=== PATIENT | male | born 1945 | race Caucasian/White ===

== ENCOUNTER 2017-09-14 11:17 | Emergency (ER) | payer OTHER ==
[2017-09-14] MEDS ORDERED: ACETAMINOPHEN 500 MG TAB ONE (12:11)
[2017-09-14] MEDS ORDERED: IPRATROPIUM BROM 0.5MG/2.5ML ONE (13:03)
[2017-09-14] MEDS ORDERED: ALBUTEROL 2.5 MG/3 ML NEB SOL ONE (13:03)
[2017-09-14] MEDS ORDERED: METHYLPREDNISOLONE 125 MG INJ ONE (13:03)
[2017-09-14] MEDS ORDERED: CEFTRIAXONE/SWI 1gm 1 GM/10 ML SYR ONE (13:03)
[2017-09-14] MEDS ORDERED: AZITHROMYCIN 500 MG/250 ML BAG ONE (13:03)
[2017-09-14] MEDS ORDERED: NA CHLORIDE 0.9% 1,000 ML ONE (13:04)
--- NOTE | 2017-09-14 13:06 | RAD REPORT ---
EXAM DESCRIPTION: RAD - Chest Pa And Lat (2 Views) - 09/14/2017 12:56 pm CLINICAL HISTORY: COUGH Fever. COMPARISON: CHEST PA AND LAT 2 VIEW dated 06/16/2014; CHEST PA AND LAT 2 VIEW dated 11/09/2013; CHEST SINGLE VIEW dated 11/01/2013; CHEST PA AND LAT 2 VIEW dated 09/06/2013 FINDINGS: The lungs are mildly hyperexpanded compatible with COPD. The heart is normal in size. No d isplaced fractures. IMPRESSION: Mild COPD.
[2017-09-14 13:32] LABS: Absolute Lymphocytes (CBC) 0.8 K/uL (0.7-4.9); Absolute Neutrophil 6.6 K/uL (1.8-8.0); Basophils % 0.5 % (0-1.3); Eosinophils % 0.4 % (0-4.4); Hematocrit 42.2 % (39.6-49.0); Lymphocytes % 9.1 % (15.3-44.8); MCH 30.8 pg (27.0-35.0); MCV 92.2 fL (80-100); Monocytes % 11.8 % (3.3-12.3); RBC Red Blood Cell Count 4.58 M/uL (4.33-5.43)
[2017-09-14 13:54] LABS: Albumin 3.6 g/dL (3.4-5.0); Bilirubin Total 1.5 mg/dL (0.2-1.0); Potassium 3.8 mmol/L (3.5-5.1)
--- NOTE | 2017-09-14 14:25 | EDPHYS ---
Physician Documentation [facility] Name: Herbert Diaz Age: 71 yrs Sex: Male : 1945 Arrival Date: 09/14/2017 Time: 11:20 Bed 25 Private MD: Morgan Lozano ED Physician Choco Cantu HPI: 09/14 12:40 This 71 yrs old Male presents to ER via Ambulatory with complaints of Flu moses Symptoms. 12:40 The patient has shortness of breath with light activity. Onset: The symptoms/episode moses began/occurred 3 day(s) ago. Duration: The symptoms are continuous, and are steadily getting worse. The patient's shortness of breath has no apparent modifying factors. Historical: - Allergies: 11:33 Warfarin Sodium; aj 11:33 NSAIDS (Non-Steroidal Anti-Inflammatory Drug); aj - Home Meds: 11:33 levothyroxine oral [Active]; atorvastatin oral oral [Active]; aj - PMHx: 11:33 Hyperlipidemia; Hypothyroidism; aj - PSHx: 11:33 LEFT KNEE SURGERY; aj - Immunization history:: Flu vaccine is up to date. - Social history:: Smoking status: Patient/guardian denies using tobacco. - Ebola Screening: : Patient negative for fever greater than or equal to 101.5 degrees Fahrenheit, and additional compatible Ebola Virus Disease symptoms Patient denies exposure to infectious person Patient denies travel to an Ebola-affected area in the 21 days before illness onset No symptoms or risks identified at this time. ROS: 12:40 Eyes: Negative for injury, pain, redness, and discharge, ENT: Negative for injury, moses pain, and discharge, Neck: Negative for injury, pain, and swelling, Cardiovascular: Negative for chest pain, palpitations, and edema, Abdomen/GI: Negative for abdominal pain, nausea, vomiting, diarrhea, and constipation, Back: Negative for injury and pain, : Negative for injury, bleeding, discharge, and swelling, MS/Extremity: Negative for injury and deformity, Skin: Negative for injury, rash, and discoloration, Neuro: Negative for headache, weakness, numbness, tingling, and seizure, Psych: Negative for depression, anxiety, suicide ideation, homicidal ideation, and hallucinations, Allergy/Immunology: Negative for hives, rash, and allergies, Endocrine: Negative for neck swelling, polydipsia, polyuria, polyphagia, and marked weight changes, Hematologic/Lymphatic: Negative for swollen nodes, abnormal bleeding, and unusual bruising. 12:40 Constitutional: Positive for body aches, fatigue, fever. 12:40 Respiratory: Positive for cough, shortness of breath, wheezing, expiratory. Exam: 12:40 Head/Face: Normocephalic, atraumatic. Eyes: Pupils equal round and reactive to light, moses extra-ocular motions intact. Lids and lashes normal. Conjunctiva and sclera are non-icteric and not injected. Cornea within normal limits. Periorbital areas with no swelling, redness, or edema. ENT: Nares patent. No nasal discharge, no septal abnormalities noted. Tympanic membranes are normal and external auditory canals are clear. Oropharynx with no redness, swelling, or masses, exudates, or evidence of obstruction, uvula midline. Mucous membranes moist. Neck: Trachea midline, no thyromegaly or masses palpated, and no cervical lymphadenopathy. Supple, full range of motion without nuchal rigidity, or vertebral point tenderness. No Meningismus. Chest/axilla: Normal chest wall appearance and motion. Nontender with no deformity. No lesions are appreciated. Cardiovascular: Regular rate and rhythm with a normal S1 and S2. No gallops, murmurs, or rubs. Normal PMI, no JVD. No pulse deficits. Abdomen/GI: Soft, non-tender, with normal bowel sounds. No distension or tympany. No guarding or rebound. No evidence of tenderness throughout. Back: No spinal tenderness. No costovertebral tenderness. Full range of motion. Male : Normal genitalia with no discharge or lesions. Skin: Warm, dry with normal turgor. Normal color with no rashes, no lesions, and no evidence of cellulitis. MS/ Extremity: Pulses equal, no cyanosis. Neurovascular intact. Full, normal range of motion. Neuro: Awake and alert, GCS 15, oriented to person, place, time, and situation. Cranial nerves II-XII grossly intact. Motor strength 5/5 in all extremities. Sensory grossly intact. Cerebellar exam normal. Normal gait. Psych: Awake, alert, with orientation to person, place and time. Behavior, mood, and affect are within normal limits. 12:40 Constitutional: The patient appears febrile. 12:40 Respiratory: mild respiratory distress is noted, Respirations: labored breathing, that is mild, Breath sounds: bronchial sounds, rhonchi, that are moderate, + upper airway congestion. wheezing: inspiratory expiratory Respiratory rate: fever and chills Vital Signs: 11:33 BP 121 / 62; Pulse 64; Resp 20; Temp 100.1(TE); Pulse Ox 98% on R/A; Weight 83.91 kg; aj Height 5 ft. 8 in. (172.72 cm); 12:30 BP 138 / 88; Pulse 110; Resp 20; Pulse Ox 100% on 9% Nebulizer Mask; hb 13:45 BP 138 / 65; Pulse 100; Resp 18; Pulse Ox 99% on R/A; hb 11:33 Body Mass Index 28.13 (83.91 kg, 172.72 cm) aj MDM: 11:39 Patient medically screened. [facility] 12:40 Data reviewed: vital signs, nurses notes, lab test result(s), radiologic studies, plain moses films. 09/14 12:38 Order name: CBC with Diff; Complete Time: 14:21 [facility] 09/14 12:38 Order name: Comprehensive Metabolic Panel; Complete Time: 14:21 [facility] 09/14 12:38 Order name: Blood Culture Adult (2) [facility] 09/14 12:38 Order name: Flu; Complete Time: 14:21 [facility] 09/14 12:40 Order name: Chest Pa And Lat (2 Views) XRAY; Complete Time: 14:21 [facility] Administered Medications: 12:15 Drug: Tylenol 1000 mg Route: PO; hb 13:23 Drug: NS 0.9% 1000 ml Route: IV; Rate: 1 bolus; Site: left antecubital; hb 14:00 Follow up: Response: No adverse reaction; IV Status: Completed infusion hb 13:23 Drug: Albuterol - atroVENT (3:1) (2.5 mg - 0.5 mg) 3 ml Route: Nebulizer; hb 14:00 Follow up: Response: No adverse reaction hb 13:23 Drug: Rocephin - (cefTRIAXone) 2 grams Route: IVPB; Infused Over: 30 mins; Site: left hb antecubital; 13:24 Drug: Zithromax 500 mg Route: IVPB; Infused Over: 1 hrs; Site: left antecubital; hb 13:24 Drug: SOLU-Medrol 125 mg Route: IVP; Site: left antecubital; hb 14:40 Drug: Tamiflu 75 mg Route: PO; hb 14:40 Drug: predniSONE 20 mg Route: PO; hb Disposition: 09/14/17 14:25 Discharged to Home. Impression: Influenza due to other identified influenza virus - influenza B, Fever, unspecified, Acute upper respiratory infection, unspecified. - Condition is Stable. - Discharge Instructions: Fever, Adult, Influenza, Adult, Upper Respiratory Infection, Adult, Cool Mist Vaporizers, Upper Respiratory Infection, Adult, [id number], Influenza, Adult, Srvs-[id number], Cough, Adult, Fever, Adult, [id number]. - Prescriptions for Medrol (Christo) 4 mg Oral Tablets, Dose Pack - take 1 tablet by ORAL route as directed - follow package instructions; 1 packet. Albuterol Sulfate 90 mcg/actuation - inhale 1-2 puff by INHALATION route every 4-6 hours; 1 Inhaler. Tamiflu 75 mg Oral Capsule - take 1 tablet by ORAL route every 12 hours for 5 days; 10 tablet. Zithromax 500 mg Oral Tablet - take 1 tablet by ORAL route once daily for 5 days; 5 tablet. - Medication Reconciliation Form, Thank You Letter, Antibiotic Education, Prescription Opioid Use form. - Follow up: Morgan Lozano MD; When: 2 - 3 days; Reason: Recheck today's complaints, Continuance of care, Re-evaluation by your physician. - Problem is new. - Symptoms have improved. Signatures: Dispatcher [employer] EDYesenia Augustin RN RN aj Anderson, Corey, MD MD cha Baxter, Heather, RN RN Corrections: (The following items were deleted from the chart) 15:08 14:25 09/14/2017 14:25 Discharged to Home. Impression: Influenza due to other hb identified influenza virus - influenza B; Fever, unspecified; Acute upper respiratory infection, unspecified. Condition is Stable. Forms are Medication Reconciliation Form, Thank You Letter, Antibiotic Education, Prescription Opioid Use. Follow up: Morgan Lozano; When: 2 - 3 days; Reason: Recheck today's complaints, Continuance of care, Re-evaluation by your physician. Problem is new. Symptoms have improved. moses
--- NOTE | 2017-09-14 14:25 | ER ---
Nurse's Notes [facility] Name: Herbert Diaz Age: 71 yrs Sex: Male : 1945 Arrival Date: 09/14/2017 Time: 11:20 Bed 25 Private MD: Morgan Lozano Diagnosis: Influenza due to other identified influenza virus-influenza B;Fever, unspecified;Acute upper respiratory infection, unspecified Presentation: 09/14 11:31 Presenting complaint: Patient states: Flu like symptoms with fever since Thursday. aj Transition of care: patient was not received from another setting of care. Onset of symptoms was September 12, 2017. Risk Assessment: Do you want to hurt yourself or someone else? Patient reports no desire to harm self or others. Initial Sepsis Screen: Does the patient meet any 2 criteria? No. Patient's initial sepsis screen is negative. Does the patient have a suspected source of infection? No. Patient's initial sepsis screen is negative. Care prior to arrival: None. 11:31 Method Of Arrival: Ambulatory 11:31 Acuity: ARLENE 3 aj Triage Assessment: 11:33 General: Appears in no apparent distress. comfortable, Behavior is calm, cooperative, aj appropriate for age. Pain: Complains of pain in face and scalp. EENT: Reports nasal congestion nasal discharge. Neuro: Level of Consciousness is awake, alert, obeys commands, Oriented to person, place, time, situation, Appropriate for age. Respiratory: Reports cough that is Airway is patent Respiratory effort is even, unlabored, Respiratory pattern is regular, symmetrical. Derm: Skin is intact, is healthy with good turgor, Skin is pink, warm \T\ dry. normal. Historical: - Allergies: 11:33 Warfarin Sodium; aj 11:33 NSAIDS (Non-Steroidal Anti-Inflammatory Drug); aj - Home Meds: 11:33 levothyroxine oral [Active]; atorvastatin oral oral [Active]; aj - PMHx: 11:33 Hyperlipidemia; Hypothyroidism; aj - PSHx: 11:33 LEFT KNEE SURGERY; aj - Immunization history:: Flu vaccine is up to date. - Social history:: Smoking status: Patient/guardian denies using tobacco. - Ebola Screening: : Patient negative for fever greater than or equal to 101.5 degrees Fahrenheit, and additional compatible Ebola Virus Disease symptoms Patient denies exposure to infectious person Patient denies travel to an Ebola-affected area in the 21 days before illness onset No symptoms or risks identified at this time. Screenin:15 Abuse screen: Denies threats or abuse. Denies injuries from another. Nutritional hb screening: No deficits noted. Tuberculosis screening: No symptoms or risk factors identified. Fall Risk None identified. Vital Signs: 11:33 BP 121 / 62; Pulse 64; Resp 20; Temp 100.1(TE); Pulse Ox 98% on R/A; Weight 83.91 kg; aj Height 5 ft. 8 in. (172.72 cm); 12:30 BP 138 / 88; Pulse 110; Resp 20; Pulse Ox 100% on 9% Nebulizer Mask; hb 13:45 BP 138 / 65; Pulse 100; Resp 18; Pulse Ox 99% on R/A; hb 11:33 Body Mass Index 28.13 (83.91 kg, 172.72 cm) ED Course: 11:20 Patient arrived in ED. sb2 11:20 Morgan Lozano MD is Private Physician. sb2 11:32 Triage completed. aj 11:33 Arm band placed on left wrist. Patient placed in an exam room. aj 11:39 Choco Cantu MD is Attending Physician. [facility] 11:39 Chloe Freitas, RUBIO is Primary Nurse. hb 12:00 Patient has correct armband on for positive identification. Bed in low position. Call hb light in reach. Side rails up X 1. 12:16 Pillow given. hb 12:53 X-ray completed. Patient tolerated procedure well. Patient moved back from radiology. jb2 12:53 Chest Pa And Lat (2 Views) XRAY In Process Unspecified. EDMS 14:23 Morgan Lozano MD is Referral Physician. moses Administered Medications: 12:15 Drug: Tylenol 1000 mg Route: PO; hb 13:23 Drug: NS 0.9% 1000 ml Route: IV; Rate: 1 bolus; Site: left antecubital; hb 14:00 Follow up: Response: No adverse reaction; IV Status: Completed infusion hb 13:23 Drug: Albuterol - atroVENT (3:1) (2.5 mg - 0.5 mg) 3 ml Route: Nebulizer; hb 14:00 Follow up: Response: No adverse reaction hb 13:23 Drug: Rocephin - (cefTRIAXone) 2 grams Route: IVPB; Infused Over: 30 mins; Site: left hb antecubital; 13:24 Drug: Zithromax 500 mg Route: IVPB; Infused Over: 1 hrs; Site: left antecubital; hb 13:24 Drug: SOLU-Medrol 125 mg Route: IVP; Site: left antecubital; hb 14:40 Drug: Tamiflu 75 mg Route: PO; hb 14:40 Drug: predniSONE 20 mg Route: PO; hb Outcome: 14:25 Discharge ordered by MD. lopes 15:08 Patient left the ED. hb Signatures: Dispatcher [employer] Yesenia Church RN RN aj Anderson, Corey, MD MD cha Buechter, Jesse jb2 Baxter, Heather, RN RN Miguelina Bernard sb2
[2017-09-14] MEDS ORDERED: predniSONE 10 MG TAB ONE (14:35)
[2017-09-14] MEDS ORDERED: OSELTAMIVIR 75 MG CAP ONE (14:35)
[2017-09-14 15:11] VITALS: TEMP 100.1
[2017-09-14 15:13] VITALS: BP 138/65; O2SAT 99
== END 2017-09-14 15:08 | disposition home or self-care (01) ==
LOC: ER 11:17
DX: J11.1 Influenza due to unidentified influenza virus with other respiratory manifestations (principal); R50.9 Fever, unspecified; J06.9 Acute upper respiratory infection, unspecified; Z88.8 Allergy status to other drugs, medicaments and biological substances; E78.5 Hyperlipidemia, unspecified; E03.9 Hypothyroidism, unspecified
CPT/HCPCS: 36415; 71046; 80053; 85025; 87040 ×2; 87804 ×2; 94640; 96361; 96374; 96375; 99284; J0456; J0696; J2930; J7030; J7512

== ENCOUNTER 2020-03-06 21:12 | Emergency (ER) | payer OTHER ==
--- NOTE | 2020-03-06 22:37 | ER ---
Nurse's Notes [facility] Name: Herbert Diaz Age: 74 yrs Sex: Male : 1945 Arrival Date: 03/06/2020 Time: 21:13 Bed 13 Private MD: Diagnosis: Vertigo of central origin, unspecified ear;Coronavirus infection, unspecified Presentation: 03/06 21:17 Chief complaint: Patient states: I had a fever at 2000 of 103.0 I took 1g of Tylenol at jb4 1999. I have also been getting dizzy when I have the fever. 21:17 Coronavirus screen: Client denies travel out of the [place] in the last 14 days. Client jb4 presents with at least one sign or symptom that may indicate coronavirus-19. Standard/surgical mask placed on the client. Client reports previous positive COVID test result. Ebola Screen: Patient negative for fever greater than or equal to 101.5 degrees Fahrenheit, and additional compatible Ebola Virus Disease symptoms. Initial Sepsis Screen: Does the patient meet any 2 criteria? No. Patient's initial sepsis screen is negative. Does the patient have a suspected source of infection? No. Patient's initial sepsis screen is negative. Risk Assessment: Do you want to hurt yourself or someone else? Patient reports no desire to harm self or others. Onset of symptoms was February 27, 2020. Transition of care: patient was not received from another setting of care. 21:17 Method Of Arrival: Ambulatory [facility] 21:17 Acuity: ARLENE 3 jb4 Historical: - Allergies: 21:17 NSAIDS (Non-Steroidal Anti-Inflammatory Drug); jb4 21:17 Warfarin Sodium; jb4 - Home Meds: 21:17 atorvastatin Oral [Active]; levothyroxine oral [Active]; jb4 - PMHx: 21:17 Hyperlipidemia; Hypothyroidism; nephrotic syndrome; jb4 - PSHx: 21:17 LEFT KNEE SURGERY; jb4 - Immunization history:: Adult Immunizations up to date. - Social history:: Smoking status: Patient denies any tobacco usage or history of. Patient/guardian denies using alcohol, street drugs. Screenin:17 Abuse screen: Denies threats or abuse. Nutritional screening: No deficits noted. jb4 Tuberculosis screening: No symptoms or risk factors identified. Fall Risk None identified. Assessment: 21:17 General: Appears in no apparent distress. comfortable, Behavior is calm, cooperative, jb4 appropriate for age. Pain: Denies pain. Neuro: Level of Consciousness is awake, alert, obeys commands, Oriented to person, place, time, situation. Cardiovascular: Patient's skin is warm and dry. Respiratory: Airway is patent Respiratory effort is even, unlabored, Respiratory pattern is regular, symmetrical, Denies cough, shortness of breath labored breathing. GI: No signs and/or symptoms were reported involving the gastrointestinal system. : No signs and/or symptoms were reported regarding the genitourinary system. EENT: No signs and/or symptoms were reported regarding the EENT system. Derm: Skin is intact, Skin is pink, warm \T\ dry. Musculoskeletal: Circulation, motion, and sensation intact. Range of motion:. 22:10 Reassessment: Patient appears in no apparent distress at this time. Patient and/or jb4 family updated on plan of care and expected duration. Pain level reassessed. Patient is alert, oriented x 3, equal unlabored respirations, skin warm/dry/pink. Vital Signs: 21:17 BP 126 / 53; Pulse 74; Resp 16; Temp 100.3(O); Pulse Ox 94% on R/A; Weight 83.91 kg jb4 (R); Height 5 ft. 8 in. (172.72 cm) (R); Pain 0/10; 22:00 BP 122 / 56; Pulse 68; Resp 16; Pulse Ox 95% on R/A; jb4 21:17 Body Mass Index 28.13 (83.91 kg, 172.72 cm) jb4 ED Course: 21:13 Patient arrived in ED. cl3 21:17 Arm band placed on right wrist. jb4 21:17 Patient has correct armband on for positive identification. Bed in low position. Call jb4 light in reach. Side rails up X 1. 21:30 Phong Steven, RUBIO is Primary Nurse. jb4 21:32 Daniel Marcano MD is Attending Physician. tw4 21:37 Triage completed. jb4 21:49 CXR XRAY In Process Unspecified. EDMS 22:49 No provider procedures requiring assistance completed. Patient did not have IV access jb4 during this emergency room visit. Administered Medications: 22:30 Drug: Meclizine 25 mg Route: PO; jb4 22:50 Follow up: Response: No adverse reaction jb4 Outcome: 22:36 Discharge ordered by . tw4 22:49 Discharged to home via wheelchair, with family. jb4 22:49 Condition: stable 22:49 Discharge instructions given to patient, family, Instructed on discharge instructions, follow up and referral plans. medication usage, Demonstrated understanding of instructions, follow-up care, medications, Prescriptions given X 2. 22:50 Patient left the ED. jb4 Signatures: Dispatcher [employer] EDPhong Roberson, RN RN jb4 Daniel Marcano MD MD tw4 Sarita Finn cl3
--- NOTE | 2020-03-06 22:37 | EDPHYS ---
Physician Documentation [facility] Name: Herbert Diaz Age: 74 yrs Sex: Male : 1945 Arrival Date: 03/06/2020 Time: 21:13 Bed 13 Private MD: ED Physician Daniel Marcano HPI: 03/07 03:09 This 74 yrs old Male presents to ER via Ambulatory with complaints of Fever, tw4 Covid+. 03:09 The patient reports fever, not measured (subjective). Onset: The symptoms/episode tw4 began/occurred today. Modifying factors: there are no obvious modifying factors. Associated signs and symptoms: Pertinent positives:. Severity of symptoms: At their worst the symptoms were moderate in the emergency department the symptoms are unchanged. The patient has not experienced similar symptoms in the past. Historical: - Allergies: 03/06 21:17 NSAIDS (Non-Steroidal Anti-Inflammatory Drug); jb4 21:17 Warfarin Sodium; jb4 - Home Meds: 21:17 atorvastatin Oral [Active]; levothyroxine oral [Active]; jb4 - PMHx: 21:17 Hyperlipidemia; Hypothyroidism; nephrotic syndrome; jb4 - PSHx: 21:17 LEFT KNEE SURGERY; jb4 - Immunization history:: Adult Immunizations up to date. - Social history:: Smoking status: Patient denies any tobacco usage or history of. Patient/guardian denies using alcohol, street drugs. ROS: 03/07 03:09 Cardiovascular: Negative for chest pain, palpitations, and edema, Respiratory: Negative tw4 for shortness of breath, cough, wheezing, and pleuritic chest pain, Abdomen/GI: Negative for abdominal pain, nausea, vomiting, diarrhea, and constipation, Back: Negative for injury and pain, MS/Extremity: Negative for injury and deformity, Skin: Negative for injury, rash, and discoloration. Constitutional: Positive for fever, Negative for body aches, chills, fatigue. Neuro: Positive for dizziness, Negative for altered mental status, gait disturbance, headache, hearing loss, loss of consciousness, numbness. Exam: 03:09 Constitutional: This is a well developed, well nourished patient who is awake, alert, tw4 and in no acute distress. Head/Face: Normocephalic, atraumatic. Chest/axilla: Normal chest wall appearance and motion. Nontender with no deformity. No lesions are appreciated. Cardiovascular: Regular rate and rhythm with a normal S1 and S2. No gallops, murmurs, or rubs. Normal PMI, no JVD. No pulse deficits. Respiratory: Lungs have equal breath sounds bilaterally, clear to auscultation and percussion. No rales, rhonchi or wheezes noted. No increased work of breathing, no retractions or nasal flaring. Abdomen/GI: Soft, non-tender, with normal bowel sounds. No distension or tympany. No guarding or rebound. No evidence of tenderness throughout. Back: No spinal tenderness. No costovertebral tenderness. Full range of motion. MS/ Extremity: Pulses equal, no cyanosis. Neurovascular intact. Full, normal range of motion. Neuro: Awake and alert, GCS 15, oriented to person, place, time, and situation. Cranial nerves II-XII grossly intact. Motor strength 5/5 in all extremities. Sensory grossly intact. Cerebellar exam normal. Normal gait. Vital Signs: 03/06 21:17 BP 126 / 53; Pulse 74; Resp 16; Temp 100.3(O); Pulse Ox 94% on R/A; Weight 83.91 kg jb4 (R); Height 5 ft. 8 in. (172.72 cm) (R); Pain 0/10; 22:00 BP 122 / 56; Pulse 68; Resp 16; Pulse Ox 95% on R/A; jb4 21:17 Body Mass Index 28.13 (83.91 kg, 172.72 cm) jb4 MDM: 21:34 Patient medically screened. tw4 03/07 03:11 Differential diagnosis: viral Infection, bacterial infection. Data reviewed: vital tw4 signs, nurses notes. Data interpreted: Pulse oximetry: Interpretation: normal. Counseling: I had a detailed discussion with the patient and/or guardian regarding: the historical points, exam findings, and any diagnostic results supporting the discharge/admit diagnosis, lab results, radiology results. Special discussion: I discussed with the patient/guardian in detail that at this point there is no indication for admission to the hospital. It is understood, however, that if the symptoms persist or worsen the patient needs to return immediately for re-evaluation. 03/06 21:35 Order name: CXR XRAY tw4 03/06 21:35 Order name: Document PUI#; Complete Time: 21:46 tw4 03/06 21:35 Order name: Droplet/Contact Precautions; Complete Time: 21:46 tw4 03/06 21:35 Order name: [facility] [id number]/ ; Complete Time: 21:46 tw4 03/06 21:35 Order name: O2 Per Protocol; Complete Time: 21:46 tw4 Administered Medications: 03/06 22:30 Drug: Meclizine 25 mg Route: PO; jb4 22:50 Follow up: Response: No adverse reaction jb4 Disposition: 03/06/20 22:36 Discharged to Home. Impression: Vertigo of central origin, unspecified ear, Coronavirus infection, unspecified. - Condition is Stable. - Discharge Instructions: Vertigo, Vertigo, [id number], COVID-19. - Prescriptions for Meclizine 25 mg Oral Tablet - take 1 tablet by ORAL route every 8 hours As needed; 30 tablet. Albuterol Sulfate 2.5 mg /3 mL (0.083 %) Inhalation Solution for Nebulization - inhale 1 unit by NEBULIZATION route every 8 hours As needed; 1 box. - Medication Reconciliation Form, Thank You Letter, Antibiotic Education, Prescription Opioid Use form. - Follow up: Private Physician; When: Upon discharge from the Emergency Department; Reason: Recheck today's complaints, Continuance of care, Re-evaluation by your physician. - Problem is new. - Symptoms have improved. Signatures: Dispatcher [employer] EDPhong Roberson RN RN jb4 Daniel Marcano MD MD tw4 Corrections: (The following items were deleted from the chart) 21:46 21:35 Labs collected and sent ordered. tw4 jb4 22:13 21:36 CORONAVIRUS+MR.LAB.BRZ ordered. EDAZ EDMS 22:14 21:36 Influenza Screen (A \T\ B)+BA.LAB.BRZ ordered. EDAZ EDMS 22:14 21:36 Group A Streptococcus Rapid Sc+BA.LAB.BRZ ordered. EDAZ EDMS 22:50 22:36 03/06/2020 22:36 Discharged to Home. Impression: Vertigo of central origin, jb4 unspecified ear; Coronavirus infection, unspecified. Condition is Stable. Forms are Medication Reconciliation Form, Thank You Letter, Antibiotic Education, Prescription Opioid Use. Follow up: Private Physician; When: Upon discharge from the Emergency Department; Reason: Recheck today's complaints, Continuance of care, Re-evaluation by your physician. Problem is new. Symptoms have improved. tw4
[2020-03-06] MEDS ORDERED: MECLIZINE HCL 12.5 MG TAB ONE (22:43)
--- NOTE | 2020-03-07 08:25 | RAD REPORT ---
EXAM DESCRIPTION: RAD - Chest Single View - 03/06/2020 9:49 pm CLINICAL HISTORY: SOB Chest pain. COMPARISON: Chest Pa And Lat (2 Views) dated 09/14/2017; CHEST PA AND LAT 2 VIEW dated 06/16/2014; RICHARD ST PA AND LAT 2 VIEW dated 11/09/2013; CHEST SINGLE VIEW dated 11/01/2013 FINDINGS: Portable technique limits examination quality. Moderate bilateral pulmonary opacities are noted suspicious for pneumonia. The heart is mildly promin ent in size. No displaced fractures. IMPRESSION: Moderate bilateral pneumonia pattern.
[2020-03-08 21:21] VITALS: TEMP 100.3
[2020-03-08 21:22] VITALS: BP 122/56; O2SAT 95
== END 2020-03-06 22:50 | disposition home or self-care (01) ==
LOC: ER 21:12
DX: U07.1 COVID-19 (principal); H81.4 Vertigo of central origin; E03.9 Hypothyroidism, unspecified; E78.5 Hyperlipidemia, unspecified; Z88.6 Allergy status to analgesic agent; Z88.8 Allergy status to other drugs, medicaments and biological substances
CPT/HCPCS: 71045; 99283

== ENCOUNTER 2020-03-08 00:46 | Inpatient (IN) | payer OTHER ==
[2020-03-08 01:25] LABS: Absolute Lymphocytes (CBC) 0.4 K/uL (0.7-4.9); Basophils % 0.4 % (0-1.3); Hematocrit 36.5 % (39.6-49.0); Lymphocytes % 3.2 % (15.3-44.8); MPV 9.5 fL (7.6-11.3); Protime INR 1.48; RBC Red Blood Cell Count 3.97 M/uL (4.33-5.43)
[2020-03-08] MEDS ORDERED: ACETAMINOPHEN 325 MG TABLET ONE (01:26)
[2020-03-08] MEDS ORDERED: dexAMETHasone 4 MG/ML VIAL ONE (01:26)
[2020-03-08] MEDS ORDERED: ALBUTEROL INHALER 60 PUFF/8 GM IH ONE (01:27)
[2020-03-08 01:39] LABS: Albumin 2.5 g/dL (3.4-5.0); Bilirubin Direct 0.3 mg/dL (0-0.2); Bilirubin Total 1.1 mg/dL (0.2-1.0); Magnesium 2.3 mg/dL (1.8-2.4); Potassium 3.9 mmol/L (3.5-5.1); Protein, Total 6.6 g/dL (6.4-8.2); Troponin (Emerg Dept Use Only) 0.02 ng/mL (0.0-0.045)
[2020-03-08 02:04] LABS: Blood Morphology Comment NOT SEEN (NOT SEEN); Platelet Estimate ADEQ
[2020-03-08] MEDS ORDERED: NA CHLORIDE 0.9% 1,000 ML ONE (03:19)
--- NOTE | 2020-03-08 03:48 | EDPHYS ---
Physician Documentation [facility] Name: Herbert Diaz Age: 74 yrs Sex: Male : 1945 Arrival Date: 03/08/2020 Time: 00:55 Bed 8 Private MD: ED Physician Nolan Aviles HPI: 03/08 01:16 This 74 yrs old Male presents to ER via EMS with complaints of Shortness Of mh7 Breath. 01:16 The patient has shortness of breath at rest. Onset: The symptoms/episode began/occurred mh7 yesterday. 01:17 Duration: The symptoms are continuous, and are unchanged since they started. The mh7 patient's shortness of breath is aggravated by coughing, light activity, is alleviated by nothing. Associated signs and symptoms: Pertinent positives: non-productive cough, fever, Pertinent negatives: chest pain, productive cough, diaphoresis, dizziness, hemoptysis, loss of consciousness, nausea, numbness in extremities, visual changes, vomiting. Severity of symptoms: At their worst the symptoms were moderate last night, in the emergency department the symptoms are unchanged. The patient has been recently seen at the [facility] Emergency Department, this week. Historical: - Allergies: 01:00 NSAIDS (Non-Steroidal Anti-Inflammatory Drug); rv 01:00 Warfarin Sodium; rv - Home Meds: 01:00 atorvastatin Oral [Active]; levothyroxine oral [Active]; rv - PMHx: 01:00 Hyperlipidemia; Hypothyroidism; Nephrotic syndrome; rv - PSHx: 01:00 None; rv - Immunization history:: Adult Immunizations up to date. - Social history:: Smoking status: Patient denies any tobacco usage or history of. ROS: 01:17 Eyes: Negative for injury, pain, redness, and discharge, ENT: Negative for injury, mh7 pain, and discharge, Neck: Negative for injury, pain, and swelling, Cardiovascular: Negative for chest pain, palpitations, and edema, Abdomen/GI: Negative for abdominal pain, nausea, vomiting, diarrhea, and constipation, Back: Negative for injury and pain, : Negative for injury, bleeding, discharge, and swelling, MS/Extremity: Negative for injury and deformity, Skin: Negative for injury, rash, and discoloration, Neuro: Negative for headache, weakness, numbness, tingling, and seizure, Psych: Negative for depression, anxiety, suicide ideation, homicidal ideation, and hallucinations, Allergy/Immunology: Negative for hives, rash, and allergies, Endocrine: Negative for neck swelling, polydipsia, polyuria, polyphagia, and marked weight changes, Hematologic/Lymphatic: Negative for swollen nodes, abnormal bleeding, and unusual bruising. Exam: 01:17 Head/Face: Normocephalic, atraumatic. Eyes: Pupils equal round and reactive to light, mh7 extra-ocular motions intact. Lids and lashes normal. Conjunctiva and sclera are non-icteric and not injected. Cornea within normal limits. Periorbital areas with no swelling, redness, or edema. Neck: Trachea midline, no thyromegaly or masses palpated, and no cervical lymphadenopathy. Supple, full range of motion without nuchal rigidity, or vertebral point tenderness. No Meningismus. Chest/axilla: Normal chest wall appearance and motion. Nontender with no deformity. No lesions are appreciated. Cardiovascular: Regular rate and rhythm with a normal S1 and S2. No gallops, murmurs, or rubs. Normal PMI, no JVD. No pulse deficits. 01:17 Abdomen/GI: Soft, non-tender, with normal bowel sounds. No distension or tympany. No guarding or rebound. No evidence of tenderness throughout. Back: No spinal tenderness. No costovertebral tenderness. Full range of motion. Skin: Warm, dry with normal turgor. Normal color with no rashes, no lesions, and no evidence of cellulitis. MS/ Extremity: Pulses equal, no cyanosis. Neurovascular intact. Full, normal range of motion. Neuro: Awake and alert, GCS 15, oriented to person, place, time, and situation. Cranial nerves II-XII grossly intact. Motor strength 5/5 in all extremities. Sensory grossly intact. Cerebellar exam normal. Normal gait. Psych: Awake, alert, with orientation to person, place and time. Behavior, mood, and affect are within normal limits. 01:17 Constitutional: The patient appears alert, awake, febrile, obviously ill. 01:17 Respiratory: mild respiratory distress is noted, Respirations: tachypnea, that is mild, Breath sounds: rales, that are moderate, are located in both bases, rhonchi, that are mild, are scattered, Respiratory rate: 21 Vital Signs: 00:56 BP 130 / 57; Pulse 77; Resp 23; Temp 102; Pulse Ox 82% on R/A; Weight 83.91 kg; Height rv 5 ft. 8 in. (172.72 cm); Pain 0/10; 00:56 Pulse Ox 92% on 2 lpm NC; rv 01:08 BP 137 / 54; Pulse 72; Resp 21; Pulse Ox 97% on 2 lpm NC; rv 01:48 BP 123 / 54; Pulse 80; Resp 26; Pulse Ox 98% on 2 lpm NC; rv 03:00 BP 109 / 59; Pulse 72; Resp 25; Temp 98.4; Pulse Ox 100% on 2 lpm NC; rv 05:38 BP 114 / 56; Pulse 76; Resp 16; Temp 98.2; Pulse Ox 100% on 2 lpm NC; rv 00:56 Body Mass Index 28.13 (83.91 kg, 172.72 cm) rv MDM: 03:44 Differential diagnosis: Anemia Anxiety Reaction asthma, Bronchitis CHF exacerbation, [facility] Chronic Obstructive Pulmonary Disease Myocardial Infarction pneumonia, Pneumothorax Psychogenic pulmonary edema, Pulmonary Embolism reactive airway disease, Sepsis. Data reviewed: vital signs, nurses notes, EMS record, old medical records, lab test result(s), cardiac enzymes, CBC, electrolytes, urinalysis, EKG, radiologic studies, CT scan, plain films. Data interpreted: Pulse oximetry: on 2L(s) per nasal canula, is 90 %. Interpretation: hypoxia. Plan: O2 by NC applied. Counseling: I had a detailed discussion with the patient and/or guardian regarding: the historical points, exam findings, and any diagnostic results supporting the discharge/admit diagnosis, lab results, radiology results, the need for further work-up and treatment in the hospital. Response to treatment: the patient's symptoms have markedly improved after treatment. 03:47 Patient medically screened. [facility] 03/08 01:08 Order name: Basic Metabolic Panel [facility] 03/08 01:08 Order name: CBC with Diff; Complete Time: 02:54 [facility] 03/08 01:08 Order name: LFT's; Complete Time: 01:47 [facility] 03/08 01:08 Order name: Magnesium; Complete Time: 01:47 [facility] 03/08 01:08 Order name: NT PRO-BNP; Complete Time: 01:47 [facility] 03/08 01:08 Order name: PT-INR; Complete Time: 01:36 [facility] 03/08 01:08 Order name: Troponin (emerg Dept Use Only); Complete Time: 01:47 [facility] 03/08 01:08 Order name: Basic Metabolic Panel; Complete Time: 01:47 [facility] 03/08 01:09 Order name: Blood Culture Adult (2) [facility] 03/08 01:30 Order name: Manual Differential; Complete Time: 02:54 [facility] 03/08 02:55 Order name: Lactate [facility] 03/08 02:55 Order name: Procalcitonin [facility] 03/08 03:11 Order name: Urine Dipstick--Ancillary (enter results) [facility] 03/08 03:12 Order name: Urine Dipstick-Ancillary [facility] 03/08 01:08 Order name: XRAY Chest (1 view) [facility] 03/08 01:08 Order name: EKG; Complete Time: 01:09 [facility] 03/08 01:08 Order name: Cardiac monitoring; Complete Time: 01:10 [facility] 03/08 01:08 Order name: EKG - Nurse/Tech; Complete Time: 01:40 [facility] 03/08 01:08 Order name: IV Saline Lock; Complete Time: 01:10 [facility] 03/08 01:08 Order name: Labs collected and sent; Complete Time: 01:10 [facility] 03/08 01:08 Order name: O2 Per Protocol; Complete Time: 01:41 [facility] 03/08 02:03 Order name: CT Chest For PE Angio [facility] 03/08 03:27 Order name: COVID-19 03/08 03:46 Order name: CONS Physician Consult [facility] 03/08 05:08 Order name: SARS-COV-2 RT PCR [facility] 03/08 01:08 Order name: O2 Sat Monitoring; Complete Time: 01:41 7 Administered Medications: 01:10 Not Given (Duplicate Order): Tylenol 1000 mg PO once rv 01:15 Drug: Tylenol 650 mg Route: PO; rv 03:08 Follow up: Response: Temperature is decreased rv 01:15 Drug: Decadron - Dexamethasone 6 mg Route: IVP; Site: left antecubital; rv 03:08 Follow up: Response: No adverse reaction rv 01:15 Drug: Albuterol HFA Inhaler 2 puffs Route: Inhalation; rv 03:08 Follow up: Response: Marked relief of symptoms rv 03:13 Drug: NS 0.9% 1000 ml Route: IV; Rate: 1000 ml; Site: left antecubital; ea 04:42 Follow up: IV Status: Completed infusion; IV Intake: 1000ml rv Disposition: 03/08/20 03:47 Hospitalization ordered by Mone Harry for Observation. Preliminary diagnosis are COVID Pneumonia, Hypoxia. - Bed requested for Telemetry/MedSurg (observation). - Status is Observation. rv - Condition is Stable. - Problem is new. - Symptoms have improved. Signatures: Dispatcher [employer] EDMS oTnia Tapia RN RN tl1 Rama Aguirre RN Alli Bullard ea RN RN Nolan Barragan MD MD mh7 Corrections: (The following items were deleted from the chart) 03:53 03:47 Hospitalization Ordered by Mone Harry MD for Observation. Preliminary tl1 diagnosis is COVID Pneumonia; Hypoxia. Bed requested for Telemetry/MedSurg (observation). Status is Observation. Condition is Stable. Problem is new. Symptoms have improved. mh7 05:40 03:53 03/08/2020 03:47 Hospitalization Ordered by Mone Harry MD for Observation. rv Preliminary diagnosis is COVID Pneumonia; Hypoxia. Bed requested for Telemetry/MedSurg (observation). Status is Observation. Condition is Stable. Problem is new. Symptoms have improved. tl1
--- NOTE | 2020-03-08 03:48 | ER ---
Nurse's Notes [facility] Name: Herbert Diaz Age: 74 yrs Sex: Male : 1945 Arrival Date: 03/08/2020 Time: 00:55 Bed 8 Private MD: Diagnosis: COVID Pneumonia;Hypoxia Presentation: 03/08 00:56 Chief complaint: EMS states: diagnosed with COVID last Thursday, He was seen here and rv discharged. today he is SOB, with fever, and oxygen saturation is at 82% RA. Coronavirus screen: Client reports previous positive COVID test result. Date of collection: March 06, 2020. Ebola Screen: No symptoms or risks identified at this time. Initial Sepsis Screen: Does the patient meet any 2 criteria? No. Patient's initial sepsis screen is negative. Does the patient have a suspected source of infection? No. Patient's initial sepsis screen is negative. Risk Assessment: Do you want to hurt yourself or someone else? Patient reports no desire to harm self or others. Onset of symptoms was March 07, 2020 at 08:00. 00:56 Method Of Arrival: EMS: [facility] rv 00:56 Acuity: ARLENE 2 rv 01:43 Acuity: ARLENE 3 rv Triage Assessment: 01:01 General: Appears uncomfortable, Behavior is calm, cooperative. Pain: Denies pain. EENT: rv No signs and/or symptoms were reported regarding the EENT system. Neuro: Level of Consciousness is awake, alert, obeys commands, Oriented to person, place, time, situation. Cardiovascular: Patient's skin is warm and dry. Respiratory: Reports shortness of breath at rest Onset: The symptoms/episode began/occurred today, the patient has severe shortness of breath. Derm: Skin is intact. Historical: - Allergies: 01:00 NSAIDS (Non-Steroidal Anti-Inflammatory Drug); rv 01:00 Warfarin Sodium; rv - Home Meds: 01:00 atorvastatin Oral [Active]; levothyroxine oral [Active]; rv - PMHx: 01:00 Hyperlipidemia; Hypothyroidism; Nephrotic syndrome; rv - PSHx: 01:00 None; rv - Immunization history:: Adult Immunizations up to date. - Social history:: Smoking status: Patient denies any tobacco usage or history of. Screenin:01 Abuse screen: Denies threats or abuse. Denies injuries from another. Nutritional rv screening: No deficits noted. Tuberculosis screening: No symptoms or risk factors identified. Fall Risk None identified. Assessment: 01:02 Respiratory: Airway is patent Respiratory effort is labored, Breath sounds are coarse rv bilaterally. 01:02 Cardiovascular: Rhythm is regular. rv 01:45 Reassessment: OXYGEN SUPPLEMENT DECREASED FROM 6 LPM TO 2 LPM VIA NC, OXYGEN SAT IS AT rv 98%, TAKEN OFF OXYGEN AND SAT IS MAINTAINING AT 94-96% ROOM AIR. BLOOD PRESSURE AND HEART RATE NORMAL AND STABLE. PATIENT VERBALIZED RELIEF AFTER DOSE OF INHALER. Vital Signs: 00:56 BP 130 / 57; Pulse 77; Resp 23; Temp 102; Pulse Ox 82% on R/A; Weight 83.91 kg; Height rv 5 ft. 8 in. (172.72 cm); Pain 0/10; 00:56 Pulse Ox 92% on 2 lpm NC; rv 01:08 BP 137 / 54; Pulse 72; Resp 21; Pulse Ox 97% on 2 lpm NC; rv 01:48 BP 123 / 54; Pulse 80; Resp 26; Pulse Ox 98% on 2 lpm NC; rv 03:00 BP 109 / 59; Pulse 72; Resp 25; Temp 98.4; Pulse Ox 100% on 2 lpm NC; rv 05:38 BP 114 / 56; Pulse 76; Resp 16; Temp 98.2; Pulse Ox 100% on 2 lpm NC; rv 00:56 Body Mass Index 28.13 (83.91 kg, 172.72 cm) rv ED Course: 00:55 Patient arrived in ED. rv 00:56 Nolan Aviles MD is Attending Physician. 7 00:59 Triage completed. rv 01:00 Arm band placed on left wrist. Patient placed in the treatment room, on a stretcher, rv Patient notified of wait time. 01:00 Maintain EMS IV. Dressing intact. Good blood return noted. Site clean \T\ dry. Gauge \T\ rv site: G18 LAC. 01:02 Patient has correct armband on for positive identification. classroom monitor on. Pulse rv ox on. NIBP on. 01:08 Alli Osullivan RN is Primary Nurse. rv 01:23 XRAY Chest (1 view) In Process Unspecified. EDMS 01:25 First set of blood cultures drawn by me. rv 01:35 Second set of blood cultures drawn by me. rv 02:39 CT Chest For PE Angio In Process Unspecified. EDMS 03:46 Mone Harry MD is Hospitalizing Provider. [facility] 03:53 No provider procedures requiring assistance completed. Patient admitted, IV remains in ea place. Administered Medications: 01:10 Not Given (Duplicate Order): Tylenol 1000 mg PO once rv 01:15 Drug: Tylenol 650 mg Route: PO; rv 03:08 Follow up: Response: Temperature is decreased rv 01:15 Drug: Decadron - Dexamethasone 6 mg Route: IVP; Site: left antecubital; rv 03:08 Follow up: Response: No adverse reaction rv 01:15 Drug: Albuterol HFA Inhaler 2 puffs Route: Inhalation; rv 03:08 Follow up: Response: Marked relief of symptoms rv 03:13 Drug: NS 0.9% 1000 ml Route: IV; Rate: 1000 ml; Site: left antecubital; ea 04:42 Follow up: IV Status: Completed infusion; IV Intake: 1000ml rv Intake: 04:42 IV: 1000ml; Total: 1000ml. rv Outcome: 03:47 Decision to Hospitalize by Provider. mh7 04:14 Instructed on the need for admit, Demonstrated understanding of instructions. ea 05:39 Admitted to Tele accompanied by nurse, via wheelchair, room 404, Other SBAR, EKG Report rv called to ISADORA BERGERON 05:39 Condition: good 05:40 Patient left the ED. rv Signatures: Dispatcher [employer] EDRama Mason RN Alli Bullard ea RN Nolan Boyle MD MD [facility]
--- NOTE | 2020-03-08 04:20 | P.HP ---
Certification for Inpatient Patient admitted to: Inpatient With expected LOS: >2 Midnights Patient will require the following post-hospital care: None Practitioner: I am a practitioner with admitting privileges, knowledge of patient current condition, hospital course, and medical plan of care. Services: Services provided to patient in accordance with Admission requirements found in Title 42 Section 412.3 of the Code of Federal Regulations <Greg Chandler - Last Filed: 03/08/20 04:15> Patient History Date of Service: 03/08/20 Primary Care Provider: Blake Reason for admission: COVID pneumonia, Hypoxia History of Present Illness: This is a 74 y/o M with history of hypothyroidism, hyperlipidemia, and nephrotic syndrome who present to the ED via EMS today after being called out for increased shortness of breath that started about 3 days ago. Patient stated that him and his started to present with s/s of COVID last week. Was recently tested this past Thursday and resulted positive. Stated that he had been doing ok until the shortness of breath worsened. Patient hypoxic in the 80s per EMS. Was put on oxygen in the ED and worked up for dyspnea including having CT showing signs consistent with COVID pneumonia. Patient had stable labs otherwise. Medicine consulted at that time for admission for COVID pneumonia with hypoxia Home medications list reviewed: Yes - Past Medical/Surgical History Diabetic: No -: neprotic syndrome -: L. knee medial cartlidge surgery, 1960s - Family History Family History: Reviewed- Non-Contributory - Social History Smoking Status: Never smoker Smoking therapy provided: No Alcohol use: No CD- Drugs: No Caffeine use: No Place of Residence: Home <Greg Chandler - Last Filed: 03/08/20 04:15> Date of Service: 03/08/20 <Mone Harry - Last Filed: 03/10/20 04:42> Allergies NSAIDS (Non-Steroidal Anti-Inflamma Adverse Reaction (Severe, Verified 03/08/20 07:19) Anaphylaxis warfarin sodium [From Coumadin] Adverse Reaction (Verified 03/08/20 07:19) other NSAIDS (Non-Steroidal Allergy (Uncoded 09/14/17 15:11) Unknown Home Medications: Atorvastatin Calcium [Lipitor*] 20 mg PO BEDTIME 11/01/13 Levothyroxine [Synthroid*] 100 mcg PO [id number] 11/01/13 Amoxicillin/Potassium Clav [Amox-Clav 875-125 mg Tablet] 1 each PO Q12HR 03/08/20 Review of Systems General: Fever, Malaise Eyes: Unremarkable ENT: Unremarkable Respiratory: Cough, Shortness of Breath, SOB with Excertion Cardiovascular: Unremarkable Gastrointestinal: Unremarkable Musculoskeletal: Unremarkable Integumentary: Unremarkable Neurological: Unremarkable Lymphatics: Unremarkable <Greg Chandler - Last Filed: 03/08/20 04:15> Physical Examination - Vital Signs Temperature: 102 F Blood Pressure: 130/57 Pulse: 77 Respirations: 23 Pulse Ox (%): 82 (RA) - Physical Exam General: Alert, In no apparent distress, Oriented x3, Cooperative HEENT: PERRLA, Mucous membr. moist/pink, EOMI Neck: Supple, 2+ carotid pulse no bruit, JVD not distended Respiratory: Clear to auscultation bilaterally Cardiovascular: No edema, Normal pulses, Regular rate/rhythm, Normal S1 S2, No gallops, No rubs, No murmurs Capillary refill: <2 Seconds Gastrointestinal: Normal bowel sounds, Soft and benign, Non-distended, No ascites, No tenderness, No masses, No rebound, No guarding Musculoskeletal: No clubbing, No swelling, No contractures, No erythema, No tenderness, No warmth Integumentary: No rashes, No breakdown, No significant lesion, No tenderness/swelling, No erythema, No warmth, No cyanosis Neurological: Normal speech, Normal strength at 5/5 x4 extr, Normal tone, Cranial nerves 3-12 intact, Normal affect Lymphatics: No axilla or inguinal lymphadenopathy - Studies Laboratory Data (last 24 hrs) 03/08/20 01:05: PT 17.3 H, INR 1.48 03/08/20 01:05: WBC 11.0 H, Hgb 12.1 L, Hct 36.5 L, Plt Count 198 03/08/20 01:05: Sodium 137, Potassium 3.9, BUN 18, Creatinine 1.17, Glucose 125 H, Magnesium 2.3, Total Bilirubin 1.1 H, AST 78 H, ALT 70, Alkaline Phosphatase 127 H <Greg Chandler - Last Filed: 03/08/20 04:15> Assessment and Plan - Problems (Diagnosis) (1) COVID-19 Current Visit: Yes Status: Acute (2) Pneumonia due to COVID-19 virus Current Visit: Yes Status: Acute (3) Hypoxia Current Visit: Yes Status: Acute - Plan 1. Patient will be placed on telemetry and put on COVID floor for further monitoring of hypoxia 2. VS routinely and will stay on oxygen to maintain oxygen saturation above 92% 3. Steroids and Remdisivir for COVID pneumonia 4. Therapeutic lovenox for COVID 5. Pulmonolgy consulted for further evaluation and recommendations 6. Fever control as needed 7. Routine lab check daily for stabilization and to monitor CRP levels Discharge Plan: Home Plan to discharge in: Greater than 2 days - Advance Directives Does patient have a Living Will: No Does patient have a Durable POA for Healthcare: No - Code Status/Comfort Care Code Status Assessed: Yes Code Status: Full Code Critical Care: Yes (30) Time Spent Managing Pts Care (In Minutes): 80 <Greg Chandler - Last Filed: 03/08/20 04:15> - Problems (Diagnosis) (1) Hypoxia Current Visit: Yes Status: Acute (2) Pneumonia due to COVID-19 virus Current Visit: Yes Status: Acute <Mone Harry - Last Filed: 03/10/20 04:42> Date of Service: 03/08/20 Agree with plan of care as mentioned above. Monitor patient closely. If his condition worsens we will transfer to the COVID-19 ICU <Mone Harry - Last Filed: 03/10/20 04:42>
[2020-03-08] MEDS ORDERED: ACETAMINOPHEN 325 MG TABLET PO PRN (05:50)
[2020-03-08] MEDS ORDERED: Remdesivir 200 MG in NA CHLORIDE 0.9% 250 ML IV ONE ×2 (06:00→09:00)
[2020-03-08 06:39] LABS: Protime INR 1.48
--- NOTE | 2020-03-08 08:43 | RAD REPORT ---
EXAM DESCRIPTION: RAD - Chest Single View - 03/08/2020 1:23 am CLINICAL HISTORY: SOB Chest pain. COMPARISON: Chest Single View dated 03/06/2020; Chest Pa And Lat (2 Views) dated 09/14/2017; CHEST PA AND LAT 2 VIEW dated 06/16/2014; CHEST PA AND LAT 2 VIEW dated 11/09/2013 FINDINGS: Portable technique limits examination quality. Moderate worsening in bilateral pulmonary opacities is noted since the 03/06/2020 study. The heart is mildly enlarged in size. No displaced fractures. IMPRESSION: Moderate worsening in lung aeration since comparative study.
[2020-03-08] MEDS ORDERED: METHYLPREDNISOLONE 40 MG INJ IV SCH (09:00)
[2020-03-08] MEDS: METHYLPREDNISOLONE 125 MG INJ IV SCH ×2 (09:03→16:09)
[2020-03-08] MEDS: FAMOTIDINE 20 MG/2 ML VIAL IV SCH ×2 (09:03→20:54)
[2020-03-08] MEDS: ENOXAPARIN 100 MG/ML SYR SQ SCH ×2 (09:03→20:54)
[2020-03-08] MEDS ORDERED: ALBUTEROL INHALER 60 PUFF/8 GM IH PRN (11:02)
--- NOTE | 2020-03-08 11:48 | RAD REPORT ---
EXAM DESCRIPTION: CT Angiography Chest With Intravenous Contrast CLINICAL HISTORY: The patient is 74 years old and is Male; SOB TECHNIQUE: Axial computed tomographic angiography images of the chest with intravenous contrast. S agittal and coronal reformatted images were created and reviewed. This CT exam was performed using one or more of the following dose reduction techniques: automated exposure control, adjustment of t he mA and/or kV according to patient size, and/or use of iterative reconstruction technique. MIP reconstructed images were created and reviewed. COMPARISON: No relevant prior studies available. FINDINGS: PULMONARY ARTERIES: There are no obvious filling defects identified within the pulmonary arteries to suggest pulmonary embolism. AORTA: No acute findings. No thoracic aortic aneurysm. LUNGS: Extensive bilateral groundglass opacities are noted throughout the lungs. These are perip heral in location. Mild interlobular thickening is also present. PLEURAL SPACE: Unremarkable. No significant effusion. No pneumothorax. HEART: Unremarkable. No cardiomegaly. No significant pericardial effusion. No evidence of RV dysfunction. MEDIASTINUM: The tracheobronchial tree is widely patent. BONES/JOINTS: No acute fracture. No dislocation. SOFT TISSUES: Unremarkable. LYMPH NODES: Unremarkable. No enlarged lymph nodes. IMPRESSION: 1. No evidence of pulmonary embolism. 2. Commonly reported imaging features of (COVID-19 or viral) pneumonia are present. Other processes such as influenza pneumonia and organizing pneumonia, as can be seen with drug toxicity and connecti ve tissue disease, can cause a similar imaging pattern. [id number] Electronically signed by: Zahraa Marte MD 03/08/2020 3:07 AM MANAGER DISH Due to temporary technical issues with the PACS/Fluency reporting system, reports are being signed by the in house radiologist without review as a courtesy to ensure prompt reporting. The interpreting r adiologist is fully responsible for the content of the report.
[2020-03-08] MEDS ORDERED: BENZONATATE 100 MG CAP PO PRN (17:35)
[2020-03-08] MEDS ORDERED: HYDROCODONE/CHLORPHEN 5 ML/OSYR PO PRN (17:35)
[2020-03-08] MEDS: ATORVASTATIN 20 MG TAB PO SCH (20:54)
[2020-03-08] MEDS ORDERED: FLUTICASONE 110 MCG/PUFF 12 GM INH IH SCH (21:00)
[2020-03-08] MEDS ORDERED: ATORVASTATIN 40 MG TAB PO SCH (21:00)
[2020-03-09] MEDS: METHYLPREDNISOLONE 125 MG INJ IV SCH ×3 (00:49→17:54)
[2020-03-09] MEDS: LEVOTHYROXINE SOD 0.1 MG TAB PO SCH (06:16)
[2020-03-09 06:30] LABS: Absolute Lymphocytes (CBC) 0.5 K/uL (0.7-4.9); Basophils % 0.3 % (0-1.3); Hematocrit 36.1 % (39.6-49.0); Lymphocytes % 2.9 % (15.3-44.8); MPV 10.1 fL (7.6-11.3); RBC Red Blood Cell Count 3.92 M/uL (4.33-5.43)
[2020-03-09 07:19] LABS: Albumin 2.3 g/dL (3.4-5.0); Bilirubin Direct 0.2 mg/dL (0-0.2); Bilirubin Total 0.8 mg/dL (0.2-1.0); Ferritin 946.5 ng/mL (26-388); Protein, Total 6.3 g/dL (6.4-8.2)
--- NOTE | 2020-03-09 07:33 | P.PN ---
Subjective Date of Service: 03/08/20 Patient's hypoxia slowly worsening. Notified pulmonary and recommended high- flow. Will go ahead and transfer him to the COVID-19 ICU. Continue close monitoring. Review of Systems 10-point ROS is otherwise unremarkable Physical Examination - Vital Signs Temperature: 98.4 F Blood Pressure: 108/58 Pulse: 65 Respirations: 31 Pulse Ox (%): 91 - Physical Exam General: Alert, In no apparent distress, Oriented x3 Respiratory: Diminished, Rhonchi/gurgles Cardiovascular: Regular rate/rhythm, Normal S1 S2, No murmurs, Systolic murmur Gastrointestinal: Normal bowel sounds, Soft and benign, Non-distended Musculoskeletal: No clubbing, No swelling Assessment & Plan - Problems (Diagnosis) (1) Hypoxia Current Visit: Yes Status: Acute (2) Pneumonia due to COVID-19 virus Current Visit: Yes Status: Acute - Plan 1. Continue with IV antibiotics 2. Continue Remdesivir 3. Repeat chest x-ray is symptoms are progressively worsening 4. O2 per protocol 5. Pulmonary consultation 6. Continue with albuterol inhaler therapy; IV steroids; zinc and vitamin-C 7. O2 per protocol 8. Monitor LFTs 9. Repeat labs including D-dimer, ferritin, and CRP and LFTs 10. GI and DVT prophylaxis Discharge Plan: Home Plan to discharge in: Greater than 2 days - Advance Directives Does patient have a Living Will: No Does patient have a Durable POA for Healthcare: No - Code Status/Comfort Care Code Status: Full Code Critical Care: Yes Time Spent Managing PTS Care (In Minutes): 40
[2020-03-09 09:38] LABS: Blood Morphology Comment NOT SEEN (NOT SEEN); Platelet Estimate ADEQ
[2020-03-09] MEDS: FAMOTIDINE 20 MG/2 ML VIAL IV SCH ×2 (10:13→20:08)
[2020-03-09] MEDS: ENOXAPARIN 100 MG/ML SYR SQ SCH ×2 (10:14→20:07)
[2020-03-09] MEDS: Remdesivir 100 MG in NA CHLORIDE 0.9% 250 ML IV SCH (10:14)
[2020-03-09] MEDS ORDERED: GLUCAGON 1 MG/VIAL IM PRN (10:55)
[2020-03-09] MEDS ORDERED: D50W 25 GM/50 ML SYRINGE IV PRN (10:55)
--- NOTE | 2020-03-09 10:57 | P.CNS ---
Date of Consult: 03/09/20 Primary Care Provider: Blake Chief Complaint: COVID pneumonia, Hypoxia History of Present Illness: Patient is 74 years of age and multiple medical problems including nephrotic syndrome admitted with worsening dyspnea diagnosed with santamaria virus last week came in with hypoxemia CT changes characteristic of santamaria virus infection is doing a little better still requiring high concentrations of oxygen Allergies NSAIDS (Non-Steroidal Anti-Inflamma Adverse Reaction (Severe, Verified 03/08/20 07:19) Anaphylaxis warfarin sodium [From Coumadin] Adverse Reaction (Verified 03/08/20 07:19) other NSAIDS (Non-Steroidal Allergy (Uncoded 09/14/17 15:11) Unknown Home Medications: Atorvastatin Calcium [Lipitor*] 20 mg PO BEDTIME 11/01/13 Levothyroxine [Synthroid*] 100 mcg PO [id number] 11/01/13 Amoxicillin/Potassium Clav [Amox-Clav 875-125 mg Tablet] 1 each PO Q12HR 03/08/20 - Past Medical/Surgical History Diabetic: No -: nephrotic syndrome -: HLD -: hypothyroidism -: L. knee medial cartlidge surgery, 1960s - Social History Smoking Status: Never smoker Alcohol use: No CD- Drugs: No Caffeine use: No Place of Residence: Home Review of Systems General: Weakness Respiratory: Cough, Shortness of Breath Physical Examination Temp Pulse Resp BP Pulse Ox 98.4 F 65 31 H 108/58 L 91 03/09/20 07:33 03/09/20 07:33 03/09/20 07:33 03/09/20 07:33 03/09/20 07:33 - Problems (1) Pneumonia due to COVID-19 virus Current Visit: Yes Status: Acute Plan: Patient is 74 years of age admitted with pneumonia due to santamaria virus infection patient's oxygen requirements are high a trial on BiPAP ferritin and CRP levels are significantly elevated agree with full anticoagulation increase Solu-Medrol to 80 mg 3 times a day daily CRP and ferritin levels prone position ventilation
[2020-03-09] MEDS: ASCORBIC ACID 500 MG TABLET PO SCH ×2 (13:27→20:08)
[2020-03-09] MEDS: VITAMIN D 1000 UNIT TAB PO SCH (13:27)
[2020-03-09] MEDS: THIAMINE HCL 100 MG TABLET PO SCH (13:27)
[2020-03-09] MEDS: ATORVASTATIN 20 MG TAB PO SCH (20:08)
[2020-03-09] MEDS: MELATONIN 3 MG TABLET PO SCH (20:08)
[2020-03-09] MEDS: INSULIN GLARGINE 100 UNITS/ML SQ SCH (20:48)
[2020-03-10] MEDS: METHYLPREDNISOLONE 125 MG INJ IV SCH ×3 (00:25→16:05)
--- NOTE | 2020-03-10 04:38 | P.PN ---
Subjective Date of Service: 03/09/20 Patient has been on BiPAP and is feeling better. Oxygen requirements are at 40%. Continues to be short of breath at times. Will encourage him to get out of bed and sit in chair even while on BiPAP. Continue monitoring inflammatory markers. Patient requesting for chest x-ray. Did speak to him that he will have some inflammatory changes but nurses state that the family is also requesting so will order for a repeat chest x-ray for the morning. Patient received day 2. Over this severe today. Continue monitoring liver functions. Review of Systems 10-point ROS is otherwise unremarkable Physical Examination - Vital Signs Temperature: 97.9 F Blood Pressure: 98/46 Pulse: 48 Respirations: 29 Pulse Ox (%): 92 - Physical Exam General: Alert, In no apparent distress, Oriented x3, Moderate distress Respiratory: Diminished, Other ( Patient is tachypneic ) Cardiovascular: Other ( regular rate and rhythm) Gastrointestinal: Soft and benign, No tenderness Musculoskeletal: No clubbing, No swelling, No tenderness Integumentary: No rashes Neurological: Normal speech, Normal tone, Normal affect Lymphatics: No axilla or inguinal lymphadenopathy - Studies Medications List Reviewed: Yes Assessment & Plan - Problems (Diagnosis) (1) Hypoxia Current Visit: Yes Status: Acute (2) Pneumonia due to COVID-19 virus Current Visit: Yes Status: Acute - Plan 1. Continue with IV antivirals 2. Remdesivir; patient received day #2 today 3. Repeat chest x-ray 4. O2 per protocol- currently on BiPAP support 5. Pulmonary consultation appreciated 6. Continue with albuterol inhaler therapy; IV steroids; zinc and vitamin-C 7. O2 per protocol 8. Monitor LFTs 9. Monitor inflammatory markers 10. GI and DVT prophylaxis Discharge Plan: Home Plan to discharge in: Greater than 2 days - Advance Directives Does patient have a Living Will: No Does patient have a Durable POA for Healthcare: No - Code Status/Comfort Care Code Status: Full Code Critical Care: No Time Spent Managing PTS Care (In Minutes): 35
[2020-03-10 05:42] LABS: Absolute Lymphocytes (CBC) 0.5 K/uL (0.7-4.9); Basophils % 0.2 % (0-1.3); Hematocrit 34.2 % (39.6-49.0); Lymphocytes % 2.8 % (15.3-44.8); MPV 9.7 fL (7.6-11.3); RBC Red Blood Cell Count 3.74 M/uL (4.33-5.43)
[2020-03-10 05:56] LABS: Albumin 2.2 g/dL (3.4-5.0); Bilirubin Direct 0.1 mg/dL (0-0.2); Bilirubin Total 0.6 mg/dL (0.2-1.0)
[2020-03-10] MEDS: LEVOTHYROXINE SOD 0.1 MG TAB PO SCH (05:57)
[2020-03-10] MEDS: THIAMINE HCL 100 MG TABLET PO SCH (08:32)
[2020-03-10] MEDS: ASCORBIC ACID 500 MG TABLET PO SCH ×3 (08:32→20:16)
[2020-03-10] MEDS: VITAMIN D 1000 UNIT TAB PO SCH (08:32)
[2020-03-10] MEDS: FAMOTIDINE 20 MG/2 ML VIAL IV SCH ×2 (08:32→20:15)
--- NOTE | 2020-03-10 08:32 | RAD REPORT ---
EXAM DESCRIPTION: RAD - Chest Single View - 03/10/2020 6:03 am CLINICAL HISTORY: pneumonia COMPARISON: March 08, March 06 TECHNIQUE: AP portable chest image was obtained 03/10/2020 6:03 am . FINDINGS: Inspiratory effort is improved from prior imaging. Right lung field airspace disease not s ubstantially different when adjusting for the greater lung volume. There is worsening of the left narcisa g field airspace disease. Cardiomegaly is still present but does show some improvement. Pulmonary vasculature remains prominen t. Trachea is in the midline. No measurable pleural effusion and no pneumothorax. IMPRESSION: Worsening of the left lung pneumonia since prior day imaging. Right lung field pneumonia changes not substantially different. Cardiomegaly is present but improved.
[2020-03-10] MEDS: INSULIN GLARGINE 100 UNITS/ML SQ SCH ×2 (08:33→20:18)
[2020-03-10] MEDS: ENOXAPARIN 100 MG/ML SYR SQ SCH ×2 (08:33→20:16)
[2020-03-10] MEDS: Remdesivir 100 MG in NA CHLORIDE 0.9% 250 ML IV SCH (08:49)
--- NOTE | 2020-03-10 10:47 | P.PN ---
Subjective Date of Service: 03/10/20 Primary Care Provider: Blake Chief Complaint: COVID pneumonia, Hypoxia Subjective: No new changes, No C/O voiced Review of Systems 10-point ROS is otherwise unremarkable Physical Examination - Vital Signs Temperature: 98.4 F Blood Pressure: 106/64 Pulse: 52 Respirations: 31 Pulse Ox (%): 87 - Physical Exam General: Alert, In no apparent distress, Oriented x3 HEENT: Atraumatic, Normocephalic Neck: Supple, JVD not distended Respiratory: Diminished, Crackles/rales Cardiovascular: Regular rate/rhythm, Normal S1 S2 Capillary refill: <2 Seconds Gastrointestinal: Soft and benign, W/out hepatosplenomegaly Musculoskeletal: No clubbing, No swelling Integumentary: No rashes, No breakdown Neurological: Normal speech, Other (Alert , Awake ) Lymphatics: No axilla or inguinal lymphadenopathy - Studies Medications List Reviewed: Yes Assessment & Plan - Problems (Diagnosis) (1) COVID-19 Current Visit: Yes Status: Acute (2) Hypoxia Current Visit: Yes Status: Acute (3) Pneumonia due to COVID-19 virus Current Visit: Yes Status: Acute Discharge Plan: Home Plan to discharge in: Greater than 2 days Physician Review Additional Text: COVID 19 pneumonia Acute hypoxic respiratory failure Leukocytosis Elevated LFTs Elevated renal parameters Plan Monitor closely in ICU Saturating 91 in high-flow nasal cannula Continue with BiPAP support Appreciate help from pulmonology Continue Remdesivir; patient received day #3 today Repeat chest x-ray findings noted Bronchodilators p.r.n. Continue IV steroids Monitor CBC daily Leukocytosis possibly induced by steroids Monitor renal parameters and LFTs Monitor CRP in a.m. Anticoagulation Try to wean down oxygen requirement GI/DVT prophylaxis Time Spent Managing Pts Care (In Minutes): 45
--- NOTE | 2020-03-10 11:39 | P.PN ---
Subjective Date of Service: 03/10/20 Primary Care Provider: Blake Chief Complaint: COVID pneumonia, Hypoxia No change in patient's condition still requiring high concentrations of oxygen chest x-ray slightly worse Review of Systems General: Weakness Respiratory: Shortness of Breath Physical Examination - Vital Signs Temperature: 98.4 F Blood Pressure: 106/64 Pulse: 52 Respirations: 31 Pulse Ox (%): 87 - Physical Exam General: Alert, Moderate distress Respiratory: Crackles/rales - Studies Medications List Reviewed: Yes Assessment & Plan - Problems (Diagnosis) (1) Pneumonia due to COVID-19 virus Current Visit: Yes Status: Acute Plan: Respiratory failure chest x-ray looks slightly worse left worse than the right increase Solu-Medrol patient is anti coagulated continue with BiPAP alternating with high-flow incentive spirometry prone position ventilation increase insulin
[2020-03-10] MEDS: ATORVASTATIN 20 MG TAB PO SCH (20:15)
[2020-03-10] MEDS: MELATONIN 3 MG TABLET PO SCH (20:15)
[2020-03-10] MEDS ORDERED: GLUCAGON 1 MG/VIAL IM PRN (21:11)
[2020-03-10] MEDS ORDERED: D50W 25 GM/50 ML SYRINGE IV PRN (21:11)
[2020-03-11] MEDS: METHYLPREDNISOLONE 125 MG INJ IV SCH ×3 (00:04→16:26)
[2020-03-11] MEDS: LEVOTHYROXINE SOD 0.1 MG TAB PO SCH (05:30)
[2020-03-11 06:01] LABS: Albumin 2.2 g/dL (3.4-5.0); Bilirubin Direct 0.1 mg/dL (0-0.2); Bilirubin Total 0.6 mg/dL (0.2-1.0); Protein, Total 5.9 g/dL (6.4-8.2)
[2020-03-11] MEDS: INSULIN -REGULAR HUMAN 50 UNIT/0.5 ML ML SQ SCH ×4 (07:30→20:27)
[2020-03-11] MEDS: ASCORBIC ACID 500 MG TABLET PO SCH ×3 (08:32→20:27)
[2020-03-11] MEDS: FAMOTIDINE 20 MG/2 ML VIAL IV SCH ×2 (08:32→20:27)
[2020-03-11] MEDS: ENOXAPARIN 100 MG/ML SYR SQ SCH ×2 (08:32→20:26)
[2020-03-11] MEDS: THIAMINE HCL 100 MG TABLET PO SCH (08:32)
[2020-03-11] MEDS: VITAMIN D 1000 UNIT TAB PO SCH (08:32)
[2020-03-11] MEDS: Remdesivir 100 MG in NA CHLORIDE 0.9% 250 ML IV SCH (08:52)
[2020-03-11] MEDS: INSULIN GLARGINE 100 UNITS/ML SQ SCH ×2 (08:53→20:26)
--- NOTE | 2020-03-11 09:01 | P.PN ---
Subjective Date of Service: 03/11/20 Primary Care Provider: Blake Chief Complaint: COVID pneumonia, Hypoxia Subjective: No new changes, No C/O voiced (Patient still on high-flow/BiPAP. Denies any chest pain or shortness of breath) Review of Systems 10-point ROS is otherwise unremarkable Physical Examination - Vital Signs Temperature: 97.3 F Blood Pressure: 119/47 Pulse: 58 Respirations: 24 Pulse Ox (%): 88 - Physical Exam General: Alert, Oriented x3, Mild distress HEENT: Atraumatic, Normocephalic Neck: Supple, 2+ carotid pulse no bruit Respiratory: Diminished, Crackles/rales Cardiovascular: Regular rate/rhythm, Normal S1 S2 Capillary refill: <2 Seconds Gastrointestinal: Soft and benign, W/out hepatosplenomegaly Musculoskeletal: No clubbing, No swelling Integumentary: No rashes, No breakdown Neurological: Normal speech, Normal strength at 5/5 x4 extr Lymphatics: No axilla or inguinal lymphadenopathy - Studies Laboratory Tests 03/08/20 03/08/20 03/08/20 01:05 01:05 01:05 WBC 11.0 H RBC 3.97 L Hgb 12.1 L Hct 36.5 L MCV 92.0 MCH 30.6 MCHC 33.2 RDW 13.5 Plt Count 198 MPV 9.5 Neutrophils % 90.8 H Lymphocytes % 3.2 L Monocytes % 5.6 Eosinophils % 0.0 Basophils % 0.4 Absolute Neutrophils 10.0 H Segmented Neutrophils 84 H Band Neutrophils 7 H Absolute Lymphocytes 0.4 L Lymphocytes 5 L Monocytes 4 Absolute Monocytes 0.6 Absolute Eosinophils 0.0 Absolute Basophils 0.0 Platelet Estimate Adeq Morphology Comment Not seen PT 17.3 H INR 1.48 Sodium 137 Potassium 3.9 Chloride 105 Carbon Dioxide 22 BUN 18 Creatinine 1.17 Estimated GFR 61 L Glucose 125 H Lactic Acid Calcium 8.3 L Magnesium 2.3 Total Bilirubin 1.1 H Direct Bilirubin 0.3 H AST 78 H ALT 70 Alkaline Phosphatase 127 H Rapid Troponin I 0.02 NT-Pro-B Natriuret Pep 469 H Serum Total Protein 6.6 Albumin 2.5 L Globulin 4.1 H Albumin/Globulin Ratio 0.6 L Procalcitonin Urine pH Ur Specific [place] Glucose (UA)(Auto) Urine Ketones Urine Blood Urine Nitrite Ur Leukocyte Esterase Urine Total Protein SARS-CoV-2 RNA (RT-PCR) 03/08/20 03/08/20 03/08/20 03:08 03:08 03:11 WBC RBC Hgb Hct MCV MCH MCHC RDW Plt Count MPV Neutrophils % Lymphocytes % Monocytes % Eosinophils % Basophils % Absolute Neutrophils Segmented Neutrophils Band Neutrophils Absolute Lymphocytes Lymphocytes Monocytes Absolute Monocytes Absolute Eosinophils Absolute Basophils Platelet Estimate Morphology Comment PT INR Sodium Potassium Chloride Carbon Dioxide BUN Creatinine Estimated GFR Glucose Lactic Acid 1.5 Calcium Magnesium Total Bilirubin Direct Bilirubin AST ALT Alkaline Phosphatase Rapid Troponin I NT-Pro-B Natriuret Pep Serum Total Protein Albumin Globulin Albumin/Globulin Ratio Procalcitonin 1.10 H Urine pH Cancelled Ur Specific [place] Cancelled Glucose (UA)(Auto) Cancelled Urine Ketones Cancelled Urine Blood Cancelled Urine Nitrite Cancelled Ur Leukocyte Esterase Cancelled Urine Total Protein Cancelled SARS-CoV-2 RNA (RT-PCR) 03/08/20 03:40 WBC RBC Hgb Hct MCV MCH MCHC RDW Plt Count MPV Neutrophils % Lymphocytes % Monocytes % Eosinophils % Basophils % Absolute Neutrophils Segmented Neutrophils Band Neutrophils Absolute Lymphocytes Lymphocytes Monocytes Absolute Monocytes Absolute Eosinophils Absolute Basophils Platelet Estimate Morphology Comment PT INR Sodium Potassium Chloride Carbon Dioxide BUN Creatinine Estimated GFR Glucose Lactic Acid Calcium Magnesium Total Bilirubin Direct Bilirubin AST ALT Alkaline Phosphatase Rapid Troponin I NT-Pro-B Natriuret Pep Serum Total Protein Albumin Globulin Albumin/Globulin Ratio Procalcitonin Urine pH Ur Specific [place] Glucose (UA)(Auto) Urine Ketones Urine Blood Urine Nitrite Ur Leukocyte Esterase Urine Total Protein SARS-CoV-2 RNA (RT-PCR) Positive A Medications List Reviewed: Yes Assessment & Plan - Problems (Diagnosis) (1) COVID-19 Current Visit: Yes Status: Acute (2) Hypoxia Current Visit: Yes Status: Acute (3) Pneumonia due to COVID-19 virus Current Visit: Yes Status: Acute Physician Review Additional Text: COVID 19 pneumonia Acute hypoxic respiratory failure Leukocytosis Elevated LFTs Elevated renal parameters Plan Monitor closely in ICU Saturating 90 in high-flow nasal cannula Continue with BiPAP support Appreciate help from pulmonology Continue Remdesivir; patient received day #4 today Repeat chest x-ray findings noted Bronchodilators p.r.n. Continue IV steroids Insulin sliding scale and basal insulin Monitor CBC daily Leukocytosis possibly induced by steroids Monitor renal parameters and LFTs CRP Trending down Anticoagulation Try to wean down oxygen requirement Discussed with son GI/DVT prophylaxis Time Spent Managing Pts Care (In Minutes): 42
[2020-03-11] MEDS: MELATONIN 3 MG TABLET PO SCH (20:27)
[2020-03-11] MEDS: ATORVASTATIN 20 MG TAB PO SCH (20:27)
[2020-03-12] MEDS: METHYLPREDNISOLONE 125 MG INJ IV SCH ×3 (01:07→18:13)
[2020-03-12 04:59] LABS: Absolute Lymphocytes (CBC) 0.4 K/uL (0.7-4.9); Basophils % 0.6 % (0-1.3); Hematocrit 32.3 % (39.6-49.0); Lymphocytes % 2.3 % (15.3-44.8); MPV 9.2 fL (7.6-11.3); RBC Red Blood Cell Count 3.55 M/uL (4.33-5.43)
[2020-03-12 05:17] LABS: Albumin 1.9 g/dL (3.4-5.0); Bilirubin Direct 0.2 mg/dL (0-0.2); Bilirubin Total 0.7 mg/dL (0.2-1.0); C-Reactive Protein 76.4 mg/L (<3.00); Ferritin 1022.3 ng/mL (26-388); Potassium 3.9 mmol/L (3.5-5.1); Protein, Total 5.5 g/dL (6.4-8.2)
[2020-03-12] MEDS: LEVOTHYROXINE SOD 0.1 MG TAB PO SCH (06:05)
[2020-03-12] MEDS: INSULIN -REGULAR HUMAN 50 UNIT/0.5 ML ML SQ SCH ×4 (07:30→20:45)
[2020-03-12] MEDS: INSULIN GLARGINE 100 UNITS/ML SQ SCH ×2 (08:51→20:08)
[2020-03-12] MEDS: THIAMINE HCL 100 MG TABLET PO SCH (08:52)
[2020-03-12] MEDS: ASCORBIC ACID 500 MG TABLET PO SCH ×3 (08:52→20:16)
[2020-03-12] MEDS: ENOXAPARIN 100 MG/ML SYR SQ SCH (08:52)
[2020-03-12] MEDS: VITAMIN D 1000 UNIT TAB PO SCH (08:52)
[2020-03-12] MEDS: FAMOTIDINE 20 MG/2 ML VIAL IV SCH (08:52)
[2020-03-12] MEDS: Remdesivir 100 MG in NA CHLORIDE 0.9% 250 ML IV SCH (08:53)
--- NOTE | 2020-03-12 11:38 | P.PN ---
Subjective Date of Service: 03/12/20 Primary Care Provider: Blake Chief Complaint: Respiratory failure Patient feels slightly better still hypoxic requiring high concentrations of oxygen and CPAP Review of Systems General: Weakness Respiratory: Shortness of Breath Physical Examination - Vital Signs Temperature: 97.2 F Blood Pressure: 109/56 Pulse: 55 Respirations: 25 Pulse Ox (%): 83 - Studies Medications List Reviewed: Yes Assessment & Plan - Problems (Diagnosis) (1) Pneumonia due to COVID-19 virus Current Visit: Yes Status: Acute Plan: Respiratory failure from santamaria virus ferritin levels over 1000 CRP declining continue with present dose of steroids change to Eliquis increased EPAP
--- NOTE | 2020-03-12 13:50 | P.PN ---
Subjective Date of Service: 03/12/20 Primary Care Provider: Blake Chief Complaint: Respiratory failure Subjective: Improving (Patient currently on BiPAP.) Physical Examination - Vital Signs Temperature: 97.2 F Blood Pressure: 112/70 Pulse: 63 Respirations: 28 Pulse Ox (%): 91 - Physical Exam General: Alert, Cooperative HEENT: Atraumatic Neck: Supple Respiratory: Other (Currently on BiPAP) Neurological: Normal speech, Normal strength at 5/5 x4 extr, Normal tone, Normal affect - Studies Medications List Reviewed: Yes Assessment & Plan Discharge Plan: Home Plan to discharge in: 72 Hours Physician Review Additional Text: Impression: Acute hypoxic respiratory failure secondary to COVID 19 pneumonia Hyperglycemia suspect diabetes mellitus type 2 Hypothyroidism Hyperlipidemia Plan: Acute hypoxic respiratory failure secondary to COVID 19 pneumonia: Continue with IV Solu-Medrol. Patient also on Remdesivir. Continue to wean off BiPAP. Continue to monitor CRP and ferritin. Patient remains on Eliquis for prevention of DVT/PE. Case discussed with pulmonology. Will monitor closely. Hyperglycemia suspect diabetes mellitus type 2: Will change diet to 2000 ADA diet. Will obtain A1c to further evaluate. Patient on sliding scale. Patient also on basal insulin for strict diabetic control. Hypothyroidism: Continue home medication. Hyperlipidemia: Continue home medication Time Spent Managing Pts Care (In Minutes): 55
[2020-03-12] MEDS: APIXABAN 5 MG TABLET PO SCH (20:15)
[2020-03-12] MEDS: FAMOTIDINE 20 MG TAB PO SCH (20:16)
[2020-03-12] MEDS: ATORVASTATIN 20 MG TAB PO SCH (20:16)
[2020-03-12] MEDS: MELATONIN 3 MG TABLET PO SCH (20:21)
[2020-03-13] MEDS: METHYLPREDNISOLONE 125 MG INJ IV SCH ×3 (00:26→16:10)
[2020-03-13 05:40] LABS: C-Reactive Protein 76.5 mg/L (<3.00); Ferritin 1149.3 ng/mL (26-388)
[2020-03-13] MEDS: LEVOTHYROXINE SOD 0.1 MG TAB PO SCH (07:00)
[2020-03-13] MEDS: INSULIN -REGULAR HUMAN 50 UNIT/0.5 ML ML SQ SCH ×4 (07:30→21:00)
[2020-03-13] MEDS: THIAMINE HCL 100 MG TABLET PO SCH (07:40)
[2020-03-13] MEDS: INSULIN GLARGINE 100 UNITS/ML SQ SCH (07:41)
[2020-03-13] MEDS: VITAMIN D 1000 UNIT TAB PO SCH (07:41)
[2020-03-13] MEDS: FAMOTIDINE 20 MG TAB PO SCH ×2 (07:41→20:27)
[2020-03-13] MEDS: APIXABAN 5 MG TABLET PO SCH ×2 (07:41→20:27)
[2020-03-13] MEDS: ASCORBIC ACID 500 MG TABLET PO SCH ×3 (07:41→20:28)
--- NOTE | 2020-03-13 07:51 | RAD REPORT ---
EXAM DESCRIPTION: [facility] Single View03/13/2020 6:31 am CLINICAL HISTORY: Respiratory failure COMPARISON: March 10 FINDINGS: Overall no significant change in extensive bilateral pulmonary opacities. The heart remai ns enlarged
--- NOTE | 2020-03-13 11:59 | P.PN ---
Subjective Date of Service: 03/13/20 Primary Care Provider: Blake Chief Complaint: Respiratory failure No change in patient's condition is still hypoxic Review of Systems General: Weakness Respiratory: Shortness of Breath Physical Examination - Vital Signs Temperature: 98.3 F Blood Pressure: 107/51 Pulse: 58 Respirations: 20 Pulse Ox (%): 98 - Studies Microbiology Data (last 24 hrs): 03/08/20 01:34 Blood - Blood Aerobic Blood Culture - Final No growth in 5 days. 03/08/20 01:34 Blood - Blood Anaerobic Blood Culture - Final No growth in 5 days. 03/08/20 01:25 Blood - Blood Aerobic Blood Culture - Final No growth in 5 days. 03/08/20 01:25 Blood - Blood Anaerobic Blood Culture - Final No growth in 5 days. Medications List Reviewed: Yes Assessment & Plan - Problems (Diagnosis) (1) Pneumonia due to COVID-19 virus Current Visit: Yes Status: Acute Plan: Respiratory failure no change still on high concentrations of oxygen ferritin level is above 1000 CRP no change blood pressure stable. I have added Diflucan increased EPAP at low-dose spironolactone to [place] he has slight negative fluid balance
[2020-03-13] MEDS: SPIRONOLACTONE 25 MG TABLET PO SCH (12:11)
[2020-03-13] MEDS: FLUCONAZOLE 100 MG TAB PO SCH (12:14)
--- NOTE | 2020-03-13 15:33 | P.PN ---
Subjective Date of Service: 03/13/20 Primary Care Provider: Blake Chief Complaint: Respiratory failure Subjective: Other (slow improvement noted. Patient still requiring BiPAP intermittent high-flow as well. Clinically patient feels better.) Physical Examination - Vital Signs Temperature: 98.3 F Blood Pressure: 123/65 Pulse: 55 Respirations: 22 Pulse Ox (%): 94 - Physical Exam General: Alert, Cooperative Neck: Supple Respiratory: Other (Patient currently on BiPAP. Patient does not appear in distress.) Cardiovascular: Normal pulses Neurological: Normal speech, Normal strength at 5/5 x4 extr, Normal tone, Normal affect - Studies Microbiology Data (last 24 hrs): 03/08/20 01:34 Blood - Blood Aerobic Blood Culture - Final No growth in 5 days. 03/08/20 01:34 Blood - Blood Anaerobic Blood Culture - Final No growth in 5 days. 03/08/20 01:25 Blood - Blood Aerobic Blood Culture - Final No growth in 5 days. 03/08/20 01:25 Blood - Blood Anaerobic Blood Culture - Final No growth in 5 days. Medications List Reviewed: Yes Assessment & Plan Discharge Plan: Home Plan to discharge in: Greater than 2 days Physician Review Additional Text: Impression: Acute hypoxic respiratory failure secondary to bilateral COVID 19 pneumonia Hyperglycemia secondary to pre diabetes and medication-solu Medrol Hypothyroidism Hyperlipidemia Plan: Acute hypoxic respiratory failure secondary to bilateral COVID 19 pneumonia: Patient has finish course of Remdesivir. Case discussed in detail with pulmonology. CRP stable at around 76. Ferritin still elevated. Continue to wean off BiPAP and high-flow oxygen. FiO2 70-80% on BiPAP. Continue proning. Patient remains on Eliquis for prevention of DVT/PE. Continue supplementation. Will continue to monitor electrolytes, CRP and ferritin. Case discussed in detail with . Will continue to update. Tried to leave message with son but his mailbox was full. Will try again later. Anticipate improvement over the next 3-5 days. Hyperglycemia secondary to pre diabetes and medication Solu-Medrol: Blood sugars decreasing. Will discontinue basal insulin-Lantus. Continue with sliding scale. A1c 6.0. Patient with pre diabetes. Will monitor closely. Accu-Cheks in place. Continue with diabetic diet. Patient will need to have recheck of A1c in 3 months. Hypothyroidism: Continue home medication. Hyperlipidemia: Continue home medication Time Spent Managing Pts Care (In Minutes): 55
[2020-03-13] MEDS: MELATONIN 3 MG TABLET PO SCH (20:28)
[2020-03-13] MEDS: ATORVASTATIN 20 MG TAB PO SCH (20:28)
[2020-03-14] MEDS: METHYLPREDNISOLONE 125 MG INJ IV SCH ×3 (02:22→18:21)
[2020-03-14 05:48] LABS: Ferritin 1502.7 ng/mL (26-388)
[2020-03-14] MEDS: LEVOTHYROXINE SOD 0.1 MG TAB PO SCH (06:19)
--- NOTE | 2020-03-14 06:57 | RAD REPORT ---
EXAM DESCRIPTION: RAD - Chest Single View - 03/14/2020 6:26 am CLINICAL HISTORY: Respiratory failure COMPARISON: Portable March 13 TECHNIQUE: AP portable chest image was obtained 03/14/2020 6:26 am . FINDINGS: Bilateral airspace opacification is still present. Patient shown progressive clearing of t he left lung parenchymal opacification. Right-side is not clearly different. Cardiomegaly and promine nt vasculature remain. No measurable pleural effusion and no pneumothorax. No acute bony abnormality seen. No acute aortic findings suspected. IMPRESSION: Partial clearing of left lung opacification over comparison studies. Right lung field op acification has not changed. Move for Stable cardiomegaly
--- NOTE | 2020-03-14 07:42 | P.PN ---
Subjective Date of Service: 03/14/20 Primary Care Provider: Blake Chief Complaint: Respiratory failure Subjective: Other (Patient stable. Patient still on BiPAP. Fi02 this morning was at 75%.) Physical Examination - Vital Signs Temperature: 96.7 F Blood Pressure: 127/77 Pulse: 74 Respirations: 22 Pulse Ox (%): 93 - Physical Exam General: Alert, In no apparent distress, Cooperative HEENT: Atraumatic Neck: Supple Respiratory: Other (Patient on BiPAP. No subcu emphysema.) Cardiovascular: Normal pulses Neurological: Normal speech, Normal strength at 5/5 x4 extr, Normal tone, Normal affect - Studies Microbiology Data (last 24 hrs): 03/08/20 01:34 Blood - Blood Aerobic Blood Culture - Final No growth in 5 days. 03/08/20 01:34 Blood - Blood Anaerobic Blood Culture - Final No growth in 5 days. 03/08/20 01:25 Blood - Blood Aerobic Blood Culture - Final No growth in 5 days. 03/08/20 01:25 Blood - Blood Anaerobic Blood Culture - Final No growth in 5 days. Medications List Reviewed: Yes Assessment & Plan Discharge Plan: Home Plan to discharge in: Greater than 2 days Physician Review Additional Text: Impression: Acute hypoxic respiratory failure secondary to bilateral COVID 19 pneumonia Hyperglycemia secondary to pre diabetes and medication-solu Medrol Hypothyroidism Hyperlipidemia Plan: Acute hypoxic respiratory failure secondary to bilateral COVID 19 pneumonia: Patient has finished course of Remdesivir. Patient remains stable. Patient still on BiPAP. On 75% Fi02 this morning. Ferritin and CRP elevated. Case discussed with pulmonology. Will increase Solu-Medrol to 250 mg IV 3 times a day. Patient remains on Eliquis and vitamin supplementation. Diflucan was added as recommended by pulmonology. At a long discussion with the patient about the possibility of convalescent plasma. Will provide information on this. Will also discuss with his family. He will think about the possibility of adding convalescent plasma. Continue to wean off BiPAP. Will monitor levels closely with increased steroid. Will discuss with and son. Hyperglycemia secondary to pre diabetes and medication Solu-Medrol: Blood sugar stable. Lantus was discontinued yesterday. Continue sliding scale. Patient will get higher doses Solu-Medrol, therefore will need to monitor for elevated blood sugar. A1c 6.0. Patient with pre diabetes. Continue with diabetic diet. Patient will need to have recheck of A1c in 3 months. Hypothyroidism: Continue home medication. Hyperlipidemia: Continue home medication Time Spent Managing Pts Care (In Minutes): 55
[2020-03-14] MEDS: VITAMIN D 1000 UNIT TAB PO SCH (09:35)
[2020-03-14] MEDS: FAMOTIDINE 20 MG TAB PO SCH ×2 (09:35→21:35)
[2020-03-14] MEDS: ASCORBIC ACID 500 MG TABLET PO SCH ×3 (09:35→21:35)
[2020-03-14] MEDS: FLUCONAZOLE 100 MG TAB PO SCH (09:35)
[2020-03-14] MEDS: APIXABAN 5 MG TABLET PO SCH ×2 (09:35→21:33)
[2020-03-14] MEDS: THIAMINE HCL 100 MG TABLET PO SCH (09:35)
[2020-03-14] MEDS: SPIRONOLACTONE 25 MG TABLET PO SCH (09:35)
[2020-03-14] MEDS: INSULIN -REGULAR HUMAN 50 UNIT/0.5 ML ML SQ SCH ×4 (09:39→21:00)
[2020-03-14] MEDS ORDERED: LORazepam 2 MG/ML VIAL IV PRN (11:15)
[2020-03-14] MEDS ORDERED: GLUCERNA SHAKE 237 ML CAN PO PRN (12:05)
--- NOTE | 2020-03-14 12:31 | P.PN ---
Subjective Date of Service: 03/14/20 Primary Care Provider: Blake Chief Complaint: Respiratory failure No changes hypoxic still requiring high concentrations of oxygen he is alert responsive feeling a little better Review of Systems General: Weakness Respiratory: Shortness of Breath Physical Examination - Vital Signs Temperature: 98.2 F Blood Pressure: 135/60 Pulse: 61 Respirations: 20 Pulse Ox (%): 93 - Studies Medications List Reviewed: Yes Assessment & Plan - Problems (Diagnosis) (1) Pneumonia due to COVID-19 virus Current Visit: Yes Status: Acute Plan: Respiratory failure requiring high concentrations of oxygen no change inflammatory markers are also increasing will increase the dose of his steroids chest x-ray shows bilateral changes vital signs stable agree with higher doses of steroids
[2020-03-14] MEDS ORDERED: BUDESONIDE 0.25 MG/2 ML NEB NEB SCH (20:00)
[2020-03-14] MEDS: MELATONIN 3 MG TABLET PO SCH (21:34)
[2020-03-14] MEDS: ATORVASTATIN 20 MG TAB PO SCH (21:34)
[2020-03-15] MEDS: METHYLPREDNISOLONE 125 MG INJ IV SCH ×3 (01:30→16:40)
[2020-03-15 05:18] LABS: Absolute Lymphocytes (CBC) 0.2 K/uL (0.7-4.9); Basophils % 0.3 % (0-1.3); Hematocrit 35.9 % (39.6-49.0); MPV 8.1 fL (7.6-11.3); RBC Red Blood Cell Count 3.95 M/uL (4.33-5.43)
[2020-03-15] MEDS: LEVOTHYROXINE SOD 0.1 MG TAB PO SCH (05:47)
[2020-03-15 05:50] LABS: Albumin 1.9 g/dL (3.4-5.0); C-Reactive Protein 78.8 mg/L (<3.00); Potassium 3.7 mmol/L (3.5-5.1); Protein, Total 5.3 g/dL (6.4-8.2)
[2020-03-15 05:57] LABS: Blood Morphology Comment NOT SEEN (NOT SEEN); Platelet Estimate DECR
[2020-03-15] MEDS: FAMOTIDINE 20 MG TAB PO SCH ×2 (08:02→21:32)
[2020-03-15] MEDS: ASCORBIC ACID 500 MG TABLET PO SCH ×3 (08:02→21:31)
[2020-03-15] MEDS: THIAMINE HCL 100 MG TABLET PO SCH (08:02)
[2020-03-15] MEDS: FLUCONAZOLE 100 MG TAB PO SCH (08:02)
[2020-03-15] MEDS: APIXABAN 5 MG TABLET PO SCH ×2 (08:03→21:22)
[2020-03-15] MEDS: SPIRONOLACTONE 25 MG TABLET PO SCH (08:03)
[2020-03-15] MEDS: VITAMIN D 1000 UNIT TAB PO SCH (08:03)
[2020-03-15] MEDS: INSULIN -REGULAR HUMAN 50 UNIT/0.5 ML ML SQ SCH ×4 (08:06→21:00)
--- NOTE | 2020-03-15 08:27 | RAD REPORT ---
EXAM DESCRIPTION: Jessicat Single View03/15/2020 6:00 am CLINICAL HISTORY: Respiratory failure COMPARISON: March 14 FINDINGS: Mild improvement in the diffuse bilateral pulmonary opacities. Heart remains enlarged
[2020-03-15 11:23] LABS: Arterial Blood Carboxyhemoglob 1.3 % (0-1.5); Blood Gas Oxyhemoglobin 79.7 % (94-97); Blood O2 Saturation 81.8 % (92-98.5)
[2020-03-15] MEDS ORDERED: D50W 25 GM/50 ML SYRINGE IV PRN (12:01)
[2020-03-15] MEDS ORDERED: GLUCAGON 1 MG/VIAL IM PRN (12:01)
--- NOTE | 2020-03-15 12:04 | P.PN ---
Subjective Date of Service: 03/15/20 (Hospitalist) Primary Care Provider: Blake Chief Complaint: Respiratory failure No change still hypoxic requiring high concentrations of oxygen ferritin levels increasing CRP declining Review of Systems General: Weakness Respiratory: Shortness of Breath Physical Examination - Vital Signs Temperature: 98.2 F Blood Pressure: 125/58 Pulse: 68 Respirations: 25 Pulse Ox (%): 90 - Physical Exam General: Alert, Moderate distress Respiratory: Crackles/rales Cardiovascular: No edema, Normal S1 S2 - Studies Medications List Reviewed: Yes Assessment & Plan - Problems (Diagnosis) (1) Pneumonia due to COVID-19 virus Current Visit: Yes Status: Acute Plan: Respiratory failure from santamaria virus patient is on high doses of steroids CRP declining ferritin levels of increase chest x-ray shows mild improvement arterial blood gas this may be venous sees hypoxic he is on still 100% FiO2 90% sats continue with BiPAP
[2020-03-15] MEDS: INSULIN GLARGINE 100 UNITS/ML SQ SCH (16:41)
[2020-03-15] MEDS ORDERED: NA CHLORIDE 0.9% 250 ML IV SCH (21:00)
[2020-03-15] MEDS: ATORVASTATIN 20 MG TAB PO SCH (21:31)
[2020-03-15] MEDS: MELATONIN 3 MG TABLET PO SCH (21:32)
[2020-03-16] MEDS: METHYLPREDNISOLONE 125 MG INJ IV SCH ×3 (01:30→17:03)
[2020-03-16 04:56] LABS: Absolute Lymphocytes (CBC) 0.2 K/uL (0.7-4.9); Basophils % 0.2 % (0-1.3); Hematocrit 37.2 % (39.6-49.0); MPV 10.4 fL (7.6-11.3); RBC Red Blood Cell Count 4.05 M/uL (4.33-5.43)
[2020-03-16 05:31] LABS: ALT/SGPT 53 U/L (12-78); AST/SGOT 43 U/L (15-37); Alkaline Phosphatase 170 U/L (45-117); BUN Blood Urea Nitrogen 33 mg/dL (7-18); Bicarbonate 28 mmol/L (21-32); Bilirubin Total 1.8 mg/dL (0.2-1.0); Ferritin 1933.8 ng/mL (26-388); Glucose Level 120 mg/dL (74-106); Magnesium 2.7 mg/dL (1.8-2.4); Potassium 3.6 mmol/L (3.5-5.1); Protein, Total 5.3 g/dL (6.4-8.2); Sodium Level 144 mmol/L (136-145)
[2020-03-16] MEDS: LEVOTHYROXINE SOD 0.1 MG TAB PO SCH (06:47)
[2020-03-16] MEDS: INSULIN -REGULAR HUMAN 50 UNIT/0.5 ML ML SQ SCH ×4 (07:30→21:00)
[2020-03-16] MEDS ORDERED: NA CHLORIDE 0.9% 100 ML ONE (08:26)
[2020-03-16] MEDS: THIAMINE HCL 100 MG TABLET PO SCH (09:00)
[2020-03-16] MEDS: ASCORBIC ACID 500 MG TABLET PO SCH ×3 (09:00→20:53)
[2020-03-16] MEDS: APIXABAN 5 MG TABLET PO SCH ×2 (09:00→20:52)
[2020-03-16] MEDS: FLUCONAZOLE 100 MG TAB PO SCH (09:00)
[2020-03-16] MEDS: VITAMIN D 1000 UNIT TAB PO SCH (09:00)
[2020-03-16] MEDS: SPIRONOLACTONE 25 MG TABLET PO SCH (09:00)
[2020-03-16] MEDS: FAMOTIDINE 20 MG TAB PO SCH ×2 (09:00→20:52)
[2020-03-16] MEDS ORDERED: METHYLPREDNISOLONE 125 MG INJ ONE (09:41)
--- NOTE | 2020-03-16 12:54 | P.PN ---
Subjective Date of Service: 03/16/20 Primary Care Provider: Blake Chief Complaint: Respiratory failure No change in patient's condition he is feeling slightly better still on high concentrations of oxygen Review of Systems General: Weakness Respiratory: Shortness of Breath Physical Examination - Vital Signs Temperature: 97.9 F Blood Pressure: 129/91 Pulse: 69 Respirations: 29 Pulse Ox (%): 91 - Physical Exam General: Alert, Oriented x3 HEENT: Atraumatic Neck: Supple Respiratory: Crackles/rales, Friction rub Cardiovascular: Regular rate/rhythm - Studies Medications List Reviewed: Yes Assessment & Plan - Problems (Diagnosis) (1) Pneumonia due to COVID-19 virus Current Visit: Yes Status: Acute Plan: Respiratory failure continue with present treatment he has had a Remdesmir and plasma white count elevated at levofloxacin
[2020-03-16] MEDS: levoFLOXacin 500 MG TAB PO SCH (13:25)
[2020-03-16] MEDS: INSULIN GLARGINE 100 UNITS/ML SQ SCH (17:04)
[2020-03-16] MEDS: ATORVASTATIN 20 MG TAB PO SCH (20:51)
[2020-03-16] MEDS: MELATONIN 3 MG TABLET PO SCH (20:52)
[2020-03-16] MEDS: LACTOBACILLUS/ACIDOPHILUS TAB PO SCH (20:52)
[2020-03-17] MEDS: METHYLPREDNISOLONE 125 MG INJ IV SCH ×3 (01:00→17:14)
[2020-03-17 05:57] LABS: Absolute Lymphocytes (CBC) 0.2 K/uL (0.7-4.9); Basophils % 0.3 % (0-1.3); Hematocrit 37.4 % (39.6-49.0); Lymphocytes % 0.8 % (15.3-44.8); MPV 9.6 fL (7.6-11.3); RBC Red Blood Cell Count 4.13 M/uL (4.33-5.43)
[2020-03-17] MEDS: LEVOTHYROXINE SOD 0.1 MG TAB PO SCH (06:14)
[2020-03-17 06:19] LABS: Albumin 2.1 g/dL (3.4-5.0); C-Reactive Protein 59.5 mg/L (<3.00); Ferritin 1928.7 ng/mL (26-388); Magnesium 2.8 mg/dL (1.8-2.4); Potassium 3.7 mmol/L (3.5-5.1); Protein, Total 5.7 g/dL (6.4-8.2)
[2020-03-17] MEDS: INSULIN -REGULAR HUMAN 50 UNIT/0.5 ML ML SQ SCH ×4 (07:30→21:00)
[2020-03-17 09:33] LABS: Blood Morphology Comment NOT SEEN (NOT SEEN); Platelet Estimate DECR
[2020-03-17] MEDS: THIAMINE HCL 100 MG TABLET PO SCH (10:21)
[2020-03-17] MEDS: APIXABAN 5 MG TABLET PO SCH (10:21)
[2020-03-17] MEDS: FLUCONAZOLE 100 MG TAB PO SCH (10:21)
[2020-03-17] MEDS: LACTOBACILLUS/ACIDOPHILUS TAB PO SCH ×3 (10:21→21:25)
[2020-03-17] MEDS: FAMOTIDINE 20 MG TAB PO SCH ×2 (10:21→21:25)
[2020-03-17] MEDS: VITAMIN D 1000 UNIT TAB PO SCH (10:21)
[2020-03-17] MEDS: levoFLOXacin 500 MG TAB PO SCH (10:22)
[2020-03-17] MEDS: SPIRONOLACTONE 25 MG TABLET PO SCH (10:22)
[2020-03-17] MEDS: ASCORBIC ACID 500 MG TABLET PO SCH ×3 (10:22→21:26)
[2020-03-17] MEDS ORDERED: Pharmacy Consult 1 EA XX PRN (11:34)
--- NOTE | 2020-03-17 11:40 | P.PN ---
Subjective Date of Service: 03/17/20 Primary Care Provider: Blake Chief Complaint: Respiratory failure No change still requiring high concentrations of oxygen is not developed thrombocytopenia elevated white count possible superimposed sepsis Review of Systems General: Weakness Respiratory: Shortness of Breath Physical Examination - Vital Signs Temperature: 98.5 F Blood Pressure: 145/69 Pulse: 75 Respirations: 24 Pulse Ox (%): 90 - Physical Exam General: Alert, Moderate distress Respiratory: Crackles/rales Cardiovascular: No edema, Normal S1 S2 - Studies Medications List Reviewed: Yes Assessment & Plan - Problems (Diagnosis) (1) Pneumonia due to COVID-19 virus Current Visit: Yes Status: Acute Plan: Respiratory failure no changes been clearing on his x-ray increasing white count thrombocytopenia possible super added lactated infection I have added vancomycin and levofloxacin ferritin levels mild decrease CRP levels no change all more kidney function Dc Eliquis, Dc atorvastatin and spironolactone may be contributing to his thrombocytopenia
[2020-03-17] MEDS ORDERED: CEFEPIME 1 GM/VIAL IV SCH (11:46)
[2020-03-17] MEDS ORDERED: Levofloxacin500mg IV 500 MG/100 ML BAG IV SCH (12:00)
--- NOTE | 2020-03-17 13:29 | RAD REPORT ---
EXAM DESCRIPTION: RAD - Chest Single View - 03/17/2020 10:37 am CLINICAL HISTORY: COVID pneumonia; hypoxia Chest pain. COMPARISON: Chest Single View dated 03/15/2020; Chest Single View dated 03/14/2020; Chest Single Vie w dated 03/13/2020; Chest Single View dated 03/10/2020 FINDINGS: Portable technique limits examination quality. Moderate bilateral pulmonary opacities are again noted, slightly improved on the right since comparat pankaj study. The heart is mildly enlarged in size. No displaced fractures. IMPRESSION: Mild improvement in right lung aeration since comparative study.
[2020-03-17] MEDS: CEFEPIME/SWI 1gm 10 ML IV SCH ×2 (13:37→21:23)
[2020-03-17] MEDS: VANCOMYCIN 1.5 GM in NA CHLORIDE 0.9% 500 ML IVPB SCH (13:53)
[2020-03-17] MEDS: INSULIN GLARGINE 100 UNITS/ML SQ SCH (17:00)
[2020-03-17] MEDS: MELATONIN 3 MG TABLET PO SCH (21:23)
[2020-03-18] MEDS: METHYLPREDNISOLONE 125 MG INJ IV SCH ×3 (00:30→17:40)
[2020-03-18] MEDS: LEVOTHYROXINE SOD 0.1 MG TAB PO SCH (05:10)
[2020-03-18 05:44] LABS: Absolute Lymphocytes (CBC) 0.2 K/uL (0.7-4.9); Basophils % 0.2 % (0-1.3); Hematocrit 40.9 % (39.6-49.0); Lymphocytes % 0.7 % (15.3-44.8); MPV 10.2 fL (7.6-11.3); RBC Red Blood Cell Count 4.47 M/uL (4.33-5.43)
[2020-03-18 06:27] LABS: Albumin 2.5 g/dL (3.4-5.0); Bilirubin Total 2.1 mg/dL (0.2-1.0); C-Reactive Protein 56.9 mg/L (<3.00); Ferritin 2424.4 ng/mL (26-388); Magnesium 3.1 mg/dL (1.8-2.4); Potassium 3.6 mmol/L (3.5-5.1); Protein, Total 6.2 g/dL (6.4-8.2)
[2020-03-18] MEDS: INSULIN -REGULAR HUMAN 50 UNIT/0.5 ML ML SQ SCH ×4 (07:30→21:00)
[2020-03-18] MEDS ORDERED: LORazepam 2 MG/ML VIAL IV PRN (08:07)
[2020-03-18] MEDS: FAMOTIDINE 20 MG TAB PO SCH ×2 (09:00→20:46)
[2020-03-18] MEDS: VANCOMYCIN 1.5 GM in NA CHLORIDE 0.9% 500 ML IVPB SCH (09:03)
[2020-03-18] MEDS: CEFEPIME/SWI 1gm 10 ML IV SCH (09:04)
[2020-03-18] MEDS: THIAMINE HCL 100 MG TABLET PO SCH (09:04)
[2020-03-18] MEDS: FLUCONAZOLE 100 MG TAB PO SCH (09:04)
[2020-03-18] MEDS: VITAMIN D 1000 UNIT TAB PO SCH (09:04)
[2020-03-18] MEDS: LACTOBACILLUS/ACIDOPHILUS TAB PO SCH ×3 (09:04→20:46)
[2020-03-18] MEDS: ASCORBIC ACID 500 MG TABLET PO SCH ×3 (09:04→20:46)
[2020-03-18 10:24] LABS: Blood Morphology Comment NOT SEEN (NOT SEEN); Platelet Estimate DECR
--- NOTE | 2020-03-18 11:21 | P.PN ---
Subjective Date of Service: 03/18/20 Primary Care Provider: Blake Chief Complaint: Respiratory failure Not doing well still requiring high concentrations of oxygen platelet count is on mildly elevated white count is elevated again Review of Systems General: Malaise Respiratory: Shortness of Breath Physical Examination - Vital Signs Temperature: 97.3 F Blood Pressure: 163/71 Pulse: 78 Respirations: 23 Pulse Ox (%): 84 - Physical Exam General: Alert, Moderate distress Respiratory: Crackles/rales Cardiovascular: No edema, Regular rate/rhythm - Studies Medications List Reviewed: Yes Assessment & Plan - Problems (Diagnosis) (1) Pneumonia due to COVID-19 virus Current Visit: Yes Status: Acute Plan: Respiratory failure no change in patient's condition is an very apprehensive use Ativan IV q.4 hr p.r.n. change to meropenem continue with vancomycin his platelet count is a little better poly resume Eliquis tomorrow of his platelet count improves blood pressure elevated start on some Lasix and spironolactone
[2020-03-18] MEDS: SPIRONOLACTONE 25 MG TABLET PO SCH (12:26)
[2020-03-18] MEDS: FUROSEMIDE 20 MG/ 2ML VIAL IV SCH (12:26)
[2020-03-18] MEDS ORDERED: HALOPERIDOL LACT 5 MG/ML INJ IV ONE (13:37)
[2020-03-18] MEDS ORDERED: Meropenem 1000 MG/VIAL IV SCH (17:00)
[2020-03-18] MEDS: INSULIN GLARGINE 100 UNITS/ML SQ SCH (17:00)
[2020-03-18] MEDS: Meropenem 1,000 MG in NA CHLORIDE 0.9% 100 ML IV SCH (17:34)
[2020-03-18] MEDS: MELATONIN 3 MG TABLET PO SCH (21:00)
[2020-03-18] MEDS ORDERED: MELATONIN 5 MG TABLET PO ONE (21:06)
[2020-03-18] MEDS ORDERED: RSI MEDICATION KIT IV ONE (22:43)
[2020-03-18] MEDS ORDERED: propofoL 1,000 MG/100 ML VIAL IV ONE (22:58)
[2020-03-18] MEDS ORDERED: FENTANYL CITR 100 MCG/2 ML ONE (23:22)
[2020-03-18] MEDS ORDERED: MIDAZOLAM HCL 2 MG/2 ML INJ ONE (23:22)
[2020-03-18] MEDS ORDERED: NA CHLORIDE 0.9% 250 ML IV PRN (23:33)
[2020-03-18] MEDS: LORazepam 2 MG/ML VIAL IV PRN (23:45)
[2020-03-18] MEDS: HALOPERIDOL LACT 5 MG/ML INJ IV PRN (23:50)
--- NOTE | 2020-03-18 23:55 | P.PN ---
Date of Service: 03/18/20 Was called by nursing staff and notified the patient's respiratory status was declining. Patient was on BiPAP with high pressures at 100% FiO2, patient was becoming significantly tachypneic with respiratory rate in the 30s and hypoxic dipping down into the low 80s in the high 70s at times. Patient with significant accessory muscle use, was clearly tiring out. was at bedside. Hospitalist attending in international marketing intern were both contacted regarding patient's respiratory status, recommendation was made for intubation due to respiratory distress refractory to maximum noninvasive therapy. at bedside, patient awake alert oriented x3, this was discussed with them at length, both were upset but amendable to intubation and ventilator. ED MD was contacted for intubation, procedure was performed with 1st pass successful intubation, patient tolerated procedure relatively well given his respiratory status. Patient placed on ventilator. I performed femoral central line placement to the right femoral vein. Consent was obtained via patient's , risk of procedure were detailed, patient's consents. Right femoral vein was cannulated with triple-lumen central line catheter with nonpulsatile dark blood return, flushes easily. Patient placed on ventilator protocol and restraints as needed. Discussed at length with the that his condition is critical but there is still hope. Will discuss further with pulmonology and hospitalist attending.
[2020-03-19] MEDS: NA CHLORIDE 0.9% 1,000 ML ONE ×2 (00:15→02:58)
[2020-03-19] MEDS ORDERED: FENTANYL CITR 100 MCG/2 ML IV ONE (00:50)
[2020-03-19] MEDS: propofoL 1,000 MG/100 ML VIAL IV PRN ×5 (02:11→21:17)
[2020-03-19] MEDS: METHYLPREDNISOLONE 125 MG INJ IV SCH ×3 (02:14→16:51)
[2020-03-19] MEDS: Meropenem 1,000 MG in NA CHLORIDE 0.9% 100 ML IV SCH ×3 (02:14→16:51)
[2020-03-19 02:25] LABS: Blood Gas Oxyhemoglobin 79.1 % (94-97); Blood O2 Saturation 80.9 % (92-98.5)
[2020-03-19] MEDS: VANCOMYCIN 1.5 GM in NA CHLORIDE 0.9% 500 ML IVPB SCH ×2 (03:00→19:23)
[2020-03-19] MEDS: LORazepam 2 MG/ML VIAL IV PRN (03:20)
[2020-03-19] MEDS: NOREPINEPHRINE 4 MG in D5W 250 ML IV PRN ×2 (04:26→15:08)
[2020-03-19] MEDS ORDERED: NOREPINEPHRINE 4mg/D5W 250mL 4 MG/250 ML BAG IV ONE (04:38)
[2020-03-19 05:57] LABS: Arterial Blood Carboxyhemoglob 1.2 % (0-1.5); Blood Gas Oxyhemoglobin 70.8 % (94-97); Blood O2 Saturation 72.6 % (92-98.5)
[2020-03-19] MEDS: LEVOTHYROXINE SOD 0.1 MG TAB PO SCH (06:00)
[2020-03-19 07:16] LABS: Bilirubin Total 1.6 mg/dL (0.2-1.0); Potassium 3.8 mmol/L (3.5-5.1); Protein, Total 5.2 g/dL (6.4-8.2)
[2020-03-19 07:25] LABS: C-Reactive Protein 77.1 mg/L (<3.00); Ferritin 1949.5 ng/mL (26-388)
[2020-03-19] MEDS: INSULIN -REGULAR HUMAN 50 UNIT/0.5 ML ML SQ SCH ×3 (07:30→17:08)
[2020-03-19] MEDS ORDERED: INSULIN -REGULAR HUMAN 50 UNIT/0.5 ML ML SQ SCH (07:45)
[2020-03-19] MEDS: VITAMIN D 1000 UNIT TAB PO SCH (09:00)
[2020-03-19] MEDS: FLUCONAZOLE 100 MG TAB PO SCH (09:00)
[2020-03-19] MEDS: LACTOBACILLUS/ACIDOPHILUS TAB PO SCH ×3 (09:00→23:45)
[2020-03-19] MEDS: ASCORBIC ACID 500 MG TABLET PO SCH ×3 (09:00→21:00)
[2020-03-19] MEDS: SPIRONOLACTONE 25 MG TABLET PO SCH (09:00)
[2020-03-19] MEDS: FUROSEMIDE 20 MG/ 2ML VIAL IV SCH (09:00)
[2020-03-19] MEDS: THIAMINE HCL 100 MG TABLET PO SCH (09:00)
[2020-03-19] MEDS: CISATRACURIUM BESYLATE 40 MG in NA CHLORIDE 0.9% 80 ML IV PRN ×2 (09:10→14:09)
--- NOTE | 2020-03-19 10:39 | RAD REPORT ---
EXAM DESCRIPTION: X-ray single view chest. CLINICAL HISTORY: 74 years Male, S/P Intubation COMPARISON: CT chest performed on 03/08/2020 and prior chest x-ray reports from 03/17/2020 and 03/15. The prior chest x-rays were not available for review. TECHNIQUE: Single portable x-ray view of the chest performed on 03/18/2020 at 11:42 PM FINDINGS: The lungs are well-expanded. There is moderate to severe diffuse bilateral airspace diseas e most compatible with multifocal pneumonia. There is no evidence of a pneumothorax. The cardiac silhouette is normal in size and configuration. The mediastinal contours are normal. No acute osseous abnormality is identified. No acute soft tissue abnormalities are seen. Lines and tubes: The endotracheal tube tip terminates below the clavicular heads and above the sara na. The tip of the feeding tube projects over the region of the GE junction. IMPRESSION: 1. Ongoing moderate to severe diffuse bilateral airspace disease most compatible with mu ltifocal pneumonia. 2. Endotracheal tube tip terminates below the clavicular heads and above the david. 3. The tip of the feeding tube projects over the region of the GE junction. Electronically signed by: Elise Renteria DO 03/19/2020 12:08 AM COUNTY COMMISSIONER Due to temporary technical issues with the PACS/Fluency reporting system, reports are being signed by the in house radiologist without review as a courtesy to ensure prompt reporting. The interpreting r adiologist is fully responsible for the content of the report.
--- NOTE | 2020-03-19 10:42 | RAD REPORT ---
EXAM DESCRIPTION: Abdomen 1 View (KUB) CLINICAL HISTORY: Dobhoff repositioned COMPARISON: 03/18/2020 FINDINGS: Feeding tube is been advanced and is now curled in the stomach. Leads overlie the chest. B ilateral basilar airspace opacities. No definite free intraperitoneal air. No definite dilated loops of bowel. Right femoral approach central venous catheter. Atherosclerotic vascular calcification. Kathy ds overlie the chest. IMPRESSION: Feeding tube has been advanced and is now curled in the stomach. The tip of the tube bennett s not proceed into the duodenum. Electronically signed by: Anjum Solomon 03/19/2020 2:33 AM BACK HOE OPERATOR Due to temporary technical issues with the PACS/Fluency reporting system, reports are being signed by the in house radiologist without review as a courtesy to ensure prompt reporting. The interpreting r adiologist is fully responsible for the content of the report.
--- NOTE | 2020-03-19 10:56 | RAD REPORT ---
EXAM DESCRIPTION: Abdomen 1 View (KUB) CLINICAL HISTORY: Dobhoff COMPARISON: None. TECHNIQUE: XR ABDOMEN 1 VIEW (KUB) 03/18/2020 10:55 PM [employer] BI CONSULTANT FINDINGS: Bowel gas pattern is nonspecific. There are no abnormal radiopaque foreign bodies or abnor mal calcifications. Osseous structures are grossly unremarkable. Feeding tube tip is in the upper sto mach. There is a right femoral line with the tip in the right common femoral vein. IMPRESSION: Feeding tube tip in the upper stomach. Electronically signed by: Watson Gardner MD 03/19/2020 12:20 AM [employer] BI CONSULTANT Due to temporary technical issues with the PACS/Fluency reporting system, reports are being signed by the in house radiologist without review as a courtesy to ensure prompt reporting. The interpreting r adiologist is fully responsible for the content of the report.
[2020-03-19] MEDS ORDERED: FLUCONAZOLE 100mg IVPB 100 MG/50 ML BAG IV SCH (11:00)
[2020-03-19] MEDS: FAMOTIDINE 20 MG/2 ML VIAL IV SCH ×2 (11:06→21:00)
--- NOTE | 2020-03-19 11:31 | RAD REPORT ---
EXAM DESCRIPTION: Abdomen 1 View (KUB) CLINICAL HISTORY: Dobhoff repositioned COMPARISON: 03/19/2020 FINDINGS: Feeding tube remain curled in the stomach. Leads overlie the chest. Bilateral basilar airs pace opacities. No definite free intraperitoneal air. No definite dilated loops of bowel. Right femor al approach central venous catheter. Atherosclerotic vascular calcification. Leads overlie the chest. IMPRESSION: Feeding tube remains curled in the stomach. The tip of the tube does not proceed into th e duodenum. Electronically signed by: Anjum Solomon 03/19/2020 4:55 AM TEAMCENTER CONSULTANT Due to temporary technical issues with the PACS/Fluency reporting system, reports are being signed by the in house radiologist without review as a courtesy to ensure prompt reporting. The interpreting r adiologist is fully responsible for the content of the report.
--- NOTE | 2020-03-19 11:41 | P.PN ---
Subjective Date of Service: 03/19/20 Primary Care Provider: Blake Chief Complaint: Respiratory failure Patient was intubated last night currently on pressure control ventilation on propofol still tachypneic Review of Systems is unable to be obtained Physical Examination - Vital Signs Temperature: 97.6 F Blood Pressure: 124/49 Pulse: 107 Respirations: 23 Pulse Ox (%): 94 - Physical Exam General: Unresponsive Respiratory: Clear to auscultation bilaterally, Diminished Cardiovascular: No edema, Regular rate/rhythm - Studies Medications List Reviewed: Yes Assessment & Plan - Problems (Diagnosis) (1) Pneumonia due to COVID-19 virus Current Visit: Yes Status: Acute Plan: Respiratory failure from santamaria virus I have ordered lab work chest x-ray ferritin level is slightly lower labs reviewed mild hypernatremia
[2020-03-19] MEDS: HALOPERIDOL LACT 5 MG/ML INJ IV PRN (11:53)
[2020-03-19 12:30] LABS: Absolute Lymphocytes (CBC) 0.3 K/uL (0.7-4.9); Basophils % 0.2 % (0-1.3); Hematocrit 36.1 % (39.6-49.0); MPV 10.3 fL (7.6-11.3)
[2020-03-19 13:32] LABS: Blood Morphology Comment NOTED (NOT SEEN); Platelet Estimate DECR
[2020-03-19] MEDS: VITAL AF 1,000 ML BOT RTH SCH (16:01)
[2020-03-19 16:45] LABS: Absolute Lymphocytes (CBC) 0.1 K/uL (0.7-4.9); Basophils % 0.3 % (0-1.3); Hematocrit 36.9 % (39.6-49.0); Lymphocytes % 0.3 % (15.3-44.8); MPV 10.2 fL (7.6-11.3); RBC Red Blood Cell Count 3.93 M/uL (4.33-5.43)
--- NOTE | 2020-03-19 16:50 | RAD REPORT ---
EXAM DESCRIPTION: RAD - Chest Single View - 03/19/2020 4:06 pm CLINICAL HISTORY: vented, respiratory distress COMPARISON: Portable March 18, portable March 17 TECHNIQUE: AP portable chest image was obtained 03/19/2020 4:06 pm . FINDINGS: Endotracheal tube is T4 level just above the aortic arch. Feeding tube extends below the d iaphragm off the field of view. Extensive bilateral airspace opacification is present showing improvement from the March 18 study. Substantial opacification remains. Heart and vasculature are normal. No measurable pleural effusion and no pneumothorax. No acute bony abnormality seen. No acute aortic findings suspected. IMPRESSION: Extensive bilateral airspace opacification showing improvement from March 18.
[2020-03-19 16:54] LABS: Protime INR 1.23
[2020-03-19] MEDS: INSULIN GLARGINE 100 UNITS/ML SQ SCH (17:08)
[2020-03-19 17:45] LABS: Albumin 2.2 g/dL (3.4-5.0); Bilirubin Total 0.9 mg/dL (0.2-1.0); Magnesium 3.4 mg/dL (1.8-2.4); Phosphorus 8.3 mg/dL (2.5-4.9); Potassium 4.7 mmol/L (3.5-5.1); Protein, Total 5.7 g/dL (6.4-8.2)
--- NOTE | 2020-03-19 17:47 | P.PN ---
Date of Service: 03/19/20 Subjective Date of Service: 03/19/20 Patient is on mechanical ventilation. On vasopressor support as well. Spoke with family at length regarding his current status. Prognosis remains poor Review of Systems 10-point ROS is otherwise unremarkable Physical Examination - Vital Signs reviewed - Physical Exam General: Intubated and sedated Respiratory: Diminished but clear Cardiovascular: Regular rate and rhythm without murmur Gastrointestinal: Soft and benign, No tenderness Musculoskeletal: No clubbing, No swelling, No tenderness Neurological: Intubated and sedated at this time Assessment & Plan - Problems (Diagnosis) (1) Hypoxic Respiratory Failure Current Visit: Yes Status: Acute (2) Pneumonia due to COVID-19 virus Current Visit: Yes Status: Acute (3) Thrombocytopenia Current Visit: Yes Status: Acute (4) Elevated D-dimer; possible DIC Current Visit: Yes Status: Acute (5) Leukocytosis Current Visit: Yes Status: Acute - Plan 1. Continue with IV antibiotics; finished Remdesivir a week ago 2. Monitor inflammatory markers 3. Repeat chest x-ray as symptoms are progressively worsening 4. O2 per protocol 5. Pulmonary consultation appreciated 6. Continue with albuterol inhaler therapy; IV dexamethasone; zinc and vitamin-C 7. O2 per protocol 8. Monitor LFTs 9. Repeat labs including D-dimer, ferritin, and CRP and LFTs 10. GI and DVT prophylaxis
[2020-03-19 17:53] LABS: Troponin I 0.73 ng/mL (0.0-0.045)
[2020-03-19 18:10] LABS: Arterial Blood Carboxyhemoglob 0.8 % (0-1.5); Blood Gas Oxyhemoglobin 92.2 % (94-97); Blood O2 Saturation 94.4 % (92-98.5)
[2020-03-19] MEDS ORDERED: SUCCINYLCHOLINE 20 MG/ML (10 ML) IV ONE (18:22)
[2020-03-19] MEDS ORDERED: ETOMIDATE 20 MG/10 ML VIAL IV ONE (18:22)
--- NOTE | 2020-03-19 18:30 | CON ---
Date of Consultation: 03/19/2020 Reason For Consultation: Hypernatremia. History Of Present Illness: Mr. 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 He presented to [facility] about a week ago complai petros of shortness of breath associated with COVID-19 pneumonia. The patient has been treated with [facility] conservative measures and has unfortunately needed to be intubated last night because of worsen ing respiratory status and mental status. at bedside and much of the history was obtained from speaking to his . Past Medical History: Significant for history of nephrotic syndrome, hyperlipidemia, hypothyroidism, and left knee medial cartilage surgery. Social History: No history of smoking, alcohol, or drug use reported. He is living at home before t his admission. Home Medications: Only atorvastatin and levothyroxine. Allergies: HE IS ALLERGIC TO NSAID AND COUMADIN. Family History: Noncontributory. Review of Systems: Unable to be obtained. Physical Examination: Vital Signs: Showing temperature of 97.5, pulse rate of 93, respiratory rate of 25, and blood pressu re 93/52. General: He is intubated and sedated. HEENT: Shows atraumatic head. Lungs: Auscultation of lungs revealed bilateral equal air entry. Abdomen: Soft and nontender. NG tube in place. Extremities: Lower extremity showed no evidence of edema. Current Medications: Include Tylenol p.r.n., vitamin C, benzonatate p.r.n., Glucerna, levothyroxine, lorazepam, melatonin, meropenem, Solu-Medrol, midazolam, spironolactone 25 mg a day, vancomycin. Laboratory Data: At this time showing sodium of 149, potassium of 3.8, chloride of 115, bicarb of 27 , BUN of 44, and creatinine of 0.9. A1c was 6 and LFTs are showing mildly elevated AST and procalcit onin was noted to be 1.1 at the time of admission, repeat level is still pending at this time. Impression: 1.Hypernatremia secondary to decreased free water intake from respiratory failure. The patient is c urrently intubated and he is getting tube feeds. We will go ahead and put him on free water 200 cc e very 4 hours and monitor him closely. 2.Acute respiratory failure secondary to COVID-90 pneumonia. The patient is being [facility] and is being treated per COVID protocol. 3.Hypotension secondary to sedation. The patient is on low-dose Levophed at this time. Continue to wean that off and give intermittent boluses of IV fluids as tolerated. 4.History of nephrotic syndrome. We will request a protein creatinine ratio for further evaluation, but his nephrotic syndrome seems to be quiescent at this time. Plan: Overall, the patient is doing better; however, for concern about his respiratory status, endy nue to wean ventilator as tolerated and wean off oxygen as tolerated. We will start him on free wate r supplementation and follow up closely. VV/MODL Voice ID: [id number] Report ID: [id number]
[2020-03-19 18:40] LABS: Blood Gas Oxyhemoglobin 84.7 % (94-97); Blood O2 Saturation 86.8 % (92-98.5)
[2020-03-19] MEDS ORDERED: MELATONIN 5 MG TABLET PO ONE (22:11)
[2020-03-19] MEDS: MELATONIN 3 MG TABLET PO SCH (23:45)
[2020-03-20] MEDS: Meropenem 1,000 MG in NA CHLORIDE 0.9% 100 ML IV SCH ×3 (00:05→17:40)
[2020-03-20] MEDS: INSULIN -REGULAR HUMAN 50 UNIT/0.5 ML ML SQ SCH ×4 (00:05→17:40)
[2020-03-20] MEDS: METHYLPREDNISOLONE 125 MG INJ IV SCH ×3 (00:06→17:42)
[2020-03-20] MEDS: CISATRACURIUM BESYLATE 40 MG in NA CHLORIDE 0.9% 80 ML IV PRN ×2 (03:12→14:33)
[2020-03-20] MEDS: propofoL 1,000 MG/100 ML VIAL IV PRN ×4 (03:16→20:51)
[2020-03-20 05:20] LABS: Absolute Lymphocytes (CBC) 0.2 K/uL (0.7-4.9); Basophils % 0.3 % (0-1.3); Hematocrit 32.4 % (39.6-49.0); Lymphocytes % 0.9 % (15.3-44.8); MPV 10.5 fL (7.6-11.3); RBC Red Blood Cell Count 3.49 M/uL (4.33-5.43)
[2020-03-20 05:27] LABS: Urine Appearance CLOUDY; Urine Bilirubin NEGATIVE (NEG); Urine Blood 3+ (NEG); Urine Color YELLOW; Urine Glucose TRACE (NEG); Urine Protein 1+ (NEG); Urine Specific Gravity >=1.030 (1.005-1.030); Urine Urobilinogen 0.2 mg/dL (0.2-1.0); Urine pH 5.5 (5.0-7.0)
[2020-03-20 05:40] LABS: Albumin 1.9 g/dL (3.4-5.0); Bilirubin Total 0.8 mg/dL (0.2-1.0); Potassium 3.9 mmol/L (3.5-5.1); Protein, Total 5.1 g/dL (6.4-8.2)
[2020-03-20 05:42] LABS: Urine Bacteria 20-50 /HPF (NONE SEEN); Urine Coarse Granular Casts 0-5 /LPF (NONE SEEN); Urine RBC >50 /HPF (NONE SEEN); Urine Urothelial Cells <5 /HPF (NONE SEEN)
[2020-03-20] MEDS: LEVOTHYROXINE SOD 0.1 MG TAB PO SCH (06:36)
[2020-03-20] MEDS ORDERED: SODIUM CHLORIDE 0.9% 10ML INJ IV PRN (07:48)
[2020-03-20] MEDS: VITAMIN D 1000 UNIT TAB PO SCH (07:56)
[2020-03-20] MEDS: LACTOBACILLUS/ACIDOPHILUS TAB PO SCH ×3 (07:57→19:45)
[2020-03-20] MEDS: THIAMINE HCL 100 MG TABLET PO SCH (07:57)
[2020-03-20] MEDS: ASCORBIC ACID 500 MG TABLET PO SCH ×3 (07:57→19:46)
[2020-03-20] MEDS: FUROSEMIDE 20 MG/ 2ML VIAL IV SCH (07:58)
--- NOTE | 2020-03-20 08:12 | RAD REPORT ---
EXAM DESCRIPTION: RAD - Chest Single View - 03/20/2020 7:10 am CLINICAL HISTORY: Respiratory failure COMPARISON: March 19 portable TECHNIQUE: AP portable chest image was obtained 03/20/2020 7:10 am . FINDINGS: Endotracheal tube is in good position with the tip mid aortic arch level. Feeding tube ext ends below the diaphragm, off the field of view. Extensive bilateral alveolar opacities are present not substantially different from the comparison. P rogression of disease is not suspected. Heart and vasculature are normal. No measurable pleural effusion and no pneumothorax. No acute bony abnormality seen. No acute aortic findings suspected. IMPRESSION: Bilateral airspace opacification showing no improvement since March 19. Feeding tube and ET tube in good position.
[2020-03-20] MEDS: FAMOTIDINE 20 MG/2 ML VIAL IV SCH ×2 (09:00→19:46)
[2020-03-20] MEDS ORDERED: PANTOPRAZOLE 40 MG INJ IVP SCH (09:00)
[2020-03-20 09:16] LABS: Basophilic Stippling 1+; Blood Morphology Comment NOTED (NOT SEEN); Platelet Estimate DECR
--- NOTE | 2020-03-20 11:40 | P.PN ---
Subjective Date of Service: 03/20/20 Primary Care Provider: Blake Chief Complaint: Respiratory failure No change oxygen requirements have declined a little bit patient is thrombocytopenic on steroids hypernatremic white count declining Review of Systems is unable to be obtained Physical Examination - Vital Signs Temperature: 97.0 F Blood Pressure: 111/54 Pulse: 76 Respirations: 15 Pulse Ox (%): 90 - Physical Exam General: Unresponsive Respiratory: Crackles/rales Cardiovascular: No edema, Normal S1 S2 - Studies Medications List Reviewed: Yes Assessment & Plan - Problems (Diagnosis) (1) Pneumonia due to COVID-19 virus Current Visit: Yes Status: Acute Plan: Respiratory failure D-dimer elevated LDH is also elevated probably has underlying DIC I have stopped Diflucan and vancomycin due to thrombocytopenia chest x-ray no change blood pressure stable still on significant amount of oxygen although is decreased to 70% prognosis poor
--- NOTE | 2020-03-20 14:37 | PN ---
Date of Progress Note: 03/20/2020 Subjective: The patient is seen at the bedside. Remains intubated, 75% FiO2 with a PEEP of 10. Sat urations remained in the mid 80s. The patient was prone earlier with saturations in the 90s. Alfredo catheter remains in place. No other acute overnight events reported. The patient was initiated on 2 00 mL of free water every 4 hours. Objective: Vital Signs: Blood pressure 111/54, pulse 76, afebrile. Input and output 1836 in and 95 0 out. General: No acute distress. Intubated, sedated. Laboratory Data: Sodium 149, potassium 3.6, chloride 116, CO2 of 29, BUN 48, creatinine 1.05, glucos e 184, calcium 7.4. Medications: Remainder of medications were reviewed. Impression: 1.Hypernatremia, likely in setting of free water depletion. 2.History of nephrotic syndrome. 3.Acute hypoxemic respiratory failure. 4.COVID-19 pneumonia. Plan: The patient's free water has been increased to 250 mL every 4 hours. We will reorder the burke ent's urine protein creatinine ratio at this time. Continue pulmonary management per Pulmonary team. SE/MODL Voice ID: [id number] Report ID: [id number]
[2020-03-20 16:46] LABS: C-Reactive Protein 78.4 mg/L (<3.00); Ferritin 3365.1 ng/mL (26-388)
[2020-03-20 17:10] LABS: Urine Protein/Creatinine Ratio 0.67 ratio (<0.15)
[2020-03-20] MEDS: INSULIN GLARGINE 100 UNITS/ML SQ SCH (17:40)
[2020-03-20] MEDS: MELATONIN 3 MG TABLET PO SCH (19:46)
[2020-03-20] MEDS ORDERED: MELATONIN 5 MG TABLET PO ONE (19:58)
[2020-03-21] MEDS: INSULIN -REGULAR HUMAN 50 UNIT/0.5 ML ML SQ SCH ×4 (00:10→17:27)
[2020-03-21] MEDS: Meropenem 1,000 MG in NA CHLORIDE 0.9% 100 ML IV SCH ×3 (00:11→17:27)
[2020-03-21] MEDS: METHYLPREDNISOLONE 125 MG INJ IV SCH ×3 (00:11→17:28)
[2020-03-21] MEDS: CISATRACURIUM BESYLATE 40 MG in NA CHLORIDE 0.9% 80 ML IV PRN ×3 (02:28→23:06)
[2020-03-21 05:11] LABS: Absolute Lymphocytes (CBC) 0.2 K/uL (0.7-4.9); Basophils % 0.2 % (0-1.3); Lymphocytes % 0.7 % (15.3-44.8); MPV 11.7 fL (7.6-11.3); RBC Red Blood Cell Count 3.68 M/uL (4.33-5.43)
[2020-03-21 05:41] LABS: Bilirubin Total 0.8 mg/dL (0.2-1.0); C-Reactive Protein 56.6 mg/L (<3.00); Ferritin 2922.1 ng/mL (26-388); Magnesium 3.4 mg/dL (1.8-2.4); Phosphorus 2.9 mg/dL (2.5-4.9); Potassium 3.9 mmol/L (3.5-5.1); Protein, Total 5.2 g/dL (6.4-8.2)
[2020-03-21 05:52] LABS: Basophilic Stippling 1+; Blood Morphology Comment NOTED (NOT SEEN); Platelet Estimate DECR; Polychromasia SLIGHT
[2020-03-21] MEDS: LEVOTHYROXINE SOD 0.1 MG TAB PO SCH (06:09)
--- NOTE | 2020-03-21 07:01 | P.PN ---
Subjective Date of Service: 03/20/20 Patient with no significant changes. Inflammatory markers significantly elevated. Chest x-ray with no significant changes. We have been able to wean him off the Levophed. Clinically patient appears to be stabilizing a little bit. Continue monitoring him very closely. Review of Systems is unable to be obtained Physical Examination - Vital Signs Temperature: 96.9 F Blood Pressure: 132/46 Pulse: 81 Respirations: 26 Pulse Ox (%): 90 - Physical Exam General: Other (Intubated and sedated) Respiratory: Diminished, Crackles/rales, Expiratory wheezes Cardiovascular: Regular rate/rhythm, No murmurs Gastrointestinal: Normal bowel sounds, Soft and benign, Non-distended, No rebound, No guarding Musculoskeletal: No clubbing - Studies Medications List Reviewed: Yes Assessment & Plan - Problems (Diagnosis) (1) Hypoxia Current Visit: Yes Status: Acute (2) Pneumonia due to COVID-19 virus Current Visit: Yes Status: Acute (3) Thrombocytopenia Current Visit: Yes Status: Acute (4) Leukocytosis Current Visit: Yes Status: Acute (5) Renal insufficiency Current Visit: Yes Status: Acute (6) History of minimal change disease Current Visit: Yes Status: Acute - Plan 1. Continue with IV antibiotics and IV steroids 2. Finished Remdesivir 3. Repeat chest x-ray 4. Ventilation management per Pulmonary 5. Pulmonary consultation appreciated 6. Continue with albuterol inhaler therapy; IV steroids; zinc and vitamin-C 7. Monitor renal function closely 8. Monitor inflammatory markers 9. GI and DVT prophylaxis Discharge Plan: Home Plan to discharge in: Greater than 2 days - Advance Directives Does patient have a Living Will: No Does patient have a Durable POA for Healthcare: No - Code Status/Comfort Care Code Status: Full Code Critical Care: No Time Spent Managing PTS Care (In Minutes): 35
--- NOTE | 2020-03-21 07:50 | RAD REPORT ---
EXAM DESCRIPTION: Latanya Single View03/21/2020 5:52 am CLINICAL HISTORY: Respiratory failure COMPARISON: March 20, 2020 FINDINGS: Moderate bilateral pulmonary opacities persist. Heart remains enlarged. Feeding and endot lui tubes in place IMPRESSION: No significant change
[2020-03-21] MEDS: propofoL 1,000 MG/100 ML VIAL IV PRN ×3 (08:53→18:38)
[2020-03-21] MEDS: VITAMIN D 1000 UNIT TAB PO SCH (09:00)
[2020-03-21] MEDS: THIAMINE HCL 100 MG TABLET PO SCH (09:00)
[2020-03-21] MEDS: FUROSEMIDE 20 MG/ 2ML VIAL IV SCH (09:01)
[2020-03-21] MEDS: FAMOTIDINE 20 MG/2 ML VIAL IV SCH ×2 (09:01→20:49)
[2020-03-21] MEDS: LACTOBACILLUS/ACIDOPHILUS TAB PO SCH ×3 (09:01→20:49)
[2020-03-21] MEDS: ASCORBIC ACID 500 MG TABLET PO SCH ×3 (09:01→20:49)
[2020-03-21] MEDS ORDERED: D5 0.45 NS 1,000 ML IV SCH (10:00)
--- NOTE | 2020-03-21 12:00 | P.PN ---
Subjective Date of Service: 03/21/20 Primary Care Provider: Blake Chief Complaint: Respiratory failure Patient is hemodynamically stable oxygen requirements a been decreased to 70% inflammatory parameters improving Review of Systems is unable to be obtained Physical Examination - Vital Signs Temperature: 96.9 F Blood Pressure: 132/49 Pulse: 103 Respirations: 30 Pulse Ox (%): 90 - Physical Exam General: Unresponsive Respiratory: Clear to auscultation bilaterally - Studies Medications List Reviewed: Yes Assessment & Plan - Problems (Diagnosis) (1) Pneumonia due to COVID-19 virus Current Visit: Yes Status: Acute Plan: Respiratory failure at count is improving a little pneumatic compression stockings ferritin has improved chest x-ray no significant worsening ABG shows permissive hypercapnia mild hypernatremia no change continue to monitor
--- NOTE | 2020-03-21 13:50 | PN ---
Date of Progress Note: 03/21/2020 Subjective: The patient is seen at the bedside. Remains intubated. No significant changes in oxyge n requirements. Objective: Vital Signs: Blood pressure is 132/49, heart rate 103, temperature 96.9. Input and outp ut recorded 2290 in with 700 out. The patient is receiving 250 mL q.4 hours of free water. General: Intubated and sedated. No acute distress. Remainder of physical exam noting reviewed. Laboratory Data: Sodium 147, potassium 3.9, chloride 111, CO2 32, BUN 51, creatinine 1.01, glucose 2 56, calcium 8, magnesium is 3.4, LDH is 814. Inflammatory markers are elevated, however, improving. Medications: Current medications noted. There are not any magnesium containing supplements noted at this time. He is n.p.o. He is receiving Glucerna. Impression: 1.Hypernatremia in the setting of free water depletion. 2.Hypermagnesemia. 3.History of nephrotic syndrome. 4.Acute hypoxemic respiratory failure. 5.COVID-19 pneumonia. Plan: The patient's free water will be increased to 400 mL every 4 hours. We will monitor for impro vement hypermagnesemia with improved free water balance. The patient does have nonnephrotic range pr oteinuria by quantification. Continue pulmonary management per Pulmonary team. SE/MODL Voice ID: [id number] Report ID: [id number]
[2020-03-21] MEDS ORDERED: METOPROLOL TARTRATE 5 MG/5 ML INJ IV STA (15:05)
[2020-03-21] MEDS ORDERED: METOPROLOL TARTRATE 5 MG/5 ML INJ IV ONE (15:16)
[2020-03-21] MEDS: AMIODARONE HCL 900 MG in Dextrose 5%-Water 482 ML IV SCH (15:30)
--- NOTE | 2020-03-21 15:42 | P.PN ---
Subjective Date of Service: 03/21/20 Patient went into atrial fibrillation w/ RVR; s/p lopressor; rate controlled; on Amiodarone drip; monitor LFTs; patient's inflammatory markers are stable. Continuing high-dose steroids. Continue BiPAP support & prone positioning. Spoke to son at length regarding multiple questions. He also wanted to know if it his father could get transferred to a [facility] facility. I contacted [facility] and they are filled to capacity at all their facilities. They do not have any ICU beds to except any patient's. Review of Systems is unable to be obtained Physical Examination - Vital Signs Temperature: 96.9 F Blood Pressure: 99/38 Pulse: 69 Respirations: 30 Pulse Ox (%): 88 - Physical Exam General: Other (intubated and sedated; on paralytics) Neck: JVD not distended, No Thyromegaly Respiratory: Other (tacypneic) Cardiovascular: Irregular heart rate/rhythm Gastrointestinal: Normal bowel sounds, Soft and benign, Non-distended, No tenderness Musculoskeletal: No clubbing, Swelling Neurological: Other (Patient on paralytics) - Studies Medications List Reviewed: Yes Assessment & Plan - Problems (Diagnosis) (1) Acute respiratory failure due to COVID-19 Current Visit: Yes Status: Acute (2) Hypoxia Current Visit: Yes Status: Acute (3) Thrombocytopenia Current Visit: Yes Status: Acute (4) Leukocytosis Current Visit: Yes Status: Acute (5) Renal insufficiency Current Visit: Yes Status: Acute (6) History of minimal change disease Current Visit: Yes Status: Acute (7) Atrial fibrillation with rapid ventricular response Current Visit: Yes Status: Acute (8) Hypermagnesemia Current Visit: Yes Status: Acute - Plan 1. Continue with IV antibiotics and IV steroids; increase free water 2. Finished Remdesivir 3. Amiodarone drip; appreciate Cardiology assistance; monitor LFTs 4. Ventilation management per Pulmonary 5. Attempted transfer to [facility] facility but they are at capacity as are all of their facilities 6. Continue with albuterol inhaler therapy; 7. Monitor renal function closely 8. Monitor inflammatory markers & additional studies to monitor patient's clinical picture closely 9. GI and DVT prophylaxis Discharge Plan: LTAC Plan to discharge in: Greater than 2 days - Advance Directives Does patient have a Living Will: No Does patient have a Durable POA for Healthcare: No - Code Status/Comfort Care Code Status: Full Code Critical Care: Yes Time Spent Managing PTS Care (In Minutes): 45
[2020-03-21] MEDS: INSULIN GLARGINE 100 UNITS/ML SQ SCH (17:28)
[2020-03-21] MEDS: MELATONIN 3 MG TABLET PO SCH (20:49)
[2020-03-21] MEDS ORDERED: MELATONIN 5 MG TABLET PO ONE (21:02)
[2020-03-22] MEDS: INSULIN -REGULAR HUMAN 50 UNIT/0.5 ML ML SQ SCH ×4 (00:05→17:38)
[2020-03-22] MEDS: Meropenem 1,000 MG in NA CHLORIDE 0.9% 100 ML IV SCH ×3 (00:05→17:18)
[2020-03-22] MEDS: METHYLPREDNISOLONE 125 MG INJ IV SCH ×3 (00:06→17:38)
[2020-03-22 04:50] LABS: Absolute Lymphocytes (CBC) 0.1 K/uL (0.7-4.9); Basophils % 0.3 % (0-1.3); Hematocrit 32.4 % (39.6-49.0); Lymphocytes % 0.6 % (15.3-44.8); MPV 11.3 fL (7.6-11.3); RBC Red Blood Cell Count 3.51 M/uL (4.33-5.43)
[2020-03-22 05:47] LABS: Albumin 1.9 g/dL (3.4-5.0); Bilirubin Total 0.7 mg/dL (0.2-1.0); C-Reactive Protein 23.3 mg/L (<3.00); Ferritin 2905.7 ng/mL (26-388); Magnesium 3.3 mg/dL (1.8-2.4); Phosphorus 3.4 mg/dL (2.5-4.9); Potassium 4.2 mmol/L (3.5-5.1); Protein, Total 5.1 g/dL (6.4-8.2); Thyroid Stimulating Hormone 0.017 uIU/mL (0.360-3.740); Troponin I 0.25 ng/mL (0.0-0.045)
[2020-03-22] MEDS: LEVOTHYROXINE SOD 0.1 MG TAB PO SCH (06:14)
--- NOTE | 2020-03-22 08:45 | RAD REPORT ---
EXAM DESCRIPTION: RAD - Chest Single View - 03/22/2020 6:05 am CLINICAL HISTORY: pneumonia Chest pain. COMPARISON: Chest Single View dated 03/21/2020; Chest Single View dated 03/20/2020; Chest Single Vie w dated 03/19/2020; Abdomen 1 View (KUB) dated 03/19/2020 FINDINGS: Portable technique limits examination quality. Tip of the endotracheal tube is above the david. The enteric tube descends into the stomach. Bilater al pulmonary opacities appear stable since comparative study. Heart size is mildly enlarged.
[2020-03-22] MEDS: FUROSEMIDE 20 MG/ 2ML VIAL IV SCH (09:10)
[2020-03-22] MEDS: FAMOTIDINE 20 MG/2 ML VIAL IV SCH ×2 (09:10→19:48)
[2020-03-22] MEDS: VITAMIN D 1000 UNIT TAB PO SCH (09:11)
[2020-03-22] MEDS: ASCORBIC ACID 500 MG TABLET PO SCH ×3 (09:11→19:47)
[2020-03-22] MEDS: LACTOBACILLUS/ACIDOPHILUS TAB PO SCH ×3 (09:11→19:47)
[2020-03-22] MEDS: THIAMINE HCL 100 MG TABLET PO SCH (09:11)
[2020-03-22] MEDS: CISATRACURIUM BESYLATE 40 MG in NA CHLORIDE 0.9% 80 ML IV PRN (09:58)
[2020-03-22] MEDS: propofoL 1,000 MG/100 ML VIAL IV PRN ×3 (09:59→19:00)
--- NOTE | 2020-03-22 11:21 | P.PN ---
Subjective Date of Service: 03/22/20 Primary Care Provider: Blake Chief Complaint: Respiratory failure No change patient is currently on prone position ventilation with paralytic agents ferritin level has decreased slightly Review of Systems is unable to be obtained Physical Examination - Vital Signs Temperature: 96.7 F Blood Pressure: 127/57 Pulse: 86 Respirations: 30 Pulse Ox (%): 90 - Physical Exam General: Unresponsive - Studies Medications List Reviewed: Yes Assessment & Plan - Problems (Diagnosis) (1) Pneumonia due to COVID-19 virus Current Visit: Yes Status: Acute Plan: Respiratory failure increase peep 12-15 titrate O2 to sat of 88-90% white count elevated patient is thrombocytopenic patient is on meropenem Solu-Medrol patient went into AFib yesterday white count continues to remain elevated thrombocytopenic blood pressure stable on low-dose Lasix
[2020-03-22 11:36] LABS: Arterial Blood Carboxyhemoglob 1.4 % (0-1.5); Blood Gas Oxyhemoglobin 79.8 % (94-97); Blood O2 Saturation 82.1 % (92-98.5)
--- NOTE | 2020-03-22 13:13 | CON ---
Date of Consultation: 03/22/2020 Reason For Consultation: Atrial fibrillation with rapid ventricular response. History Of Present Illness: This is a 74-year-old male who was admitted with respiratory failure due to COVID-19 pneumonia, past history of hypertension, hypothyroidism, dyslipidemia, nephrotic syndrom e, who has been managed on the ventilator in ICU. He went into atrial fibrillation with rapid ventri cular response. Started on amiodarone. Heart rate now is in the mid 80s, but still in atrial fibril lation. The patient is not verbal due to being on the ventilator. Past Medical History: As outlined above in the HPI. Medications: Refer to reconciliation sheet for detailed list. Allergies: NSAIDS. Family History: No premature coronary artery disease or cancer. Social History: Does not smoke or drink. Does not use drugs. Review of Systems: All systems reviewed and they were negative except what mentioned in the HPI. Physical Examination: Vital Signs: Temperature is 97.6, pulse 85, breathing at 30, blood pressure 127/57, saturating 98%. This is an elderly male on the ventilator. Head and Neck: No JVD. No cervical lymphadenopathy. No sinus drip. Neck: Supple. Thyroid is not enlarged. Lungs: A few rhonchi bilaterally with crackles. Heart: Irregularly irregular. No extra sounds. Abdomen: Soft, nontender. Bowel sounds positive. No organomegaly. Extremities: No clubbing, cyanosis. Skin: No rashes. Neuro: On the ventilator, sedated. Lymph Nodes: No cervical lymphadenopathy. Investigations: Creatinine 1.06. Troponin is 0.25. Assessment And Recommendation: Atrial fibrillation with rapid ventricular response, likely due to th e acute illness. Agree with amiodarone load to continue on 0.5 mg/minute for the full 24-hour durati on and then switch to 200 mg through an NG tube, after that twice a day. Also use Lopressor 5 mg as needed intravenously p.r.n. for rate control and recommend full anticoagulation if there is no contra indication, using Lovenox 1 mg/kg subcu q.12 hours. Please obtain an echocardiogram. SR/MODL Voice ID: [id number] Report ID: [id number]
[2020-03-22] MEDS: AMIODARONE HCL 900 MG in Dextrose 5%-Water 482 ML IV SCH (15:16)
[2020-03-22] MEDS: INSULIN GLARGINE 100 UNITS/ML SQ SCH (17:38)
[2020-03-22] MEDS: FENTANYL CITR 100 MCG/2 ML IV PRN (18:28)
[2020-03-22] MEDS ORDERED: ALBUMIN HUMAN 25% 100 ML IV ONE (18:49)
[2020-03-22] MEDS ORDERED: FUROSEMIDE 20 MG/ 2ML VIAL IV ONE (19:30)
[2020-03-22] MEDS: MELATONIN 3 MG TABLET PO SCH (19:47)
[2020-03-22] MEDS ORDERED: MELATONIN 5 MG TABLET PO ONE (20:02)
[2020-03-23] MEDS: propofoL 1,000 MG/100 ML VIAL IV PRN ×5 (00:31→17:25)
[2020-03-23] MEDS: INSULIN -REGULAR HUMAN 50 UNIT/0.5 ML ML SQ SCH ×4 (00:34→18:18)
[2020-03-23] MEDS: Meropenem 1,000 MG in NA CHLORIDE 0.9% 100 ML IV SCH ×3 (00:34→17:23)
[2020-03-23] MEDS: METHYLPREDNISOLONE 125 MG INJ IV SCH ×3 (00:34→19:50)
[2020-03-23] MEDS: CISATRACURIUM BESYLATE 40 MG in NA CHLORIDE 0.9% 80 ML IV PRN ×2 (01:00→18:10)
[2020-03-23] MEDS: LEVOTHYROXINE SOD 0.1 MG TAB PO SCH (05:57)
[2020-03-23 06:21] LABS: Albumin 2.3 g/dL (3.4-5.0); Bilirubin Total 0.9 mg/dL (0.2-1.0); C-Reactive Protein 10.3 mg/L (<3.00); Ferritin 2431.1 ng/mL (26-388); Magnesium 2.9 mg/dL (1.8-2.4); Potassium 4.6 mmol/L (3.5-5.1); Protein, Total 4.9 g/dL (6.4-8.2)
[2020-03-23] MEDS: ASCORBIC ACID 500 MG TABLET PO SCH ×3 (09:28→21:23)
[2020-03-23] MEDS: LACTOBACILLUS/ACIDOPHILUS TAB PO SCH ×3 (09:28→21:23)
[2020-03-23] MEDS: THIAMINE HCL 100 MG TABLET PO SCH (09:28)
[2020-03-23] MEDS: FAMOTIDINE 20 MG/2 ML VIAL IV SCH ×2 (09:28→21:22)
[2020-03-23] MEDS: VITAMIN D 1000 UNIT TAB PO SCH (09:28)
--- NOTE | 2020-03-23 09:28 | P.PN ---
Subjective Date of Service: 03/23/20 Primary Care Provider: Blake Chief Complaint: Respiratory failure Oxygen requirements declining Review of Systems is unable to be obtained Physical Examination - Vital Signs Temperature: 97.9 F Blood Pressure: 147/51 Pulse: 57 Respirations: 30 Pulse Ox (%): 94 - Studies Medications List Reviewed: Yes Assessment & Plan - Problems (Diagnosis) (1) Pneumonia due to COVID-19 virus Current Visit: Yes Status: Acute Plan: Respiratory failure oxygen levels declining ferritin level still above 2000 of the labs have been ordered pending hyperglycemia increase [place] patient is in AFib
[2020-03-23] MEDS: FUROSEMIDE 20 MG/ 2ML VIAL IV SCH (09:29)
[2020-03-23 09:39] LABS: Absolute Lymphocytes (CBC) 0.3 K/uL (0.7-4.9); Basophils % 0.3 % (0-1.3); Hematocrit 29.6 % (39.6-49.0); Lymphocytes % 1.3 % (15.3-44.8); MPV 9.9 fL (7.6-11.3); RBC Red Blood Cell Count 3.23 M/uL (4.33-5.43)
--- NOTE | 2020-03-23 09:51 | RAD REPORT ---
EXAM DESCRIPTION: RAD - Chest Single View - 03/23/2020 9:33 am CLINICAL HISTORY: respiratory failure COMPARISON: Portable March 22, 2020 TECHNIQUE: AP portable chest image was obtained 03/23/2020 9:33 am . FINDINGS: Interstitial and alveolar opacification present not substantially different from compariso n. There is questionable worsening in the right midlung field. Endotracheal tube remains in good posi tion. Feeding tube is in place with the tip below the diaphragm. Heart and vasculature are normal. No measurable pleural effusion and no pneumothorax. No acute bony abnormality seen. No acute aortic fin dings suspected. IMPRESSION: Bilateral interstitial and alveolar lung parenchymal opacification not substantially dif ferent.
[2020-03-23] MEDS: INSULIN GLARGINE 100 UNITS/ML SQ SCH ×2 (10:16→21:21)
[2020-03-23 10:50] LABS: Platelet Estimate DECR
[2020-03-23 10:51] LABS: Blood Morphology Comment NOT SEEN (NOT SEEN)
[2020-03-23] MEDS: FENTANYL CITR 100 MCG/2 ML IV PRN (11:11)
[2020-03-23] MEDS: MIDAZOLAM HCL 100 MG in NA CHLORIDE 0.9% 80 ML IV PRN (14:48)
--- NOTE | 2020-03-23 15:02 | P.PN ---
Subjective Date of Service: 03/22/20 Had a long discussion with family for about 30+ min. Explained to them the we did call [facility] for bed availability-they do not have any ICU beds available; continue on amiodarone drip and rate is controlled. Continue gently weaning down off the ventilator. Paralytics were discontinued. Most of the inflammatory markers have started coming down. Chest x-ray with no significant improvement which is not expected for probably about a week. Discuss different trial that are available but do not for see that happening at this hospital at this time prior facility. Asked about baricitinib, but told then that we do not have it available. Told him that other treatment would be dependent on Pulmonary recommendations. Spoke to patient's son and his brother and they both seem disappointed but are understanding as to why we do not have it available Review of Systems is unable to be obtained Physical Examination - Vital Signs Temperature: 97.6 F Blood Pressure: 155/54 Pulse: 70 Respirations: 30 Pulse Ox (%): 91 - Physical Exam General: Other (Intubated and sedated) HEENT: Other (Intubated and sedated NG tube in place) Respiratory: Diminished, Expiratory wheezes Cardiovascular: Irregular heart rate/rhythm, Systolic murmur Gastrointestinal: Normal bowel sounds, Soft and benign, Non-distended, No tenderness Musculoskeletal: No clubbing, No swelling, No tenderness Lymphatics: No axilla or inguinal lymphadenopathy - Studies Medications List Reviewed: Yes Assessment & Plan - Problems (Diagnosis) (1) Acute respiratory failure due to COVID-19 Current Visit: Yes Status: Acute (2) Hypoxia Current Visit: Yes Status: Acute (3) Thrombocytopenia Current Visit: Yes Status: Acute (4) Leukocytosis Current Visit: Yes Status: Acute (5) Renal insufficiency Current Visit: Yes Status: Acute (6) History of minimal change disease Current Visit: Yes Status: Acute (7) Atrial fibrillation with rapid ventricular response Current Visit: Yes Status: Acute (8) Hypermagnesemia Current Visit: Yes Status: Acute - Plan 1. Continue with IV antibiotics and IV steroids; increase free water; unfortunately there are no significant improvement with large dose steroids; mild improvement of some inflammatory markers 2. Finished Remdesivir; no improvements 3. Amiodarone drip; appreciate Cardiology assistance; monitor LFTs 4. Ventilation management per Pulmonary 5. [facility] transfer [facility] facility but they are at capacity as are all of their facilities 6. Continue with albuterol inhaler therapy; 7. Monitor renal function closely 8. Monitor inflammatory markers & additional studies to monitor patient's clinical picture closely 9. GI and DVT prophylaxis Discharge Plan: LTAC Plan to discharge in: Greater than 2 days - Advance Directives Does patient have a Living Will: No Does patient have a Durable POA for Healthcare: No - Code Status/Comfort Care Code Status: Full Code Critical Care: Yes Time Spent Managing PTS Care (In Minutes): 55 (discussion with family for 30 minutes)
--- NOTE | 2020-03-23 15:06 | P.PN ---
Subjective Date of Service: 03/23/20 Propofol discontinued and patient started on Versed. Continue with paralytics. Remains on mechanical ventilation with an FiO2 of 75%. Family asking about experimental drugs, and at this time explained to them the benefits and risks. Review of Systems 10-point ROS is otherwise unremarkable Physical Examination - Vital Signs Temperature: 97.6 F Blood Pressure: 155/54 Pulse: 70 Respirations: 30 Pulse Ox (%): 91 - Physical Exam General: Other (Sedated and intubated and patient on paralytics) Respiratory: Diminished, Expiratory wheezes Cardiovascular: Regular rate/rhythm, Normal S1 S2, No murmurs Gastrointestinal: Normal bowel sounds, Soft and benign, Non-distended, No tenderness Musculoskeletal: No clubbing, No swelling Neurological: Other ( patient is currently on paralytics) - Studies Medications List Reviewed: Yes Assessment & Plan - Problems (Diagnosis) (1) Acute respiratory failure due to COVID-19 Current Visit: Yes Status: Acute (2) Hypoxia Current Visit: Yes Status: Acute (3) Thrombocytopenia Current Visit: Yes Status: Acute (4) Leukocytosis Current Visit: Yes Status: Acute (5) Renal insufficiency Current Visit: Yes Status: Acute (6) History of minimal change disease Current Visit: Yes Status: Acute (7) Atrial fibrillation with rapid ventricular response Current Visit: Yes Status: Acute (8) Hypermagnesemia Current Visit: Yes Status: Acute - Plan Continue with plan of care as mentioned below: 1. Continue with IV antibiotics and IV steroids; increase free water because of elevated sodium but have decreased it as sodium has improved; remains on high- dose [id number]-Oznesm 125 mg IV Q 8 hr; this was tapered down from prior dosing of 250 mg IV Q 8 2. status post remdesivir treatment 3. Amiodarone drip; appreciate Cardiology assistance; monitor LFTs 4. Ventilation management per Pulmonary 5. Attempted transfer to [facility] facility but they are at capacity as are all of their facilities 6. Will continue with neb treatments as tolerated 7. Monitor renal function closely 8. Monitor inflammatory markers & additional studies to monitor patient's clinical picture closely 9. Chest x-ray with no substantial improvement 10. GI and DVT prophylaxis Discharge Plan: Other Plan to discharge in: Greater than 2 days - Advance Directives Does patient have a Living Will: No Does patient have a Durable POA for Healthcare: No - Code Status/Comfort Care Code Status: Full Code Critical Care: Yes Time Spent Managing PTS Care (In Minutes): 35
[2020-03-23 15:29] LABS: Arterial Blood Carboxyhemoglob 1.5 % (0-1.5); Blood Gas Oxyhemoglobin 78.4 % (94-97); Blood O2 Saturation 80.7 % (92-98.5)
--- NOTE | 2020-03-23 16:14 | EKG ---
Test Date: 2020-03-21 Test Time: 15:31:16 Rivet Heater: RT Gonzalez MEASUREMENT RESULTS: Intervals: Rate: 86 AK: QRSD: 90 QT: 418 QTc: 500 [place]: P: AK: QRS: 9 T: 200 INTERPRETIVE STATEMENTS: Atrial fibrillation ST & T wave abnormality, consider inferior ischemia or digitalis effect ST & T wave abnormality, consider anterolateral ischemia or digitalis effect Prolonged QT Abnormal ECG Compared to ECG 03/08/2020 01:32:02 ST (T wave) deviation now present Possible ischemia now present Prolonged QT interval now present Sinus rhythm no longer present Electronically Signed On 03-23-20 16:09:53 PROCUREMENT DIRECTOR by Joseph Ham
[2020-03-23] MEDS: VITAL AF 1,000 ML BOT RTH SCH (18:19)
--- NOTE | 2020-03-23 19:40 | PN ---
Date of Progress Note: 03/23/2020 The patient was seen by Dr. Duckworth on 03/22/2020 for atrial fibrillation. The patient was started on IV amiodarone. The patient is there for COVID pneumonia. The patient is on Lasix, insulin, antibio tics, and steroid. After his IV amiodarone, the patient converted to sinus bradycardia. His blood p ressure is 155/54. His white count of 23,000, remains intubated, glucose 206. I think we should con tinue the IV amiodarone for now until the patient is extubated. We will switch him to p.o. amiodaron e right now. He should be on anticoagulation in the long run. Echocardiogram was attempted on , but could not be done because of the patient's intubation and body position. We will re-attempt that sometime next week. COLE/JANNA Voice ID: [id number] Report ID: [id number]
[2020-03-23] MEDS: MELATONIN 3 MG TABLET PO SCH (21:00)
[2020-03-23] MEDS ORDERED: MELATONIN 5 MG TABLET PO ONE (21:33)
[2020-03-24] MEDS: INSULIN -REGULAR HUMAN 50 UNIT/0.5 ML ML SQ SCH ×4 (00:21→18:11)
[2020-03-24] MEDS: Meropenem 1,000 MG in NA CHLORIDE 0.9% 100 ML IV SCH ×3 (00:22→17:17)
[2020-03-24] MEDS: METHYLPREDNISOLONE 125 MG INJ IV SCH ×3 (00:22→17:18)
[2020-03-24] MEDS: AMIODARONE HCL 900 MG in Dextrose 5%-Water 482 ML IV SCH (02:30)
[2020-03-24 04:56] LABS: Absolute Lymphocytes (CBC) 0.1 K/uL (0.7-4.9); Basophils % 0.4 % (0-1.3); Hematocrit 29.8 % (39.6-49.0); Lymphocytes % 0.7 % (15.3-44.8); MPV 11.1 fL (7.6-11.3)
[2020-03-24 05:48] LABS: Arterial Blood Carboxyhemoglob 1.6 % (0-1.5); Blood Gas Oxyhemoglobin 86.2 % (94-97); Blood O2 Saturation 88.8 % (92-98.5)
[2020-03-24 05:52] LABS: C-Reactive Protein 7.43 mg/L (<3.00); Ferritin 2603.1 ng/mL (26-388); Magnesium 2.8 mg/dL (1.8-2.4); Phosphorus 3.5 mg/dL (2.5-4.9)
[2020-03-24] MEDS: LEVOTHYROXINE SOD 0.1 MG TAB PO SCH (06:14)
--- NOTE | 2020-03-24 08:30 | RAD REPORT ---
EXAM DESCRIPTION: Latanya Single View03/24/2020 6:21 am CLINICAL HISTORY: Respiratory failure COMPARISON: March 23, 2020 FINDINGS: Mild improvement in the right and no significant change in the left pulmonary opacities. Heart is enlarged Endotracheal tube with its tip well above the david. Development of bilateral subcutaneous emphysema mostly within the upper chest/neck. Pneumomediastinum is present. IMPRESSION: Development of a pneumomediastinum and subcutaneous emphysema. The patient's nurse Sadia arana was notified at 8:25 a.m. March 23, 2020
[2020-03-24] MEDS: MIDAZOLAM HCL 100 MG in NA CHLORIDE 0.9% 80 ML IV PRN (09:07)
[2020-03-24] MEDS: CISATRACURIUM BESYLATE 40 MG in NA CHLORIDE 0.9% 80 ML IV PRN (09:07)
[2020-03-24] MEDS: INSULIN GLARGINE 100 UNITS/ML SQ SCH ×2 (09:08→21:08)
[2020-03-24] MEDS: FAMOTIDINE 20 MG/2 ML VIAL IV SCH ×2 (09:09→21:09)
[2020-03-24] MEDS: THIAMINE HCL 100 MG TABLET PO SCH (09:09)
[2020-03-24] MEDS: FUROSEMIDE 20 MG/ 2ML VIAL IV SCH (09:09)
[2020-03-24] MEDS: LACTOBACILLUS/ACIDOPHILUS TAB PO SCH ×3 (09:10→21:09)
[2020-03-24] MEDS: VITAMIN D 1000 UNIT TAB PO SCH (09:10)
[2020-03-24] MEDS: ASCORBIC ACID 500 MG TABLET PO SCH ×3 (09:10→21:09)
[2020-03-24] MEDS: DOXYCYCLINE 100 MG CAP PO SCH ×2 (10:31→21:10)
--- NOTE | 2020-03-24 10:57 | P.PN ---
Subjective Date of Service: 03/24/20 Primary Care Provider: Blake Chief Complaint: Respiratory failure Patient is developed a slight pneumomediastinum as subcutaneous emphysema Review of Systems is unable to be obtained Physical Examination - Vital Signs Temperature: 97.6 F Blood Pressure: 145/57 Pulse: 70 Respirations: 23 Pulse Ox (%): 94 - Physical Exam General: Unresponsive Respiratory: Other (Subcutaneous emphysema) Cardiovascular: No edema, Abnormal S1 S2 - Studies Medications List Reviewed: Yes Assessment & Plan - Problems (Diagnosis) (1) Pneumonia due to COVID-19 virus Current Visit: Yes Status: Acute Plan: Respiratory failure continue to titrate his O2 down reduce peep continue with prone position ventilation platelet count white count of both improving ferritin level still very high blood gases show hypoxemia with permissive hypercapnia peep was reduce to 10 due to subcutaneous emphysema and pneumomediastinum patient is currently on meropenem and doxycycline high risk for hospital- acquired pneumonia still high risk for bleeding will change to Lovenox once is platelet count is over 50,000 patient is back in normal sinus rhythm continue amiodarone
[2020-03-24] MEDS: ATORVASTATIN 20 MG TAB PO SCH ×2 (12:09→21:09)
[2020-03-24] MEDS: VITAL AF 1,000 ML BOT RTH SCH (12:49)
--- NOTE | 2020-03-24 14:07 | EKG ---
Test Date: 2020-03-23 Test Time: 16:56:28 Automation Architect: EC MEASUREMENT RESULTS: Intervals: Rate: 72 SC: 124 QRSD: 84 QT: 424 QTc: 464 [place]: P: 117 SC: 124 QRS: 27 T: 189 INTERPRETIVE STATEMENTS: Normal sinus rhythm Septal infarct, age undetermined Possible Lateral infarct, age undetermined ST & T wave abnormality, consider anterior ischemia Abnormal ECG Compared to ECG 03/21/2020 15:31:16 Myocardial infarct finding now present Atrial fibrillation no longer present Prolonged QT interval no longer present ST (T wave) deviation still present Possible ischemia still present Electronically Signed On 03-24-20 14:04:48 DOCUMENTATION LEAD by Joseph Ham
[2020-03-24] MEDS: MELATONIN 3 MG TABLET PO SCH (21:00)
--- NOTE | 2020-03-24 21:08 | PN ---
We had asked to see the patient because of atrial fibrillation. He was placed by Dr. Harry and by Dr. Hale on IV amiodarone. He has COVID pneumonia. After 1 day of IV amiodarone, he converted to sinus bradycardia. The patient remains critical. He remains intubated. He is, however, in sinus shashank o n IV amiodarone. I would continue the IV amiodarone for now. Once he is able to take p.o., we can s witch him from IV amiodarone to p.o. amiodarone 400 b.i.d. for a week and then 200 mg daily. He shou ld be on anticoagulation after he goes home. An echocardiogram is pending. The avionics electronics technician was unabl e to do it on Thursday because of technical difficulties with the patient and his body position. We wi ll continue to follow him as needed. We will see what the echocardiogram shows on Thursday. JANICE Voice ID: [id number] Report ID: [id number]
[2020-03-24] MEDS ORDERED: MELATONIN 5 MG TABLET PO ONE (21:22)
[2020-03-25] MEDS: METHYLPREDNISOLONE 125 MG INJ IV SCH ×3 (00:38→17:36)
[2020-03-25] MEDS: Meropenem 1,000 MG in NA CHLORIDE 0.9% 100 ML IV SCH ×3 (00:38→17:36)
[2020-03-25] MEDS: MIDAZOLAM HCL 100 MG in NA CHLORIDE 0.9% 80 ML IV PRN ×2 (03:19→20:46)
[2020-03-25] MEDS: CISATRACURIUM BESYLATE 40 MG in NA CHLORIDE 0.9% 80 ML IV PRN ×2 (03:21→20:47)
[2020-03-25] MEDS: LEVOTHYROXINE SOD 0.1 MG TAB PO SCH (05:50)
[2020-03-25 05:56] LABS: Arterial Blood Carboxyhemoglob 1.7 % (0-1.5); Blood Gas Oxyhemoglobin 82.8 % (94-97); Blood O2 Saturation 85.3 % (92-98.5)
[2020-03-25 06:00] LABS: Absolute Lymphocytes (CBC) 0.2 K/uL (0.7-4.9); Basophils % 0.1 % (0-1.3); Hematocrit 28.7 % (39.6-49.0); MPV 11.1 fL (7.6-11.3)
[2020-03-25] MEDS: INSULIN -REGULAR HUMAN 50 UNIT/0.5 ML ML SQ SCH ×4 (06:01→17:36)
[2020-03-25 06:33] LABS: BUN Blood Urea Nitrogen 52 mg/dL (7-18); Bicarbonate 37 mmol/L (21-32); C-Reactive Protein 5.79 mg/L (<3.00); Ferritin 2406.8 ng/mL (26-388); Glucose Level 210 mg/dL (74-106); Magnesium 2.6 mg/dL (1.8-2.4); Potassium 4.7 mmol/L (3.5-5.1); Sodium Level 138 mmol/L (136-145)
--- NOTE | 2020-03-25 07:16 | P.PN ---
Subjective Date of Service: 03/24/20 Patient developed a pneumomediastinum as well as subcutaneous emphysema. Remains on mechanical ventilation. Weaning down the PEEP pressures per pulmonary. Spoke with patient's son regarding patient's clinical condition. Remains on paralytics at this time. Review of Systems 10-point ROS is otherwise unremarkable Physical Examination - Vital Signs Temperature: 97 F Blood Pressure: 160/65 Pulse: 72 Respirations: 24 Pulse Ox (%): 99 - Physical Exam General: Other (Sedated and intubated) Neck: Other (Subcutaneous emphysema noted on exam) Respiratory: Diminished Cardiovascular: Regular rate/rhythm, Normal S1 S2, No murmurs Gastrointestinal: Normal bowel sounds, Soft and benign, Non-distended, No tenderness Musculoskeletal: No clubbing, No swelling, No tenderness Integumentary: Other ( swelling noted of the upper and lower extremity) Neurological: Other ( patient on paralytics) - Studies Medications List Reviewed: Yes Assessment & Plan - Problems (Diagnosis) (1) Acute respiratory failure due to COVID-19 Current Visit: Yes Status: Acute (2) Hypoxia Current Visit: Yes Status: Acute (3) Thrombocytopenia Current Visit: Yes Status: Acute (4) Leukocytosis Current Visit: Yes Status: Acute (5) Renal insufficiency Current Visit: Yes Status: Acute (6) History of minimal change disease Current Visit: Yes Status: Acute (7) Atrial fibrillation with rapid ventricular response Current Visit: Yes Status: Acute (8) Hypermagnesemia Current Visit: Yes Status: Acute (9) Acquired pneumomediastinum Current Visit: Yes Status: Acute (10) Subcutaneous emphysema Current Visit: Yes Status: Acute - Plan Continue with plan of care as mentioned below: 1. Continue with IV antibiotics and IV steroids; remains on high-dose [id number]-Sgqfew 125 mg IV Q 8 hr; this was tapered down from prior dosing of 250 mg IV Q 8 2. Finished Remdesivir; no significant clinical improvement. LFTs stable 3. Amiodarone drip; appreciate Cardiology assistance; monitor LFTs 4. Ventilation management per Pulmonary; wean down PEEP pressures secondary to pneumomediastinum 5. Attempted transfer to [facility] facility but they are at capacity as are all of their facilities on 03/22/2020 6. Will continue with neb treatments as tolerated 7. Monitor renal function closely 8. Inflammatory markers have improved except for ferritin levels 9. Chest x-ray with no substantial improvement 10. GI and DVT prophylaxis Discharge Plan: Home Plan to discharge in: Greater than 2 days - Advance Directives Does patient have a Living Will: No Does patient have a Durable POA for Healthcare: No - Code Status/Comfort Care Code Status: Full Code Critical Care: Yes Time Spent Managing PTS Care (In Minutes): 40
[2020-03-25 08:30] LABS: White Blood Cell Scan OK (OK)
[2020-03-25 08:31] LABS: Blood Morphology Comment NOT SEEN (NOT SEEN); Platelet Estimate DECR
[2020-03-25] MEDS: AMIODARONE HCL 900 MG in Dextrose 5%-Water 482 ML IV SCH (09:01)
[2020-03-25] MEDS: INSULIN GLARGINE 100 UNITS/ML SQ SCH ×2 (09:02→20:49)
[2020-03-25] MEDS: FUROSEMIDE 20 MG/ 2ML VIAL IV SCH (09:02)
[2020-03-25] MEDS: FAMOTIDINE 20 MG/2 ML VIAL IV SCH ×2 (09:02→20:49)
[2020-03-25] MEDS: THIAMINE HCL 100 MG TABLET PO SCH (09:03)
[2020-03-25] MEDS: VITAL AF 1,000 ML BOT RTH SCH (09:03)
[2020-03-25] MEDS: DOXYCYCLINE 100 MG CAP PO SCH ×2 (09:03→20:48)
[2020-03-25] MEDS: ASCORBIC ACID 500 MG TABLET PO SCH ×3 (09:03→20:48)
[2020-03-25] MEDS: VITAMIN D 1000 UNIT TAB PO SCH (09:03)
[2020-03-25] MEDS: LACTOBACILLUS/ACIDOPHILUS TAB PO SCH ×3 (09:03→20:48)
[2020-03-25 09:25] LABS: Arterial Blood Carboxyhemoglob 1.6 % (0-1.5); Blood Gas Oxyhemoglobin 87.5 % (94-97); Blood O2 Saturation 90.1 % (92-98.5)
[2020-03-25] MEDS ORDERED: IVERMECTIN 3 MG TABS PO SCH (12:00)
[2020-03-25] MEDS: IVERMECTIN 3 MG TABS PO SCH (12:16)
--- NOTE | 2020-03-25 13:00 | RAD REPORT ---
EXAM DESCRIPTION: RAD - Chest Single View - 03/25/2020 7:19 am CLINICAL HISTORY: respiratory failure Chest pain. COMPARISON: Chest Single View dated 03/24/2020; Chest Single View dated 03/23/2020; Chest Single View da qamar 03/22/2020; Chest Single View dated 03/21/2020 FINDINGS: Portable technique limits examination quality. Bilateral pulmonary opacities are again noted, slightly greater on the right since comparative study. The heart is mildly prominent. The endotracheal intubation is noted. Pneumomediastinum and subcutane ous emphysema again noted.Small amount of pneumoperitoneum may also be present on today's study below the right hemidiaphragm leaflet. IMPRESSION: Evidence of subcutaneous emphysema, pneumomediastinum and possibly mild pneumoperitoneum is seen. Endotracheal intubation is stable. Bilateral interstitial lung markings are slightly worse on the right relative to prior study.
--- NOTE | 2020-03-25 19:23 | P.PN ---
Subjective Date of Service: 03/25/20 Primary Care Provider: Blake Chief Complaint: Respiratory failure No change in patient's condition he does get better in prone position still has some subcutaneous emphysema is on IV Versed sudden paralytic agent Review of Systems is unable to be obtained Physical Examination - Vital Signs Temperature: 97.3 F Blood Pressure: 112/55 Pulse: 71 Respirations: 30 Pulse Ox (%): 97 - Physical Exam General: Unresponsive Neck: Other (Subcutaneous emphysema) Respiratory: Diminished Cardiovascular: No edema, Regular rate/rhythm - Studies Medications List Reviewed: Yes Assessment & Plan - Problems (Diagnosis) (1) Pneumonia due to COVID-19 virus Current Visit: Yes Status: Acute Plan: Respiratory failure chest x-ray seems to be improving continues to remain thrombocytopenic white count is declining ferritin level is also declining continue titrate his O2 down.Invermectin was also given today anti neuro titrate his O2 down prior to wean him down on the paralytic agents he is no longer in AFib he is now in normal sinus rhythm poly can change it to p.o. amiodarone Dc IV
[2020-03-25] MEDS: ATORVASTATIN 20 MG TAB PO SCH (20:48)
[2020-03-25] MEDS: AMIODARONE HCL 200 MG TAB PO SCH (20:48)
[2020-03-25] MEDS: MELATONIN 3 MG TABLET PO SCH (20:51)
[2020-03-25] MEDS ORDERED: MELATONIN 5 MG TABLET PO ONE ×2 (20:54→20:56)
[2020-03-26] MEDS: METHYLPREDNISOLONE 125 MG INJ IV SCH ×3 (00:20→17:04)
[2020-03-26] MEDS: INSULIN -REGULAR HUMAN 50 UNIT/0.5 ML ML SQ SCH ×4 (00:20→18:00)
[2020-03-26] MEDS: Meropenem 1,000 MG in NA CHLORIDE 0.9% 100 ML IV SCH ×3 (00:21→16:59)
--- NOTE | 2020-03-26 02:16 | P.PN ---
Subjective Date of Service: 03/25/20 Patient remains hypoxic. Requiring significant vent support at this time. Continued paralytics & sedation. Patient's inflammatory markers continue to improve. Pneumomediastinum noted on x-ray along with questionable pneumoperitoneum. Review of Systems is unable to be obtained (patient is sedated and intubated) Physical Examination - Vital Signs Temperature: 97 F Blood Pressure: 129/56 Pulse: 73 Respirations: 18 Pulse Ox (%): 96 - Physical Exam General: Other ( patient is intubated and sedated) Neck: Other ( crepitus noted secondary to subcutaneous emphysema) Respiratory: Diminished, Rhonchi/gurgles Cardiovascular: Regular rate/rhythm, Normal S1 S2, No murmurs Gastrointestinal: Normal bowel sounds, Soft and benign, Non-distended, No rebound, No guarding Musculoskeletal: No clubbing, Swelling ( swelling of the upper and lower extremity noted) Neurological: Other ( patient is on paralytics and is sedated) - Studies Medications List Reviewed: Yes Assessment & Plan - Problems (Diagnosis) (1) Acute respiratory failure due to COVID-19 Current Visit: Yes Status: Acute (2) Hypoxia Current Visit: Yes Status: Acute (3) Thrombocytopenia Current Visit: Yes Status: Acute (4) Leukocytosis Current Visit: Yes Status: Acute (5) Renal insufficiency Current Visit: Yes Status: Acute (6) History of minimal change disease Current Visit: Yes Status: Acute (7) Atrial fibrillation with rapid ventricular response Current Visit: Yes Status: Acute (8) Hypermagnesemia Current Visit: Yes Status: Acute (9) Acquired pneumomediastinum Current Visit: Yes Status: Acute (10) Subcutaneous emphysema Current Visit: Yes Status: Acute - Plan Continue with plan of care as mentioned below: 1. Continue with IV antibiotics and IV steroids; remains on high-dose [id number] 125 mg IV Q 8 hr; this was tapered down from prior dosing of 250 mg IV Q 8 2. Finished Remdesivir; no significant clinical improvement. LFTs stable 3. Amiodarone drip; appreciate Cardiology assistance; monitor LFTs; recommending continuing amiodarone drip for now. Monitor heart rate 4. Ventilation management per Pulmonary; wean down PEEP pressures secondary to pneumomediastinum; hopefully arterial oxygenation is improving; checking blood gases 5. Attempted [place] to [place] facility but they are at capacity as are all of their facilities(on 03/22/2020) 6. Will continue with neb treatments as tolerated 7. Monitor renal function closely 8. Inflammatory markers have improved except for ferritin levels 9. Chest x-ray with pneumomediastinum and concerning for pneumoperitoneum. 10. GI and DVT prophylaxis Discharge Plan: Other Plan to discharge in: Greater than 2 days - Advance Directives Does patient have a Living Will: No Does patient have a Durable POA for Healthcare: No - Code Status/Comfort Care Code Status: Full Code Critical Care: Yes Time Spent Managing PTS Care (In Minutes): 35
[2020-03-26 05:32] LABS: Absolute Lymphocytes (CBC) 0.2 K/uL (0.7-4.9); Basophils % 0.3 % (0-1.3); Hematocrit 29.6 % (39.6-49.0); Lymphocytes % 0.9 % (15.3-44.8); MPV 10.3 fL (7.6-11.3); RBC Red Blood Cell Count 3.19 M/uL (4.33-5.43)
[2020-03-26] MEDS: LEVOTHYROXINE SOD 0.1 MG TAB PO SCH (06:01)
[2020-03-26 06:02] LABS: Arterial Blood Carboxyhemoglob 1.1 % (0-1.5); Blood Gas Oxyhemoglobin 87.7 % (94-97); Blood O2 Saturation 90.3 % (92-98.5)
[2020-03-26 06:08] LABS: C-Reactive Protein 4.51 mg/L (<3.00); Ferritin 2079.6 ng/mL (26-388); Magnesium 2.6 mg/dL (1.8-2.4); Phosphorus 3.5 mg/dL (2.5-4.9); Potassium 4.7 mmol/L (3.5-5.1)
--- NOTE | 2020-03-26 08:45 | RAD REPORT ---
EXAM DESCRIPTION: RAD - Chest Single View - 03/26/2020 7:03 am CLINICAL HISTORY: respiratory failure Chest pain. COMPARISON: Chest Single View dated 03/25/2020; Chest Single View dated 03/24/2020; Chest Single View da qamar 03/23/2020; Chest Single View dated 03/22/2020 FINDINGS: Portable technique limits examination quality. Tip of the endotracheal tube is above the david. Enteric tube descends into the stomach. Bilateral p ulmonary opacities are again seen, with little overall change. The heart is normal in size.Extensive subcutaneous emphysema appears mildly worse. The pneumomediastinum and trace pneumoperitoneum appear unchanged. IMPRESSION: Mild increase in the degree of subcutaneous emphysema noted.
[2020-03-26] MEDS: FAMOTIDINE 20 MG/2 ML VIAL IV SCH ×2 (09:25→21:25)
[2020-03-26] MEDS: THIAMINE HCL 100 MG TABLET PO SCH (09:25)
[2020-03-26] MEDS: ASCORBIC ACID 500 MG TABLET PO SCH ×3 (09:25→21:25)
[2020-03-26] MEDS: AMIODARONE HCL 200 MG TAB PO SCH ×2 (09:25→21:24)
[2020-03-26] MEDS: FUROSEMIDE 20 MG/ 2ML VIAL IV SCH (09:25)
[2020-03-26] MEDS: LACTOBACILLUS/ACIDOPHILUS TAB PO SCH ×3 (09:25→21:24)
[2020-03-26] MEDS: INSULIN GLARGINE 100 UNITS/ML SQ SCH ×2 (09:26→21:24)
[2020-03-26] MEDS: VITAMIN D 1000 UNIT TAB PO SCH (09:26)
[2020-03-26] MEDS: IVERMECTIN 3 MG TABS PO SCH (09:27)
[2020-03-26] MEDS: DOXYCYCLINE 100 MG CAP PO SCH ×2 (09:28→21:24)
--- NOTE | 2020-03-26 10:00 | PN ---
Date of Progress Note: 03/25/2020 Mr. Diaz is here for atrial fibrillation, COVID pneumonia. Remains intubated. Remains in sinus bradycardia, on IV amiodarone. Echocardiogram is pending for today. Anticoagulation for now is Love nox. We will consider Eliquis after he gets extubated. I will sign off his case for now. I will be available for questions if the need arises. COLE/JANNA Voice ID: [id number] Report ID: [id number]
[2020-03-26] MEDS: MIDAZOLAM HCL 100 MG in NA CHLORIDE 0.9% 80 ML IV PRN (13:58)
[2020-03-26] MEDS: LORazepam 2 MG/ML VIAL IV PRN (14:13)
[2020-03-26] MEDS: CISATRACURIUM BESYLATE 40 MG in NA CHLORIDE 0.9% 80 ML IV PRN ×2 (14:15→21:24)
--- NOTE | 2020-03-26 14:42 | P.PN ---
Subjective Date of Service: 03/26/20 Primary Care Provider: Blake Chief Complaint: Respiratory failure Subjective: Other (patient remains intubated and sedated) Physical Examination - Vital Signs Temperature: 96.5 F Blood Pressure: 163/71 Pulse: 85 Respirations: 22 Pulse Ox (%): 93 - Physical Exam General: Other (intubated and sedated. subq emphysema noted to the neck area.) Respiratory: Other (Patient intubated) Cardiovascular: Normal pulses, Regular rate/rhythm Neurological: Other (Patient remains intubated and sedated. Some edema to the lower extremity noted) - Studies Medications List Reviewed: Yes Assessment & Plan Discharge Plan: LTAC Plan to discharge in: Greater than 2 days Physician Review Additional Text: Impression: Acute hypoxic respiratory failure secondary to bilateral COVID 19 pneumonia Hyperglycemia secondary to pre diabetes and medication-solu Medrol Hypothyroidism Hyperlipidemia Thrombocytopenia Plan: Acute hypoxic respiratory failure secondary to bilateral COVID 19 pneumonia with subcu emphysema and pneumomediastinum: Case discussed with and son. Case also discuss with pulmonology. Patient remains on ventilator. Continue IV steroids. Continue antibiotic therapy. Continue to wean off ventilator. Monitor CBC, ABG and chest x-ray. Hyperglycemia secondary to pre diabetes and medication Solu-Medrol: Continue to adjust Lantus. Hypothyroidism: Continue home medication. Hyperlipidemia: Continue home medication Thrombocytopenia: Likely reactive will consult Hematology Time Spent Managing Pts Care (In Minutes): 55
--- NOTE | 2020-03-26 15:17 | ECHO ---
HEIGHT: 5 ft 8 in WEIGHT: 183 lb 9 oz DATE OF STUDY: 03/26/[address]: Mone Harry MD 2-DIMENSIONAL: YES M.MODE: YES DOPPLER: YES COLOR FLOW: YES TDS: PORTABLE: DEFINITY: BUBBLE STUDY: DIAGNOSIS: ATRIAL FIBRILLATION/ COVID PNEUMONIA CARDIAC HISTORY: CATHERIZATION: SURGERY: PROSTHETIC VALVE: PACEMAKER: MEASUREMENTS (cm) DIASTOLIC (NORMALS) SYSTOLIC (NORMALS) IVSd 1.2 (0.6-1.2) LA Diam 3.9 (1.9-4.0) LVEF 55-60% LVIDd 3.6 (3.5-5.7) LVIDs 2.3 (2.0-3.5) %FS 37% LVPWd 1.3 (0.6-1.2) Ao Diam (2.0-3.7) 2 DIMENSIONAL ASSESSMENT: RIGHT ATRIUM: LEFT ATRIUM: RIGHT VENTRICLE: LEFT VENTRICLE: TRICUSPID VALVE: MITRAL VALVE: PULMONIC VALVE: AORTIC VALVE: PERICARDIAL EFFUSION: AORTIC ROOT: LEFT VENTRICULAR WALL MOTION: LIMITED STUDY DOPPLER/COLOR FLOW: COMMENTS: FOCUSED STUDY, POOR WINDOW. LEFT VENTRICULAR EJECTION FRACTON IS NORMAL 55-60%. RIGHT VENTRICULAR FUNCTION APPEARS NORMAL. TECHNOLOGIST: MACK GIBBONS
--- NOTE | 2020-03-26 19:32 | P.PN ---
Subjective Date of Service: 03/26/20 Primary Care Provider: Blake Chief Complaint: Respiratory failure Subjective: No new changes Limited IH/ ROS due to critical illness. Intubated. Persistent AMS off sedation. Review of Systems is unable to be obtained Physical Examination - Vital Signs Temperature: 96.5 F Blood Pressure: 145/60 Pulse: 84 Respirations: 30 Pulse Ox (%): 93 - Physical Exam General: In no apparent distress, Comatose HEENT: Atraumatic Neck: Supple Cardiovascular: Regular rate/rhythm, Edema Gastrointestinal: Non-distended Musculoskeletal: No clubbing, No contractures Integumentary: No rashes, No cyanosis Neurological: Normal tone - Studies Blood work reviewed in the chart. Imagings Data: EXAM DESCRIPTION: RAD - Chest Single View - 03/26/2020 7:03 am CLINICAL HISTORY: respiratory failure Chest pain. COMPARISON: Chest Single View dated 03/25/2020; Chest Single View dated 03/24/2020; Chest Single View dated 03/23/2020; Chest Single View dated 03/22/2020 FINDINGS: Portable technique limits examination quality. Tip of the endotracheal tube is above the david. Enteric tube descends into the stomach. Bilateral pulmonary opacities are again seen, with little overall change. The heart is normal in size.Extensive subcutaneous emphysema appears mildly worse. The pneumomediastinum and trace pneumoperitoneum appear unchanged. IMPRESSION: Mild increase in the degree of subcutaneous emphysema noted. Medications List Reviewed: Yes Assessment And Plan - Plan A/P: Continue current POC and Medications other than the changes listed. AM Labs PRN. Recommend daily weight. Acute hypoxic respiratory failure due to COVID-19 PNA sp intubation -COVID protocol/ Oxygen supplementation -Continue abx -Wean steroids as indicated MERCED, resolved Proteinuria -Repeat UA Microscopic hematuria -Repeat UA Hypernatremia, resolved Hypocalcemia -Continue Vitamin D3 LE Edema -Continue furosemide IFG -Titrate insulin as needed Anemia in chronic illness/ Thrombocytopenia -Transfuse PRBC as needed. -Follow up with H/O Toxic metabolic encephalopathy -Hold sedation at this time Critical Care: Yes (>30min)
[2020-03-26] MEDS ORDERED: MELATONIN 5 MG TABLET PO ONE (20:42)
[2020-03-26] MEDS: MELATONIN 3 MG TABLET PO SCH (21:00)
[2020-03-26] MEDS: ATORVASTATIN 20 MG TAB PO SCH (21:24)
[2020-03-26 22:25] LABS: Urine Appearance CLOUDY; Urine Bilirubin NEGATIVE (NEG); Urine Blood 3+ (NEG); Urine Color YELLOW; Urine Glucose NEGATIVE (NEG); Urine Protein TRACE (NEG); Urine Specific Gravity >=1.030 (1.005-1.030); Urine Urobilinogen 0.2 mg/dL (0.2-1.0); Urine pH 5.5 (5.0-7.0)
[2020-03-26 22:32] LABS: Urine Protein/Creatinine Ratio 0.84 ratio (<0.15)
[2020-03-26 22:35] LABS: Urine Amorphous Sediment 1+ /HPF (NONE SEEN); Urine Bacteria 20-50 /HPF (NONE SEEN); Urine Mucus 3+ /HPF (NONE SEEN); Urine RBC 20-50 /HPF (NONE SEEN)
[2020-03-27] MEDS: INSULIN -REGULAR HUMAN 50 UNIT/0.5 ML ML SQ SCH ×4 (00:31→17:10)
[2020-03-27] MEDS: METHYLPREDNISOLONE 125 MG INJ IV SCH ×3 (00:32→20:48)
[2020-03-27] MEDS: Meropenem 1,000 MG in NA CHLORIDE 0.9% 100 ML IV SCH ×2 (00:32→08:51)
[2020-03-27 05:22] LABS: Absolute Lymphocytes (CBC) 0.1 K/uL (0.7-4.9); Basophils % 0.2 % (0-1.3); Lymphocytes % 0.6 % (15.3-44.8); MPV 10.3 fL (7.6-11.3); RBC Red Blood Cell Count 2.92 M/uL (4.33-5.43)
[2020-03-27] MEDS: MIDAZOLAM HCL 100 MG in NA CHLORIDE 0.9% 80 ML IV PRN ×2 (05:25→20:56)
[2020-03-27] MEDS: CISATRACURIUM BESYLATE 40 MG in NA CHLORIDE 0.9% 80 ML IV PRN ×2 (05:26→16:48)
[2020-03-27 05:40] LABS: C-Reactive Protein 6.23 mg/L (<3.00); Ferritin 1747.9 ng/mL (26-388); Magnesium 2.4 mg/dL (1.8-2.4); Phosphorus 3.3 mg/dL (2.5-4.9); Potassium 4.9 mmol/L (3.5-5.1); Uric Acid 1.8 mg/dL (3.5-7.2)
[2020-03-27 06:00] LABS: Arterial Blood Carboxyhemoglob 1.9 % (0-1.5); Blood Gas Oxyhemoglobin 86.2 % (94-97); Blood O2 Saturation 89.1 % (92-98.5)
[2020-03-27] MEDS: LEVOTHYROXINE SOD 0.1 MG TAB PO SCH (06:08)
--- NOTE | 2020-03-27 06:40 | RAD REPORT ---
EXAM DESCRIPTION: Latanya Single View03/27/2020 6:04 am CLINICAL HISTORY: Respiratory failure COMPARISON: March 26, 2020 FINDINGS: No change in the diffuse bilateral pulmonary opacities. Subcutaneous emphysema and pneumom ediastinum unchanged. Endotracheal tube has its tip 5 centimeters above the david. Feeding tube has its tip in the stomach . IMPRESSION: No change since the prior exam
[2020-03-27] MEDS: AMIODARONE HCL 200 MG TAB PO SCH (08:49)
[2020-03-27] MEDS: ASCORBIC ACID 500 MG TABLET PO SCH ×3 (08:49→20:47)
[2020-03-27] MEDS: FUROSEMIDE 20 MG/ 2ML VIAL IV SCH (08:49)
[2020-03-27] MEDS: VITAMIN D 1000 UNIT TAB PO SCH (08:49)
[2020-03-27] MEDS: THIAMINE HCL 100 MG TABLET PO SCH (08:49)
[2020-03-27] MEDS: LACTOBACILLUS/ACIDOPHILUS TAB PO SCH ×3 (08:49→20:47)
[2020-03-27] MEDS: FAMOTIDINE 20 MG/2 ML VIAL IV SCH ×2 (08:49→20:48)
[2020-03-27] MEDS: INSULIN GLARGINE 100 UNITS/ML SQ SCH ×2 (08:50→20:49)
[2020-03-27] MEDS: DOXYCYCLINE 100 MG CAP PO SCH ×2 (08:53→20:48)
[2020-03-27] MEDS: IVERMECTIN 3 MG TABS PO SCH (08:53)
--- NOTE | 2020-03-27 12:12 | P.PN ---
Subjective Date of Service: 03/27/20 Primary Care Provider: Blake Chief Complaint: Respiratory failure Patient's condition is stable he is not progressing FiO2 70% the slight permissive hypercapnia still thrombocytopenic Review of Systems is unable to be obtained Physical Examination - Vital Signs Temperature: 98.9 F Blood Pressure: 125/49 Pulse: 78 Respirations: 30 Pulse Ox (%): 98 - Studies Medications List Reviewed: Yes Assessment & Plan - Problems (Diagnosis) (1) Pneumonia due to COVID-19 virus Current Visit: Yes Status: Acute Plan: Respiratory failure patient still has subcutaneous emphysema will try pressure control ventilation patient's ferritin level is decreasing at count is still elevated patient is on steroids chest x-ray no change shows subcutaneous emphysema blood sugar is less than 200 as no clinical evidence of sepsis will Dc antibiotics patient only had a transient episode of AFib Dc amiodarone due to the risk of pulmonary toxicity the at the metoprolol at risk for anticoagulation due to thrombocytopenic continue with doxycycline and Rocephin Dc meropenem sputum cultures
[2020-03-27] MEDS: CEFTRIAXONE/SWI 1gm 1 GM/10 ML SYR IV SCH (12:48)
[2020-03-27 14:43] LABS: Absolute Lymphocytes (CBC) 0.2 K/uL (0.7-4.9); Basophils % 0.3 % (0-1.3); Hematocrit 27.7 % (39.6-49.0); MPV 10.1 fL (7.6-11.3); RBC Red Blood Cell Count 2.99 M/uL (4.33-5.43)
[2020-03-27 14:45] LABS: Protime INR 1.01
[2020-03-27 15:01] LABS: Bilirubin Total 0.7 mg/dL (0.2-1.0); Potassium 4.6 mmol/L (3.5-5.1); Protein, Total 4.7 g/dL (6.4-8.2)
[2020-03-27 15:11] LABS: Blood Morphology Comment NOT SEEN (NOT SEEN); Platelet Estimate DECR
--- NOTE | 2020-03-27 15:20 | P.PN ---
Subjective Date of Service: 03/27/20 Primary Care Provider: Blake Chief Complaint: Respiratory failure Subjective: Other (Overall stable. Patient remains on ventilator.) Physical Examination - Vital Signs Temperature: 98.9 F Blood Pressure: 148/61 Pulse: 67 Respirations: 30 Pulse Ox (%): 91 - Physical Exam General: Other (Patient intubated and sedated. Patient in prone position) Neck: Other (Subcutaneous emphysema noted) Respiratory: Other (Patient intubated) Cardiovascular: Normal pulses Other Physical/Emotional Findings: Patient remains intubated - Studies Medications List Reviewed: Yes Assessment & Plan Discharge Plan: LTAC Plan to discharge in: Greater than 2 days Physician Review Additional Text: Impression: Acute hypoxic respiratory failure secondary to bilateral COVID 19 pneumonia Hyperglycemia secondary to pre diabetes and medication-solu Medrol Hypothyroidism Hyperlipidemia Thrombocytopenia Paroxysmally atrial fibrillation Plan: Acute hypoxic respiratory failure secondary to bilateral COVID 19 pneumonia with subcu emphysema and pneumomediastinum: Patient remains intubated and sedated. Case discussed with pulmonology. Pulmonology plans to adjust IV antibiotic therapy. IV antibiotic therapy deescalated. Amiodarone discontinued. This had been started for paroxysmal atrial fibrillation. Patient remains normal sinus rhythm. Hematology consulted due to thrombocytopenia. Will discuss case further with Hematology. Continue IV steroids. Continue monitor electrolytes and inflammatory markers. No change in x-ray. Will discuss further with family. Hyperglycemia secondary to pre diabetes and medication Solu-Medrol: Continue to adjust Lantus. Hypothyroidism: Continue home medication. Hyperlipidemia: Continue home medication Thrombocytopenia: Likely reactive. Hematology consulted. Will discuss case further with him. Paroxysmally atrial fibrillation: Amiodarone discontinued. Patient main stable. Normal sinus rhythm noted. Anticoagulation therapy held due to thrombocytopenia. Time Spent Managing Pts Care (In Minutes): 55
[2020-03-27] MEDS: VITAL AF 1,000 ML BOT RTH SCH (16:45)
[2020-03-27 18:39] LABS: Blood Gas Oxyhemoglobin 86.2 % (94-97); Blood O2 Saturation 89.1 % (92-98.5)
[2020-03-27] MEDS: ATORVASTATIN 20 MG TAB PO SCH (20:47)
[2020-03-27] MEDS: METOPROLOL TAR 25 MG TAB PO SCH (20:47)
[2020-03-27] MEDS: MELATONIN 3 MG TABLET PO SCH (20:49)
[2020-03-27] MEDS ORDERED: MELATONIN 5 MG TABLET PO ONE (20:56)
[2020-03-27] MEDS ORDERED: METOPROLOL XL 25 MG TAB PO SCH (21:00)
--- NOTE | 2020-03-27 21:20 | P.PN ---
Subjective Date of Service: 03/27/20 Primary Care Provider: Blake Chief Complaint: Respiratory failure Subjective: No new changes Limited IH/ ROS due to critical illness. Intubated. Review of Systems is unable to be obtained Physical Examination - Vital Signs Temperature: 97.9 F Blood Pressure: 149/48 Pulse: 82 Respirations: 26 Pulse Ox (%): 91 - Physical Exam General: Comatose HEENT: Atraumatic Neck: Supple Respiratory: Diminished Cardiovascular: Regular rate/rhythm, Edema Gastrointestinal: Non-distended Musculoskeletal: No clubbing, No contractures Integumentary: No rashes Neurological: Abnormal speech Other Physical/Emotional Findings: Patient remains intubated - Studies Blood work reviewed in the chart. Imagings Data: EXAM DESCRIPTION: Latanya Single View03/27/2020 6:04 am CLINICAL HISTORY: Respiratory failure COMPARISON: March 26, 2020 FINDINGS: No change in the diffuse bilateral pulmonary opacities. Subcutaneous emphysema and pneumomediastinum unchanged. Endotracheal tube has its tip 5 centimeters above the david. Feeding tube has its tip in the stomach. IMPRESSION: No change since the prior exam Medications List Reviewed: Yes Assessment And Plan - Plan A/P: Continue current POC and Medications other than the changes listed. AM Labs PRN. Recommend daily weight. Acute hypoxic respiratory failure due to COVID-19 PNA sp intubation -COVID protocol/ Oxygen supplementation -Continue abx -Wean steroids as indicated -Continue ventilatory support MERCED, resolved Proteinuria -Repeat UA Microscopic hematuria -Repeat UA Hypernatremia now complicated by hyponatremia. -May need to reduce free water intake. Mixed alkalosis, worse Hypocalcemia -Continue Vitamin D3 LE Edema -Continue furosemide IFG -Titrate insulin as needed Anemia in chronic illness/ Thrombocytopenia -Transfuse PRBC as needed. -Follow up with H/O Moderate malnutrition -Consider IV Albumin as needed. Toxic metabolic encephalopathy -Hold sedation at this time Physician Review Additional Text: Impression: Acute hypoxic respiratory failure secondary to bilateral COVID 19 pneumonia Hyperglycemia secondary to pre diabetes and medication-solu Medrol Hypothyroidism Hyperlipidemia Thrombocytopenia Paroxysmally atrial fibrillation Plan: Acute hypoxic respiratory failure secondary to bilateral COVID 19 pneumonia with subcu emphysema and pneumomediastinum: Patient remains intubated and sedated. Case discussed with pulmonology. Pulmonology plans to adjust IV antibiotic therapy. IV antibiotic therapy deescalated. Amiodarone discontinued. This had been started for paroxysmal atrial fibrillation. Patient remains normal sinus rhythm. Hematology consulted due to thrombocytopenia. Will discuss case further with Hematology. Continue IV steroids. Continue monitor electrolytes and inflammatory markers. No change in x-ray. Will discuss further with family. Hyperglycemia secondary to pre diabetes and medication Solu-Medrol: Continue to adjust Lantus. Hypothyroidism: Continue home medication. Hyperlipidemia: Continue home medication Thrombocytopenia: Likely reactive. Hematology consulted. Will discuss case further with him. Paroxysmally atrial fibrillation: Amiodarone discontinued. Patient main stable. Normal sinus rhythm noted. Anticoagulation therapy held due to thrombocytopenia. Critical Care: Yes (>30min)
[2020-03-28] MEDS: INSULIN -REGULAR HUMAN 50 UNIT/0.5 ML ML SQ SCH ×4 (06:00→17:37)
[2020-03-28 06:05] LABS: Absolute Lymphocytes (CBC) 0.1 K/uL (0.7-4.9); Basophils % 0.3 % (0-1.3); Lymphocytes % 0.7 % (15.3-44.8); MPV 9.6 fL (7.6-11.3); RBC Red Blood Cell Count 3.01 M/uL (4.33-5.43)
[2020-03-28 06:22] LABS: BUN Blood Urea Nitrogen 58 mg/dL (7-18); Bicarbonate 37 mmol/L (21-32); C-Reactive Protein 4.48 mg/L (<3.00); Ferritin 1644.3 ng/mL (26-388); Glucose Level 163 mg/dL (74-106); Magnesium 2.6 mg/dL (1.8-2.4); Potassium 4.7 mmol/L (3.5-5.1); Sodium Level 134 mmol/L (136-145)
[2020-03-28] MEDS: LEVOTHYROXINE SOD 0.1 MG TAB PO SCH (06:22)
[2020-03-28 06:28] LABS: Arterial Blood Carboxyhemoglob 1.9 % (0-1.5); Blood Gas Oxyhemoglobin 82.1 % (94-97); Blood O2 Saturation 84.8 % (92-98.5)
[2020-03-28] MEDS: VITAL AF 1,000 ML BOT RTH SCH (06:42)
--- NOTE | 2020-03-28 07:41 | RAD REPORT ---
EXAM DESCRIPTION: RAD - Chest Single View - 03/28/2020 7:19 am CLINICAL HISTORY: Pneumonia COMPARISON: March 27 TECHNIQUE: AP portable chest image was obtained 03/28/2020 7:19 am . FINDINGS: Endotracheal tube and feeding tube remain in place. Bilateral airspace infiltrates are sti ll present slightly improved from comparison. Trachea remains midline. Heart and vasculature are norm al. No measurable pleural effusion and no pneumothorax. Subcutaneous emphysema changes are not substa ntially different. No acute aortic findings suspected. IMPRESSION: Slight clearing of the bilateral airspace infiltrates since March 27 imaging.
[2020-03-28] MEDS: THIAMINE HCL 100 MG TABLET PO SCH (09:00)
[2020-03-28] MEDS: CISATRACURIUM BESYLATE 40 MG in NA CHLORIDE 0.9% 80 ML IV PRN (09:07)
[2020-03-28] MEDS: INSULIN GLARGINE 100 UNITS/ML SQ SCH ×2 (10:09→20:46)
[2020-03-28] MEDS: CEFTRIAXONE/SWI 1gm 1 GM/10 ML SYR IV SCH (10:09)
[2020-03-28] MEDS: METHYLPREDNISOLONE 125 MG INJ IV SCH ×2 (10:10→20:35)
[2020-03-28] MEDS: FUROSEMIDE 20 MG/ 2ML VIAL IV SCH (10:10)
[2020-03-28] MEDS: LACTOBACILLUS/ACIDOPHILUS TAB PO SCH ×3 (10:10→20:36)
[2020-03-28] MEDS: FAMOTIDINE 20 MG/2 ML VIAL IV SCH ×2 (10:11→20:36)
[2020-03-28] MEDS: ASCORBIC ACID 500 MG TABLET PO SCH ×3 (10:11→20:36)
[2020-03-28] MEDS: DOXYCYCLINE 100 MG CAP PO SCH ×2 (10:11→20:35)
[2020-03-28] MEDS: METOPROLOL TAR 25 MG TAB PO SCH ×2 (10:11→20:36)
[2020-03-28] MEDS: VITAMIN D 1000 UNIT TAB PO SCH (10:12)
[2020-03-28] MEDS: IVERMECTIN 3 MG TABS PO SCH (10:13)
--- NOTE | 2020-03-28 12:14 | P.PN ---
Subjective Date of Service: 03/28/20 Primary Care Provider: Blake Chief Complaint: Respiratory failure Patient's condition is stable continue to wean down on oxygen repeat blood gases chest x-ray shows some bilateral interstitial changes this morning he was on FiO2 of 80% Review of Systems is unable to be obtained Physical Examination - Vital Signs Temperature: 97.0 F Blood Pressure: 113/49 Pulse: 71 Respirations: 28 Pulse Ox (%): 94 - Physical Exam General: Unresponsive Respiratory: Clear to auscultation bilaterally, Diminished Other Physical/Emotional Findings: Patient remains intubated - Studies Medications List Reviewed: Yes Assessment & Plan - Problems (Diagnosis) (1) Pneumonia due to COVID-19 virus Current Visit: Yes Status: Acute Plan: Respiratory failure still thrombocytopenic white count is declining a repeat blood gases continue to wean down on sedation in Dc paralytics chemistries BUN is mildly elevated ferritin levels are declining CRP is less than 5 patient is on maximum therapy amiodarone discontinued
[2020-03-28] MEDS ORDERED: FUROSEMIDE 20 MG/ 2ML VIAL IV ONE (12:30)
[2020-03-28] MEDS: MIDAZOLAM HCL 100 MG in NA CHLORIDE 0.9% 80 ML IV PRN (12:49)
[2020-03-28 13:40] LABS: Blood Gas Oxyhemoglobin 86.2 % (94-97)
--- NOTE | 2020-03-28 14:11 | P.PN ---
Subjective Date of Service: 03/28/20 Primary Care Provider: Blake Chief Complaint: Respiratory failure Subjective: Other (Overall stable) Physical Examination - Vital Signs Temperature: 97.0 F Blood Pressure: 116/48 Pulse: 60 Respirations: 28 Pulse Ox (%): 94 - Physical Exam General: Other (Patient intubated and sedated) Neck: Other (Patient appears to have less subcutaneous emphysema) Respiratory: Other (Patient intubated and sedated) Cardiovascular: Normal pulses Other Physical/Emotional Findings: Patient remains intubated - Studies Medications List Reviewed: Yes Assessment & Plan Discharge Plan: LTAC Plan to discharge in: Greater than 2 days Physician Review Additional Text: Impression: Acute hypoxic respiratory failure secondary to bilateral COVID 19 pneumonia Hyperglycemia secondary to pre diabetes and medication-solu Medrol Hypothyroidism Hyperlipidemia Thrombocytopenia Paroxysmally atrial fibrillation Plan: Acute hypoxic respiratory failure secondary to bilateral COVID 19 pneumonia with subcu emphysema and pneumomediastinum: Patient remains intubated and sedated. Case discussed with pulmonology. Patient remained stable. Continue to wean off paralytic and sedation medication. Continue to wean off ventilator. Case discussed with pulmonology in detail. Case also discuss with hematology and ENT. ThrombocytopeniaReactive likely related to coded. Supportive care recommended by Hematology. ENT to evaluate for possible trach in the near future. She will look at guidelines. Also spoke with Nephrology. Nephrology to add additional Lasix. Spoke with family in detail. Continue with current plan of care. Hyperglycemia secondary to pre diabetes and medication Solu-Medrol: Continue to adjust Lantus for better blood sugar control. Hypothyroidism: Continue home medication. Hyperlipidemia: Continue home medication Thrombocytopenia reactive likely related to above: Case discussed with hematology. Continue supportive care. Paroxysmally atrial fibrillation: Amiodarone discontinued. Patient main sta ble. Patient remains in sinus rhythm.. Anticoagulation therapy held due to thrombocytopenia. Time Spent Managing Pts Care (In Minutes): 55
[2020-03-28] MEDS: ATORVASTATIN 20 MG TAB PO SCH (20:36)
[2020-03-28] MEDS: MELATONIN 3 MG TABLET PO SCH (20:47)
[2020-03-28] MEDS ORDERED: MELATONIN 5 MG TABLET PO ONE (20:48)
--- NOTE | 2020-03-28 23:20 | PN ---
Date of Progress Note: 03/28/2020 Subjective: The patient was admitted with COVID pneumonia, has respiratory failure, intubated. The patient is being admitted since March 08, had acute kidney injury, recovered. Objective: Vital Signs: When I saw the patient blood pressure 123/61, pulse of 92, afebrile. The patient had good urine output of 2400, negative only 500. Chest: Faint rales bilateral. Heart: S1, S2, systolic murmur. Abdomen: Soft, nontender. Extremities: +2 edema. Neuro: The patient is vent. Moving 4 extremities. No focality. Laboratory Data: Sodium 134, potassium 4.7, bicarb 37, BUN 58, creatinine 0.7, calcium of 8, phosphorus of 3, magnesium 2.6. Albumin of 2. TSH 0.01. Current Medications: The patient on include; 1. Ceftriaxone. 2. Doxycycline. 3. Atorvastatin. 4. Metoprolol. 5. Sedation. 6. Lasix 20 daily. 7. Pepcid. 8. Levothyroxine. 9. Solu-Medrol. 10. Fentanyl. 11. Vitamin C. 12. Thiamin. Assessment And Plan: 1. Acute kidney injury, secondary to toxic acute tubular necrosis/COVID nephropathy, resolved but still on the over-volume side. I am going to give the patient extra dose of Lasix. Continue Lasix 20 daily. 2. Anasarca, secondary to malnourished hypoalbuminemia. TSH within normal limit. Protein creatinine nonnephrotic. I am going to continue diuresis. We will monitor the patient closely. 3. Microscopic hematuria, on repeated UA. Kidney function has been normalized. I doubt to be nephritis. It could be secondary to the COVID nephropathy. We will continue to monitor. The patient is not a candidate for any procedure right now. We will follow up. 4. Alkalosis, especially secondary to contraction alkalosis. I am going to give the patient a single dose of Lasix today. Then, we will start back up the patient on diuresis. I do not see the need to use albumin to mobilize third space fluid for the time being as the patient is responding well. 5. Hypernatremia, resolved. 6. Hyponatremia, secondary to dilutional one. Adjust free water. Continue diuresis. 7. Respiratory failure, secondary to COVID pneumonia/over volume. Continue current antibiotic. Continue vent support. We will follow up with the Primary and Pulmonary. time spend exam the patient face to face , place order , discussed the case with other receiving team member hospitalist and other [employer] as[facility] consultant 45 min. DYLAN Voice ID: [id number] Report ID: [id number] GABRIELA
[2020-03-29] MEDS: LEVOTHYROXINE SOD 0.1 MG TAB PO SCH (05:14)
[2020-03-29] MEDS: INSULIN -REGULAR HUMAN 50 UNIT/0.5 ML ML SQ SCH ×4 (05:15→18:00)
[2020-03-29 05:50] LABS: C-Reactive Protein 3.41 mg/L (<3.00); Ferritin 1789.2 ng/mL (26-388); Magnesium 2.4 mg/dL (1.8-2.4); Phosphorus 3.4 mg/dL (2.5-4.9); Potassium 4.6 mmol/L (3.5-5.1)
[2020-03-29 05:58] LABS: Absolute Lymphocytes (CBC) 0.1 K/uL (0.7-4.9); Basophils % 0.1 % (0-1.3); Hematocrit 29.3 % (39.6-49.0); Lymphocytes % 0.5 % (15.3-44.8); MPV 10.6 fL (7.6-11.3); RBC Red Blood Cell Count 3.17 M/uL (4.33-5.43)
[2020-03-29 06:17] LABS: Arterial Blood Carboxyhemoglob 1.8 % (0-1.5); Blood Gas Oxyhemoglobin 85.9 % (94-97); Blood O2 Saturation 88.6 % (92-98.5)
[2020-03-29] MEDS: CEFTRIAXONE/SWI 1gm 1 GM/10 ML SYR IV SCH (09:00)
[2020-03-29] MEDS: THIAMINE HCL 100 MG TABLET PO SCH (09:00)
--- NOTE | 2020-03-29 09:01 | RAD REPORT ---
EXAM DESCRIPTION: RAD - Chest Single View - 03/29/2020 6:44 am CLINICAL HISTORY: Pneumonia Chest pain. COMPARISON: Chest Single View dated 03/28/2020; Chest Single View dated 03/27/2020; Chest Single View da qamar 03/26/2020; Chest Single View dated 03/25/2020 FINDINGS: Portable technique limits examination quality. Mild bilateral pulmonary opacities are again noted, unchanged. The heart is mildly enlarged in size. ET tube tip is above the david. Enteric tube descends into the stomach.Subcutaneous emphysema, pneum omediastinum and pneumoperitoneum again noted. IMPRESSION: Stable chest since 03/28/2020.
[2020-03-29] MEDS: FUROSEMIDE 20 MG/ 2ML VIAL IV SCH (09:09)
[2020-03-29] MEDS: FAMOTIDINE 20 MG/2 ML VIAL IV SCH (09:09)
[2020-03-29] MEDS: METHYLPREDNISOLONE 125 MG INJ IV SCH (09:09)
[2020-03-29] MEDS: INSULIN GLARGINE 100 UNITS/ML SQ SCH ×2 (09:10→21:29)
[2020-03-29] MEDS: ASCORBIC ACID 500 MG TABLET PO SCH ×3 (09:11→21:29)
[2020-03-29] MEDS: DOXYCYCLINE 100 MG CAP PO SCH ×2 (09:11→21:28)
[2020-03-29] MEDS: METOPROLOL TAR 25 MG TAB PO SCH ×2 (09:12→21:28)
[2020-03-29] MEDS: VITAMIN D 1000 UNIT TAB PO SCH (09:12)
[2020-03-29] MEDS: LACTOBACILLUS/ACIDOPHILUS TAB PO SCH ×3 (09:12→21:28)
[2020-03-29] MEDS: IVERMECTIN 3 MG TABS PO SCH (09:13)
[2020-03-29] MEDS: VITAL AF 1,000 ML BOT RTH SCH (09:33)
[2020-03-29 09:56] LABS: Platelet Estimate DECR; White Blood Cell Scan OK (OK)
[2020-03-29 09:57] LABS: Blood Morphology Comment NOT SEEN (NOT SEEN)
[2020-03-29] MEDS ORDERED: FUROSEMIDE 20 MG/ 2ML VIAL IV ONE (10:34)
[2020-03-29] MEDS: LORazepam 2 MG/ML VIAL IV PRN ×2 (12:37→21:29)
--- NOTE | 2020-03-29 12:42 | PN ---
Date of Progress Note: 03/29/2020 Subjective: The patient was admitted with COVID pneumonia. Had to be intubated on vent. Had acute kidney injury and hematuria. Kidney function has been improving. The patient still has significant leukocytosis. His requirement of FiO2 has improved. Physical Examination: Vital Signs: Blood pressure 108/58, pulse of 64. The patient dropped FiO2 down to the 70. Sedation has been decreased. The patient had urine output of 2400. The patient negative of 500. Chest: Crackles bilateral. Heart: S1, S2. Regular. Abdomen: Soft, nontender. Extremities: +1 edema. Neuro: The patient is sedated on vent, but following commands. Laboratory Data: WBC 18.6, H and H 9.6/29.3, platelet 34. Sodium 135, potassium 4.6, bicarb 37, BUN 62, creatinine 0.9, calcium 8.1, phos 3.4, magnesium 2.4. C-reactive protein 3.4, trending down. Current Medications: The patient is on include: 1. Ceftriaxone. 2. Doxycycline. 3. Atorvastatin. 4. Metoprolol 25 b.i.d. 5. Haloperidol. 6. Lasix 40 received yesterday. 7. Solu-Medrol. 8. Levothyroxine. Assessment And Plan: 1. Acute kidney injury secondary to multifactorial toxic acute tubular necrosis, COVID nephropathy with microscopic hematuria. Kidney function has been improved. Hematuria persists even though. I do not see the need for further evaluation. The patient not a candidate for any biopsy. I am going to go ahead and send for serology to evaluate for pulmonary-renal syndrome even though I doubt it given that the kidney function has been improved without any significant treatment except the steroid. 2. Hypertension, controlled, optimal. 3. Hypernatremia, resolved, currently hyponatremia with the presence of anasarca. I am going to go ahead and place the patient on Lasix 40 mg daily and we will decrease the free water to 200 every 6 instead of 400 to achieve better volume status for the patient and we will follow up. 4. Hematuria, as above. 5. Respiratory failure secondary to COVID pneumonia/over volume. Continue vent support. We will optimize the fluid status with the diuresis, decreasing free water. 6. Hypocalcemia, resolved. 7. Alkalosis secondary to respiratory status, stable. We will continue diuresis. Time spent discussing with the patient, [id number], using the translation, discussing with the staff and placing an order, discussing with over subspecialty and hospitalist 45 minutes. DYLAN Voice ID: [id number] Report ID: [id number] GABRIELA
--- NOTE | 2020-03-29 12:57 | P.PN ---
Subjective Date of Service: 03/29/20 Primary Care Provider: Blake Chief Complaint: Respiratory failure No change in patient's condition addition is been reduce and prone positioning all night long still hypoxic Review of Systems is unable to be obtained Physical Examination - Vital Signs Temperature: 97.4 F Blood Pressure: 100/58 Pulse: 64 Respirations: 28 Pulse Ox (%): 98 - Physical Exam General: Unresponsive Respiratory: Clear to auscultation bilaterally, Other (Subcutaneous emphysema) Cardiovascular: Regular rate/rhythm, Edema (Mild edema) Other Physical/Emotional Findings: Patient remains intubated - Studies Medications List Reviewed: Yes Assessment & Plan - Problems (Diagnosis) (1) Pneumonia due to COVID-19 virus Current Visit: Yes Status: Acute Plan: Respiratory failure increase peep to 12 cm no pneumothorax advance endotracheal tube white count mildly elevated thrombocytopenia is improving significant hyper ferritin anemia reduce dose of Solu-Medrol to 40 mg IV Q 12 blood sugars controlled reduce dose of insulin
--- NOTE | 2020-03-29 16:28 | P.PN ---
Subjective Date of Service: 03/29/20 Primary Care Provider: Blake Chief Complaint: Respiratory failure Subjective: Other (Patient now off paralytic. Patient remains intubated. some sedation required.) Physical Examination - Vital Signs Temperature: 97.4 F Blood Pressure: 126/49 Pulse: 72 Respirations: 22 Pulse Ox (%): 91 - Physical Exam General: Other (Patient intubated) HEENT: Atraumatic Respiratory: Other (Patient intubated. No distress noted) Cardiovascular: Normal pulses Integumentary: Other (Edema to the lower extremities and upper extremities) Other Physical/Emotional Findings: Patient remains intubated - Studies Medications List Reviewed: Yes Assessment & Plan Discharge Plan: LTAC Plan to discharge in: Greater than 2 days Physician Review Additional Text: Impression: Acute hypoxic respiratory failure secondary to bilateral COVID 19 pneumonia Hyperglycemia secondary to pre diabetes and medication-solu Medrol Hypothyroidism Hyperlipidemia Thrombocytopenia Paroxysmally atrial fibrillation Plan: Acute hypoxic respiratory failure secondary to bilateral COVID 19 pneumonia with subcu emphysema and pneumomediastinum: Patient remains intubated. Paralytic discontinued. Sedation will be used as needed. Continue to wean off ventilator. Case discussed in detail with pulmonology. Pulmonology has made adjustments to medications. Also spoke to Nephrology. Nephrology to decrease free water. Lab reviewed. Overall stable. Platelet count improved. Hemoglobin stable. CRP improved. Slight elevation in ferritin. Will continue to monitor closely. Continue supportive measures at this time. Continue to wean off ventilator as directed by pulmonology. Will discuss case in detail with family. Will also discuss with ENT for possible future trach. Hyperglycemia secondary to pre diabetes and medication Solu-Medrol: Continue to adjust Lantus for better blood sugar control. Pulmonology continues to adjust medication Hypothyroidism: Continue home medication. Hyperlipidemia: Continue home medication Thrombocytopenia reactive likely related to above: Case discussed with hematology. Continue supportive care. Paroxysmally atrial fibrillation: Amiodarone discontinued. Patient remains stable. Patient remains in sinus rhythm.. Anticoagulation therapy held due to thrombocytopenia. Time Spent Managing Pts Care (In Minutes): 55
[2020-03-29] MEDS: MELATONIN 3 MG TABLET PO SCH (21:00)
[2020-03-29] MEDS ORDERED: MELATONIN 5 MG TABLET PO ONE (21:15)
[2020-03-29] MEDS: METHYLPREDNISOLONE 40 MG INJ IV SCH (21:28)
[2020-03-29] MEDS: ATORVASTATIN 20 MG TAB PO SCH (21:29)
[2020-03-29] MEDS: FAMOTIDINE 20 MG TAB PO SCH (21:30)
[2020-03-30] MEDS: INSULIN -REGULAR HUMAN 50 UNIT/0.5 ML ML SQ SCH ×5 (00:18→23:50)
[2020-03-30 05:52] LABS: Arterial Blood Carboxyhemoglob 1.9 % (0-1.5); Blood O2 Saturation 85.7 % (92-98.5)
[2020-03-30 06:15] LABS: Absolute Lymphocytes (CBC) 0.2 K/uL (0.7-4.9); Basophils % 0.3 % (0-1.3); Hematocrit 27.9 % (39.6-49.0); MPV 10.4 fL (7.6-11.3); RBC Red Blood Cell Count 2.99 M/uL (4.33-5.43)
[2020-03-30 06:18] LABS: C-Reactive Protein 9.06 mg/L (<3.00); Ferritin 1771.2 ng/mL (26-388); Magnesium 2.3 mg/dL (1.8-2.4); Phosphorus 4.1 mg/dL (2.5-4.9); Potassium 4.6 mmol/L (3.5-5.1)
[2020-03-30] MEDS: LEVOTHYROXINE SOD 0.1 MG TAB PO SCH (06:40)
[2020-03-30] MEDS: VITAMIN D 1000 UNIT TAB PO SCH (08:40)
[2020-03-30] MEDS: LORazepam 2 MG/ML VIAL IV PRN ×4 (08:40→17:47)
[2020-03-30] MEDS: FAMOTIDINE 20 MG TAB PO SCH ×2 (08:40→21:08)
[2020-03-30] MEDS: ASCORBIC ACID 500 MG TABLET PO SCH ×3 (08:40→21:08)
[2020-03-30] MEDS: CEFTRIAXONE/SWI 1gm 1 GM/10 ML SYR IV SCH (08:40)
[2020-03-30] MEDS: LACTOBACILLUS/ACIDOPHILUS TAB PO SCH ×3 (08:41→21:05)
[2020-03-30] MEDS: METHYLPREDNISOLONE 40 MG INJ IV SCH ×2 (08:41→21:08)
[2020-03-30] MEDS: FUROSEMIDE 40 MG/4 ML VIAL IV SCH (08:41)
[2020-03-30] MEDS: METOPROLOL TAR 25 MG TAB PO SCH ×2 (08:42→21:00)
[2020-03-30] MEDS: THIAMINE HCL 100 MG TABLET PO SCH (08:42)
[2020-03-30] MEDS: INSULIN GLARGINE 100 UNITS/ML SQ SCH ×2 (08:44→21:05)
[2020-03-30] MEDS: DOXYCYCLINE 100 MG CAP PO SCH ×2 (08:45→21:09)
[2020-03-30 08:50] LABS: Anisocytosis 1+; Basophilic Stippling 1+; Blood Morphology Comment NOTED (NOT SEEN); Platelet Estimate DECR; Polychromasia SLIGHT
--- NOTE | 2020-03-30 09:25 | RAD REPORT ---
EXAM DESCRIPTION: RAD - Chest Single View - 03/30/2020 6:39 am CLINICAL HISTORY: Pneumonia Chest pain. COMPARISON: Chest Single View dated 03/29/2020; Chest Single View dated 03/28/2020; Chest Single View da qamar 03/27/2020; Chest Single View dated 03/26/2020 FINDINGS: Portable technique limits examination quality. Bilateral interstitial and alveolar lung opacities appear stable. There has been a significant increa se in the degree of subcutaneous emphysema since prior study. Heart size is normal. Endotracheal tube is above the david. Enteric tube descends into the stomach. IMPRESSION: Significant increase in subcutaneous emphysema since prior study.
[2020-03-30 11:05] LABS: Rheumatoid Factor NEG (NEG)
--- NOTE | 2020-03-30 11:22 | P.PN ---
Subjective Date of Service: 03/30/20 Primary Care Provider: Blake Chief Complaint: Respiratory failure Patient has developed significant amount of subcutaneous emphysema is the peep was increased yesterday due to hypoxemia Review of Systems is unable to be obtained Physical Examination - Vital Signs Temperature: 97.1 F Blood Pressure: 93/50 Pulse: 92 Respirations: 30 Pulse Ox (%): 95 - Physical Exam General: Unresponsive Respiratory: Other (Patient has significant subcutaneous emphysema extending throughout the chest and is face) Cardiovascular: No edema, Normal S1 S2 Other Physical/Emotional Findings: Patient remains intubated - Studies Medications List Reviewed: Yes Assessment & Plan - Problems (Diagnosis) (1) Pneumonia due to COVID-19 virus Current Visit: Yes Status: Acute Plan: Plan to decrease the peep to 10 increase his FiO2 to 100% will hopefully help with the absorption of the subcutaneous emphysema still continues to remain thrombocytopenic significant hyper ferritin anemia sputum culture most likely contaminate to repeat a gain patient is on Rocephin and doxycycline explained to the son in detail advance endotracheal tube 1.5 cm
--- NOTE | 2020-03-30 12:22 | P.PN ---
Subjective Date of Service: 03/30/20 Primary Care Provider: Blake Chief Complaint: Respiratory failure Subjective Pt with COVID 19 respiratory failure, intubated, nephrology consulted for MERCED and hypernatremia Tody still on prone position High Bun , but cr stable corrected sodium ~136 ROS unable to provide Physical exam general: intubated prone position Neck; Supple, No elevated JVD hear: RRR, normal S1,2 no murmur or rub Chest: decreased air entry B/l Abdomen: Soft , Nt Extremities no swelling, emphysema over Rt shoulder A/P MERCED due to COVID 19, and barotrauma high Bun likely due to steroid cont lasix COVID 19 Intubated Acute respiratory failure intubated Subcutaneous emphysema Cont supportive care thrombocytopenia stable psuedohyponatremia BS control total time spent 40min Physical Examination - Vital Signs Temperature: 97.1 F Blood Pressure: 93/50 Pulse: 92 Respirations: 30 Pulse Ox (%): 95 - Physical Exam Other Physical/Emotional Findings: Patient remains intubated - Studies Medications List Reviewed: Yes
--- NOTE | 2020-03-30 16:14 | P.PN ---
Subjective Date of Service: 03/30/20 Primary Care Provider: Blake Chief Complaint: Respiratory failure Subjective: Other (Patient alert. Patient intubated) Physical Examination - Vital Signs Temperature: 97.1 F Blood Pressure: 85/52 Pulse: 68 Respirations: 30 Pulse Ox (%): 100 - Physical Exam General: Alert (To voice), Other (Patient intubated) HEENT: Other (Subcutaneous emphysema noted to the neck chest) Neck: Supple Respiratory: Clear to auscultation bilaterally Cardiovascular: Normal pulses Neurological: Other (Some of peripheral edema noted to the lower extremities) Other Physical/Emotional Findings: Patient remains intubated - Studies Medications List Reviewed: Yes Assessment & Plan Discharge Plan: Other (Long-term acute care facility placement) Plan to discharge in: Greater than 2 days Physician Review Additional Text: Impression: Acute hypoxic respiratory failure secondary to bilateral COVID 19 pneumonia Hyperglycemia secondary to pre diabetes and medication-solu Medrol Hypothyroidism Hyperlipidemia Thrombocytopenia Paroxysmally atrial fibrillation Plan: Acute hypoxic respiratory failure secondary to bilateral COVID 19 pneumonia with subcu emphysema and pneumomediastinum: Patient remains intubated. Patient alert off paralytic. Sedation being weaned off. Patient remains on ventilator. Patient on 100% FiO2 to help with subcutaneous emphysema. Pulmonology continued to make adjustments to medications. Sputum culture positive for Staph epidermidis. This is likely a contaminant. Will recheck sputum culture. Labs remained stable. Continue current treatment plan. Will discuss with ENT med anticipate probable trach sometime next week if patient remains on the ventilator. Hyperglycemia secondary to pre diabetes and medication Solu-Medrol: Continue to adjust Lantus for better blood sugar control. Pulmonology continues to adjust medication Hypothyroidism: Continue home medication. Hyperlipidemia: Continue home medication Thrombocytopenia reactive likely related to above: Case discussed with hematology. Continue supportive care. Paroxysmally atrial fibrillation: Amiodarone discontinued. Patient remains stable. Patient remains in sinus rhythm.. Anticoagulation therapy held due to thrombocytopenia. Time Spent Managing Pts Care (In Minutes): 55
[2020-03-30] MEDS ORDERED: VITAL HP 1,000 ML BOT RTH SCH (17:00)
[2020-03-30] MEDS: MELATONIN 3 MG TABLET PO SCH (21:00)
[2020-03-30] MEDS: ATORVASTATIN 20 MG TAB PO SCH (21:05)
[2020-03-30] MEDS ORDERED: MELATONIN 5 MG TABLET PO ONE (21:23)
[2020-03-31] MEDS: LORazepam 2 MG/ML VIAL IV PRN ×3 (01:20→18:22)
[2020-03-31 05:40] LABS: Blood Gas Oxyhemoglobin 91.8 % (94-97); Blood O2 Saturation 94.8 % (92-98.5)
[2020-03-31 05:49] LABS: Absolute Lymphocytes (CBC) 0.1 K/uL (0.7-4.9); Hematocrit 23.6 % (39.6-49.0); MPV 10.4 fL (7.6-11.3); RBC Red Blood Cell Count 2.51 M/uL (4.33-5.43)
[2020-03-31] MEDS: INSULIN -REGULAR HUMAN 50 UNIT/0.5 ML ML SQ SCH ×3 (06:00→17:40)
[2020-03-31] MEDS: LEVOTHYROXINE SOD 0.1 MG TAB PO SCH (06:06)
[2020-03-31 06:07] LABS: Albumin 1.8 g/dL (3.4-5.0); C-Reactive Protein 69.8 mg/L (<3.00); Ferritin 1720.2 ng/mL (26-388); Magnesium 2.4 mg/dL (1.8-2.4); Phosphorus 4.1 mg/dL (2.5-4.9); Potassium 4.1 mmol/L (3.5-5.1)
[2020-03-31] MEDS: ASCORBIC ACID 500 MG TABLET PO SCH ×3 (08:04→20:19)
[2020-03-31] MEDS: FAMOTIDINE 20 MG TAB PO SCH ×2 (08:04→20:19)
[2020-03-31] MEDS: FUROSEMIDE 40 MG/4 ML VIAL IV SCH (08:04)
[2020-03-31] MEDS: THIAMINE HCL 100 MG TABLET PO SCH (08:04)
[2020-03-31] MEDS: DOXYCYCLINE 100 MG CAP PO SCH ×2 (08:04→20:19)
[2020-03-31] MEDS: VITAMIN D 1000 UNIT TAB PO SCH (08:04)
[2020-03-31] MEDS: CEFTRIAXONE/SWI 1gm 1 GM/10 ML SYR IV SCH (08:08)
[2020-03-31] MEDS: METHYLPREDNISOLONE 40 MG INJ IV SCH ×2 (08:08→20:19)
[2020-03-31] MEDS: METOPROLOL TAR 25 MG TAB PO SCH ×2 (08:09→20:18)
[2020-03-31] MEDS: LACTOBACILLUS/ACIDOPHILUS TAB PO SCH ×3 (08:09→20:18)
--- NOTE | 2020-03-31 08:57 | RAD REPORT ---
EXAM DESCRIPTION: RAD - Chest Single View - 03/31/2020 7:14 am CLINICAL HISTORY: Pneumonia, intubation COMPARISON: March 30 TECHNIQUE: AP portable chest image was obtained 03/31/2020 7:14 am . FINDINGS: Endotracheal tube is unchanged in position. Feeding tube has been retracted. Tip is now in the distal esophagus. No additional tubes or lines identifiable. Cardiac leads overlie the chest. Interstitial and alveolar opacification is present. No clear change from prior imaging. The very pron ounced subcutaneous emphysema pattern has not changed significantly. No new or progressive pneumomedi astinum. No convincing evidence for air below the diaphragm. Heart and vasculature are normal. No measurable pneumothorax. No new or enlarging pleural fluid colle ction. No acute bony abnormality seen. No acute aortic findings suspected. IMPRESSION: Feeding tube has been retracted. Tip is now in the distal esophagus. Endotracheal tube is unchanged in position. Lung parenchymal opacification has not changed. The severe subcutaneous emphysema pattern also withou t substantial change.
[2020-03-31] MEDS: INSULIN GLARGINE 100 UNITS/ML SQ SCH ×2 (09:20→20:39)
[2020-03-31 10:13] LABS: Blood Morphology Comment NOT SEEN (NOT SEEN); Platelet Estimate DECR; White Blood Cell Scan OK (OK)
[2020-03-31] MEDS: FENTANYL CITR 100 MCG/2 ML IV PRN ×3 (11:11→20:45)
--- NOTE | 2020-03-31 12:22 | P.PN ---
Subjective Date of Service: 03/31/20 Primary Care Provider: Blake Chief Complaint: Respiratory failure Physical Examination - Vital Signs Temperature: 97.3 F Blood Pressure: 123/75 Pulse: 82 Respirations: 30 Pulse Ox (%): 97 - Physical Exam General: Other (patient remains intubated.) HEENT: Other (Subcu emphysema improved) Respiratory: Other (Patient intubated) Cardiovascular: Normal pulses Integumentary: Other (Edema slightly improved.) Neurological: Other (Patient alert to commands. More movement noted.) Other Physical/Emotional Findings: Patient remains intubated - Studies Medications List Reviewed: Yes Assessment & Plan Discharge Plan: LTAC Plan to discharge in: Greater than 2 days Physician Review Additional Text: Impression: Acute hypoxic respiratory failure secondary to bilateral COVID 19 pneumonia Hyperglycemia secondary to pre diabetes and medication-solu Medrol Hypothyroidism Hyperlipidemia Thrombocytopenia Paroxysmally atrial fibrillation Plan: Acute hypoxic respiratory failure secondary to bilateral COVID 19 pneumonia with subcu emphysema and pneumomediastinum: Patient remains intubated. Patient more alert and moving slightly. Patient follow some commands. Oxygen appears better. Patient on 90% Fi02 to help with subcutaneous emphysema. Inflammatory markers reviewed. Care discussed with pulmonology. No need to adjust steroid at this time. Continue monitor lab-CBC. Sputum culture positive for Staph epidermidis. This is likely a contaminant. Awaiting repeat sputum culture. Continue supportive care. Anticipate trach sometime next week. Will discuss with family. Hyperglycemia secondary to pre diabetes and medication Solu-Medrol: Continue to adjust Lantus for better blood sugar control. Pulmonology continues to adjust medication Hypothyroidism: Continue home medication. Hyperlipidemia: Continue home medication Thrombocytopenia reactive likely related to above: Case discussed with hematology. Continue supportive care. Paroxysmally atrial fibrillation: Amiodarone discontinued. Patient remains stable. Patient remains in sinus rhythm.. Anticoagulation therapy held due to thrombocytopenia. Time Spent Managing Pts Care (In Minutes): 55
--- NOTE | 2020-03-31 17:11 | P.PN ---
Subjective Date of Service: 03/31/20 Primary Care Provider: Blake Chief Complaint: Respiratory failure Subjective Pt with COVID 19 respiratory failure, intubated, nephrology consulted for MERCED and hypernatremia Tody still on prone position no change in clinical status Cr stable Cont lasix ROS unable to provide Physical exam general: intubated prone position Neck; Supple, No elevated JVD hear: RRR, normal S1,2 no murmur or rub Chest: decreased air entry B/l Abdomen: Soft , Nt Extremities no swelling, emphysema over Rt shoulder A/P MERCED due to COVID 19, and barotrauma high Bun likely due to steroid cont lasix COVID 19 Intubated Acute respiratory failure intubated Subcutaneous emphysema Cont supportive care thrombocytopenia cont to monitor psuedohyponatremia BS control total time spent 40min Physical Examination - Vital Signs Temperature: 97.3 F Blood Pressure: 148/91 Pulse: 83 Respirations: 30 Pulse Ox (%): 98 - Physical Exam Other Physical/Emotional Findings: Patient remains intubated - Studies Medications List Reviewed: Yes
[2020-03-31] MEDS: MIDAZOLAM HCL 2 MG/2 ML INJ IV PRN (18:22)
[2020-03-31] MEDS: ATORVASTATIN 20 MG TAB PO SCH (20:18)
[2020-03-31] MEDS: MELATONIN 3 MG TABLET PO SCH (20:19)
[2020-03-31] MEDS ORDERED: MELATONIN 5 MG TABLET PO ONE (20:31)
[2020-03-31] MEDS: D50W 25 GM/50 ML VIAL IV PRN (20:35)
[2020-04-01] MEDS: LORazepam 2 MG/ML VIAL IV PRN (00:45)
[2020-04-01] MEDS: FENTANYL CITR 100 MCG/2 ML IV PRN ×2 (03:17→10:35)
[2020-04-01] MEDS: MIDAZOLAM HCL 2 MG/2 ML INJ IV PRN ×2 (04:00→10:35)
[2020-04-01] MEDS: INSULIN -REGULAR HUMAN 50 UNIT/0.5 ML ML SQ SCH ×4 (05:31→17:18)
[2020-04-01] MEDS: LEVOTHYROXINE SOD 0.1 MG TAB PO SCH (05:32)
[2020-04-01 05:44] LABS: Absolute Lymphocytes (CBC) 0.1 K/uL (0.7-4.9); Basophils % 0.3 % (0-1.3); Hematocrit 21.8 % (39.6-49.0); Lymphocytes % 1.4 % (15.3-44.8); MPV 10.3 fL (7.6-11.3); RBC Red Blood Cell Count 2.29 M/uL (4.33-5.43)
[2020-04-01 05:58] LABS: Albumin 1.8 g/dL (3.4-5.0); C-Reactive Protein 58.8 mg/L (<3.00); Ferritin 1547.1 ng/mL (26-388); Phosphorus 3.6 mg/dL (2.5-4.9); Potassium 4.2 mmol/L (3.5-5.1)
[2020-04-01] MEDS: METHYLPREDNISOLONE 40 MG INJ IV SCH ×2 (08:50→20:40)
[2020-04-01] MEDS: CEFTRIAXONE/SWI 1gm 1 GM/10 ML SYR IV SCH (08:53)
[2020-04-01] MEDS: DOXYCYCLINE 100 MG CAP PO SCH ×2 (08:53→20:43)
[2020-04-01] MEDS: METOPROLOL TAR 25 MG TAB PO SCH ×2 (08:53→20:41)
[2020-04-01] MEDS: VITAMIN D 1000 UNIT TAB PO SCH (08:53)
[2020-04-01] MEDS: FAMOTIDINE 20 MG TAB PO SCH ×2 (08:54→20:42)
[2020-04-01] MEDS: LACTOBACILLUS/ACIDOPHILUS TAB PO SCH ×3 (08:54→20:40)
[2020-04-01] MEDS: INSULIN GLARGINE 100 UNITS/ML SQ SCH ×2 (08:54→20:41)
[2020-04-01] MEDS: ASCORBIC ACID 500 MG TABLET PO SCH ×3 (08:54→20:43)
[2020-04-01] MEDS: FUROSEMIDE 40 MG/4 ML VIAL IV SCH (08:54)
[2020-04-01] MEDS: THIAMINE HCL 100 MG TABLET PO SCH (08:54)
[2020-04-01] MEDS ORDERED: NA CHLORIDE 0.9% 100 ML ONE ×2 (09:51→13:53)
--- NOTE | 2020-04-01 11:47 | RAD REPORT ---
EXAM DESCRIPTION: RAD - Chest Single View - 04/01/2020 7:49 am CLINICAL HISTORY: Pneumonia Chest pain. COMPARISON: Chest Single View dated 03/31/2020; Chest Single View dated 03/30/2020; Chest Single View da qamar 03/29/2020; Chest Single View dated 03/28/2020 FINDINGS: Portable technique limits examination quality. A large amount of subcutaneous emphysema is again seen. Tip of the endotracheal tube is above the car sujatha. Enteric tube descends into the upper abdomen. Pneumomediastinum is again seen, similar prior ramone dy.Bilateral pulmonary opacities appear slightly progressive since the comparative study. IMPRESSION: Slight worsening in lung aeration is seen since comparative study.
--- NOTE | 2020-04-01 11:47 | P.PN ---
Subjective Date of Service: 04/01/20 Primary Care Provider: Blake Chief Complaint: Respiratory failure Patient is stable subcutaneous emphysema is decreasing patient's ferritin level is declining Review of Systems is unable to be obtained Physical Examination - Vital Signs Temperature: 97.5 F Blood Pressure: 121/66 Pulse: 57 Respirations: 30 Pulse Ox (%): 94 - Physical Exam General: Unresponsive, Comatose Respiratory: Diminished, Other (Subcutaneous emphysema) Cardiovascular: No edema, Normal S1 S2, Edema (Lower extremity edema) Other Physical/Emotional Findings: Patient remains intubated - Studies Medications List Reviewed: Yes Assessment & Plan - Problems (Diagnosis) (1) Pneumonia due to COVID-19 virus Current Visit: Yes Status: Acute Plan: Respiratory failure condition stable oxygenation seems to be improving repeat ABGs thrombocytopenia stable/No change/BUJN i s mildly elevated
--- NOTE | 2020-04-01 12:37 | P.PN ---
Subjective Date of Service: 04/06/20 Primary Care Provider: Blake Chief Complaint: Respiratory failure Subjective Pt with COVID 19 respiratory failure, intubated, nephrology consulted for MERCED and hypernatremia Today no change in clinical status BUn elevated but stable Plan for 2 PRBC today cont lasix ROS unable to provide Physical exam general: intubated prone position Neck; Supple, No elevated JVD hear: RRR, normal S1,2 no murmur or rub Chest: decreased air entry B/l Abdomen: Soft , Nt Extremities +1 edema , emphysema over Rt shoulder A/P MERCED due to COVID 19, and barotrauma high Bun likely due to steroid cont lasix COVID 19 Intubated Acute respiratory failure intubated Subcutaneous emphysema Cont supportive care thrombocytopenia cont to monitor psuedohyponatremia BS control edema Cont lasix total time spent 40min Physical Examination - Vital Signs Temperature: 97.5 F Blood Pressure: 121/66 Pulse: 57 Respirations: 30 Pulse Ox (%): 94 - Physical Exam Other Physical/Emotional Findings: Patient remains intubated - Studies Medications List Reviewed: Yes
[2020-04-01] MEDS: FUROSEMIDE 20 MG/ 2ML VIAL IV PRN ×2 (12:59→16:14)
--- NOTE | 2020-04-01 12:59 | P.PN ---
Subjective Date of Service: 04/01/20 Primary Care Provider: Blake Chief Complaint: Respiratory failure Physical Examination - Vital Signs Temperature: 97.5 F Blood Pressure: 121/66 Pulse: 57 Respirations: 30 Pulse Ox (%): 94 - Physical Exam Other Physical/Emotional Findings: Patient remains intubated - Studies Medications List Reviewed: Yes Assessment & Plan Discharge Plan: LTAC Plan to discharge in: Greater than 2 days Physician Review Additional Text: Impression: Acute hypoxic respiratory failure secondary to bilateral COVID 19 pneumonia Hyperglycemia secondary to pre diabetes and medication-solu Medrol Hypothyroidism Hyperlipidemia Thrombocytopenia Paroxysmally atrial fibrillation Anemia of chronic disease Plan: Acute hypoxic respiratory failure secondary to bilateral COVID 19 pneumonia with subcu emphysema and pneumomediastinum: Patient remains intubated. Patient moving more and following commands. Patient on 80% Fi02. Hemoglobin low. Patient will get transfused blood. Continue to wean off ventilator. Case discussed in detail with nephrology and pulmonology. Patient will likely require trach later this week. Will discuss with ENT. Continue current management. Will discuss with family. I will turn the service over to the hospitalist team tomorrow. I will go over plan of care with him. Hyperglycemia secondary to pre diabetes and medication Solu-Medrol: Continue to adjust Lantus for better blood sugar control. Pulmonology continues to adjust medication Hypothyroidism: Continue home medication. Hyperlipidemia: Continue home medication Thrombocytopenia reactive likely related to above: Case discussed with hematology. Continue supportive care. Paroxysmally atrial fibrillation: Amiodarone discontinued. Patient remains stable. Patient remains in sinus rhythm.. Anticoagulation therapy held due to thrombocytopenia. Anemia of chronic disease: No bleeding noted. Anemia likely related to above. Patient will be transfuse. Maintain hemoglobin above 8.0. Will monitor closely. Time Spent Managing Pts Care (In Minutes): 55
[2020-04-01] MEDS: HYDROMORPHONE HCL 2 MG/ML inj IV PRN ×2 (14:33→22:53)
[2020-04-01 17:02] LABS: Hematocrit 27.8 % (39.6-49.0)
[2020-04-01] MEDS: ATORVASTATIN 20 MG TAB PO SCH (20:40)
[2020-04-01] MEDS: MELATONIN 3 MG TABLET PO SCH (20:42)
[2020-04-01] MEDS ORDERED: MELATONIN 5 MG TABLET PO ONE (20:49)
[2020-04-02] MEDS: INSULIN -REGULAR HUMAN 50 UNIT/0.5 ML ML SQ SCH ×5 (00:35→23:58)
[2020-04-02] MEDS: MIDAZOLAM HCL 2 MG/2 ML INJ IV PRN ×2 (02:06→23:57)
[2020-04-02] MEDS: LORazepam 2 MG/ML VIAL IV PRN ×3 (03:59→17:42)
[2020-04-02] MEDS: HYDROMORPHONE HCL 2 MG/ML inj IV PRN ×5 (04:10→20:52)
[2020-04-02 05:50] LABS: Absolute Lymphocytes (CBC) 0.1 K/uL (0.7-4.9); Basophils % 0.1 % (0-1.3); Hematocrit 27.6 % (39.6-49.0); MPV 10.2 fL (7.6-11.3); RBC Red Blood Cell Count 2.98 M/uL (4.33-5.43)
[2020-04-02 06:16] LABS: Albumin 1.8 g/dL (3.4-5.0); Potassium 3.9 mmol/L (3.5-5.1)
[2020-04-02] MEDS: LEVOTHYROXINE SOD 0.1 MG TAB PO SCH (06:30)
[2020-04-02 06:42] LABS: Arterial Blood Carboxyhemoglob 2.2 % (0-1.5); Blood Gas Oxyhemoglobin 89.4 % (94-97); Blood O2 Saturation 92.4 % (92-98.5)
[2020-04-02] MEDS: CEFTRIAXONE/SWI 1gm 1 GM/10 ML SYR IV SCH (07:44)
[2020-04-02] MEDS: VITAMIN D 1000 UNIT TAB PO SCH (07:45)
[2020-04-02] MEDS: THIAMINE HCL 100 MG TABLET PO SCH (07:45)
[2020-04-02] MEDS: LACTOBACILLUS/ACIDOPHILUS TAB PO SCH ×3 (07:45→20:24)
[2020-04-02] MEDS: FAMOTIDINE 20 MG TAB PO SCH ×2 (07:45→20:26)
[2020-04-02] MEDS: ASCORBIC ACID 500 MG TABLET PO SCH ×3 (07:45→20:27)
[2020-04-02] MEDS: METHYLPREDNISOLONE 40 MG INJ IV SCH ×2 (07:45→20:24)
[2020-04-02] MEDS: FUROSEMIDE 40 MG/4 ML VIAL IV SCH (07:46)
[2020-04-02] MEDS: METOPROLOL TAR 25 MG TAB PO SCH ×2 (07:46→20:25)
[2020-04-02] MEDS: INSULIN GLARGINE 100 UNITS/ML SQ SCH ×2 (07:46→20:26)
[2020-04-02] MEDS: DOXYCYCLINE 100 MG CAP PO SCH ×2 (07:48→20:25)
--- NOTE | 2020-04-02 08:17 | RAD REPORT ---
EXAM DESCRIPTION: Latanya Single View04/02/2020 7:53 am CLINICAL HISTORY: Shortness of breath COMPARISON: April 02 FINDINGS: No significant change in diffuse bilateral pulmonary opacities, pneumomediastinum and subc utaneous emphysema The endotracheal tube with its tip well above the david. PICC line in place. Feeding tube coiled wit hin the gastric fundus
--- NOTE | 2020-04-02 09:05 | CON ---
Date of Consultation: 04/02/2020 Chief Complaint/reason For Consultation: Tracheostomy placement. History Of Present Illness: Mr. Diaz is a 74-year-old male, who had a positive COVID test on Feb. He called the EMS service due to shortness of breath and was brought to the emergency ro om on March 08. He was initially treated on the floor with supplemental oxygen, but clinically worsened and is transferred to the ICU. He was treated with remdesivir, IV steroids, albuterol, zinc , and vitamin C. He had a significantly elevated CRP and was placed on anticoagulation for prophylax is. The patient then required use of BiPAP with 40% FiO2 starting on hospital day 1. He was subsequ ently having increased oxygen requirements and was placed on BiPAP at 75% to 100% of fractionated oxy gen with saturations in the low 90s around March 14. He subsequently required endotracheal intu bation due to worsening respiratory status on March 18. He has been continuously requiring [facility] anical ventilation with high levels of fractionated oxygen in the 80% to 100%. Today represents intu bation day 15. Early last week, the patient was requiring prone positioning to improve oxygenation. Past Medical History: Nephrotic syndrome, hypertension, hypothyroidism, and history of knee surgery. Review of Systems: Unable to obtain. Allergies: NONSTEROIDAL ANTI-INFLAMMATORIES, LIKELY DUE TO HISTORY OF KIDNEY ISSUES AND COUMADIN. Current Medications: Acetaminophen, vitamin C, Lipitor, ceftriaxone, vitamin D, tube feeds, Pepcid, Lasix, Haldol, Dilaudid, insulin sliding scale, levothyroxine, lorazepam, melatonin, Solu-Medrol, met oprolol, Versed, propofol, thiamin. Review Of Data: Patient is noted to have significant and persistent thrombocytopenia since March 19. On admission, platelet count was normal. Most recently, it has been in the range of 22,000 to 25,000. The patient's white count has been normal over the last 72 hours but was previously highly elevated. The patient had a significantly elevated D-dimer around New Year's, which was decreasing, but the last measurement on March 24 remained highly elevated at 4651. His last C-reactive protei n on April 01, 2020, was elevated at 58. Additional data, chest x-ray performed on April 01, indicates slight worsening of lung aeration compared to recent studies with a large amount of subc utaneous emphysema and pneumomediastinum, similar to prior studies. Physical Examination: In-person physical exam is not performed at this time, but review of the chart indicates the patient' s blood pressure has been relatively stable without significant hypotension. His pulses have been in the low normal range. His oxygen saturations have been normal. The patient was on 100% FiO2 on Mar. He was able to wean to 80% FiO2 on the and 01 of April but overnight was requiring increased oxygen and is currently at 90% FiO2 ventilator settings currently demonstrates support mod e AC, respiratory rate 30, FiO2 of 90%, PEEP 10. Assessment: COVID-19 pneumonia, prolonged intubation, prolonged mechanical ventilation, thrombocytop enia. Plan And Recommendations: At this time, given the recent worsening of the chest x-ray and increased oxygen requirements overnight in combination with the overall risks of surgery including thrombocytop enia, I recommend deferring tracheostomy for a period of time and reassessing the patient at a regula r interval. To safely perform a tracheostomy, the patient must be able to tolerate 30 to 60 seconds of apnea, which I am unsure that he would do at this time. If the patient's thrombocytopenia persist s, but his respiratory status is improving and stabilized, we can proceed with tracheostomy with plan for perioperative platelet transfusion. I will continue to follow this patient along with you. JENA Voice ID: [id number] Report ID: [id number]
[2020-04-02 09:40] LABS: Blood Gas Oxyhemoglobin 78.1 % (94-97); Blood O2 Saturation 80.5 % (92-98.5)
[2020-04-02 09:42] LABS: Anisocytosis 1+; Basophilic Stippling 1+; Blood Morphology Comment NOTED (NOT SEEN); Platelet Estimate DECR; White Blood Cell Scan OK (OK)
[2020-04-02 10:27] LABS: Hepatitis C Virus RNA (PCR)log <1.18 log IU/mL
--- NOTE | 2020-04-02 11:11 | RAD REPORT ---
EXAM DESCRIPTION: RAD - Chest Single View - 04/01/2020 10:46 pm Chest Single View CLINICAL HISTORY: S/P PICC insertion COMPARISON: Report from 04/01/2020 FINDINGS: Single frontal view of the chest. Tubes and lines: NG tube with tip below the diaphragm. Right arm PICC with tip at the atriocaval junc tion. Leads overlie the chest. Cardiomediastinal silhouette: Stable pneumomediastinum. Lungs: Diffuse chest wall soft tissue air. No definite pneumothorax. Diffuse airspace opacities. Bones: Degenerative change of the spine. Upper abdomen: No acute abnormality. IMPRESSION: 1. Right arm PICC in appropriate position. 2. Pneumomediastinum with diffuse chest wall air again identified. 3. Diffuse bilateral interstitial and airspace opacities concerning for pneumonia. Electronically signed by: Anjum Solomon 04/01/2020 10:55 PM DIRECTOR [employer]AF[employer]Y Due to temporary technical issues with the PACS/Fluency reporting system, reports are being signed by the in house radiologists without review as a courtesy to insure prompt reporting. The interpreting radiologist is fully responsible for the content of the report.
[2020-04-02] MEDS ORDERED: ALBUMIN HUMAN 25% 100 ML IV ONE (12:10)
[2020-04-02] MEDS ORDERED: FUROSEMIDE 40 MG/4 ML VIAL IV ONE (12:12)
--- NOTE | 2020-04-02 12:33 | P.PN ---
Subjective Date of Service: 04/02/20 Primary Care Provider: Blake Chief Complaint: Respiratory failure His oxygen is better on little bit higher levels of peep still has significant subcutaneous emphysema Review of Systems is unable to be obtained Physical Examination - Vital Signs Temperature: 97.0 F Blood Pressure: 156/64 Pulse: 75 Respirations: 25 Pulse Ox (%): 90 - Physical Exam General: Unresponsive Respiratory: Other (Significant subcutaneous emphysema) Other Physical/Emotional Findings: Patient remains intubated - Studies Medications List Reviewed: Yes Assessment & Plan - Problems (Diagnosis) (1) Pneumonia due to COVID-19 virus Current Visit: Yes Status: Acute Plan: Respiratory failure significant subcutaneous emphysema patient is still thrombocytopenic still requiring high concentrations of oxygen
--- NOTE | 2020-04-02 12:59 | RAD REPORT ---
EXAM DESCRIPTION: RAD - Abdomen 1 View (KUB) - 04/02/2020 12:49 pm CLINICAL HISTORY: dobhoff placement Pain COMPARISON: Abdomen 1 View (KUB) dated 03/19/2020; Abdomen 1 View (KUB) dated 03/19/2020; Abdomen 1 View (KUB) dated 03/18/2020 FINDINGS: Tip of the enteric tube is in stomach.
[2020-04-02] MEDS: D50W 25 GM/50 ML VIAL IV PRN (17:13)
[2020-04-02] MEDS: JUVEN PACKET PO SCH (20:24)
[2020-04-02] MEDS: MELATONIN 3 MG TABLET PO SCH (20:24)
[2020-04-02] MEDS: ATORVASTATIN 20 MG TAB PO SCH (20:24)
[2020-04-02] MEDS ORDERED: MELATONIN 5 MG TABLET PO ONE (20:35)
--- NOTE | 2020-04-02 21:56 | PN ---
Date of Progress Note: 04/02/2020 Chief Complaint: Acute on chronic kidney injury, high BUN and creatinine ratio. History Of Present Illness: Renal function has not improved over the last 24 hours. Nephrology was consulted for acute kidney injury and hypernatremia. The patient is in ICU. The patient has respira tory failure due to COVID. He remains intubated. The patient is on Lasix for volume control. He received 2 units of packed red blood cells transfusio n. Review of Systems: Unable to obtain. The patient is intubated. Physical Examination: Lungs: Clear to auscultation bilaterally. Extremities: 1+ edema. Heart: S1, S2. Impression And Plan: Acute kidney injury due to COVID-19 infection and high BUN and creatinine ratio secondary to prerenal azotemia and steroid effect. Continue Lasix for volume control. The patient has some fluid overload, peripheral edema. He has respiratory failure due to COVID pneumonia. He re west intubated. Monitor electrolytes and adjust treatment with electrolyte replacement when the pat ient is on Lasix. Plan is to continue to monitor renal panel and magnesium level. EB/MODL Voice ID: [id number] Report ID: [id number]
[2020-04-02 22:09] LABS: Albumin, (SPE) 2.5 g/dL (3.8-4.8); Alpha-1-Globulins 0.4 g/dL (0.2-0.3); Alpha-2-Globulins 0.5 g/dL (0.5-0.9); Gamma Globulins 0.4 g/dL (0.8-1.7); INTERPRETATION REPORT
[2020-04-03] MEDS: LORazepam 2 MG/ML VIAL IV PRN ×2 (00:56→08:29)
[2020-04-03] MEDS: HYDROMORPHONE HCL 2 MG/ML inj IV PRN ×2 (00:56→06:26)
[2020-04-03 05:00] LABS: Blood Gas Oxyhemoglobin 70.7 % (94-97); Blood O2 Saturation 73.2 % (92-98.5)
[2020-04-03 06:03] LABS: Arterial Blood Carboxyhemoglob 2.3 % (0-1.5); Blood Gas Oxyhemoglobin 76.7 % (94-97); Blood O2 Saturation 79.3 % (92-98.5)
[2020-04-03 06:09] LABS: Absolute Lymphocytes (CBC) 0.1 K/uL (0.7-4.9); Basophils % 0.4 % (0-1.3); Hematocrit 27.6 % (39.6-49.0); MPV 9.8 fL (7.6-11.3); RBC Red Blood Cell Count 2.95 M/uL (4.33-5.43)
[2020-04-03] MEDS: LEVOTHYROXINE SOD 0.1 MG TAB PO SCH (06:26)
[2020-04-03] MEDS: INSULIN -REGULAR HUMAN 50 UNIT/0.5 ML ML SQ SCH ×3 (06:26→18:20)
--- NOTE | 2020-04-03 06:36 | P.PN ---
Date of Service: 04/03/20 Patient now intubation day 16 but requiring 100% FiO2 to maintain oxygen saturation. Will reassess later this week.
[2020-04-03 06:44] LABS: Albumin 2.4 g/dL (3.4-5.0); Bilirubin Total 1.8 mg/dL (0.2-1.0); C-Reactive Protein 44.1 mg/L (<3.00); Ferritin 1489.5 ng/mL (26-388); Magnesium 2.5 mg/dL (1.8-2.4); Potassium 4.1 mmol/L (3.5-5.1); Protein, Total 4.9 g/dL (6.4-8.2)
--- NOTE | 2020-04-03 07:39 | RAD REPORT ---
EXAM DESCRIPTION: RAD - Chest Single View - 04/03/2020 6:16 am CLINICAL HISTORY: ventedrespiratory distress COMPARISON: April 02 TECHNIQUE: AP portable chest image was obtained 04/03/2020 6:16 am . FINDINGS: Bilateral lung parenchymal opacification noted not substantially different from comparison . Increased opacification at the right base may be the affects of significant patient rotation. Bilat eral costophrenic angle blunting is more evident on the current examination. Cardiomediastinal silhouette including pneumomediastinum unchanged. Extensive subcutaneous emphysema also without clear change. ET tube in good position top of the aortic arch. Enteric tube extends below the diaphragm, off the fi eld of view. No pneumothorax is identified. IMPRESSION: As detailed above, chest is not substantially different from comparison.
[2020-04-03] MEDS: LACTOBACILLUS/ACIDOPHILUS TAB PO SCH ×3 (08:17→20:19)
[2020-04-03] MEDS: THIAMINE HCL 100 MG TABLET PO SCH (08:17)
[2020-04-03] MEDS: METHYLPREDNISOLONE 40 MG INJ IV SCH ×2 (08:17→20:20)
[2020-04-03] MEDS: ASCORBIC ACID 500 MG TABLET PO SCH ×3 (08:17→20:19)
[2020-04-03] MEDS: CEFTRIAXONE/SWI 1gm 1 GM/10 ML SYR IV SCH (08:17)
[2020-04-03] MEDS: FUROSEMIDE 40 MG/4 ML VIAL IV SCH (08:17)
[2020-04-03] MEDS: DOXYCYCLINE 100 MG CAP PO SCH ×2 (08:17→20:23)
[2020-04-03] MEDS: VITAMIN D 1000 UNIT TAB PO SCH (08:18)
[2020-04-03] MEDS: JUVEN PACKET PO SCH ×2 (08:18→20:24)
[2020-04-03] MEDS: METOPROLOL TAR 25 MG TAB PO SCH ×2 (08:18→20:20)
[2020-04-03] MEDS: FAMOTIDINE 20 MG TAB PO SCH ×2 (08:18→20:19)
[2020-04-03] MEDS: INSULIN GLARGINE 100 UNITS/ML SQ SCH ×2 (08:18→20:37)
[2020-04-03 08:24] LABS: Anisocytosis 1+; Basophilic Stippling 1+; Blood Morphology Comment NOTED (NOT SEEN); Platelet Estimate DECR; White Blood Cell Scan OK (OK)
[2020-04-03] MEDS: propofoL 1,000 MG/100 ML VIAL IV PRN ×2 (08:40→20:39)
--- NOTE | 2020-04-03 08:58 | P.PN ---
Subjective Date of Service: 04/02/20 Chief Complaint: Respiratory failure Spoke with family regarding prognosis. Anasarca with and cool extremities noted. Appreciate consultation by ENT. Hopefully, we can get trach placed over the next 48-72 hr. Platelet transfusion as needed. Continue to monitor closely. Review of Systems is unable to be obtained Physical Examination - Vital Signs Temperature: 97.4 F Blood Pressure: 128/69 Pulse: 67 Respirations: 15 Pulse Ox (%): 94 - Physical Exam General: Other (Intubated and partially sedated. He blinks & keeps his eyes open at this time) Respiratory: Other Gastrointestinal: Normal bowel sounds, Soft and benign, Non-distended Musculoskeletal: No clubbing, No swelling Neurological: Normal strength at 5/5 x4 extr, Normal tone, Sensation intact, Cranial nerves 3-12 intact Other Physical/Emotional Findings: Patient remains intubated - Studies Medications List Reviewed: Yes Assessment & Plan - Problems (Diagnosis) (1) Acute respiratory failure due to COVID-19 Current Visit: Yes Status: Acute (2) Hypoxia Current Visit: Yes Status: Acute (3) Thrombocytopenia Current Visit: Yes Status: Acute (4) Leukocytosis Current Visit: Yes Status: Acute (5) Renal insufficiency Current Visit: Yes Status: Acute (6) History of minimal change disease Current Visit: Yes Status: Acute (7) Atrial fibrillation with rapid ventricular response Current Visit: Yes Status: Acute (8) Hypermagnesemia Current Visit: Yes Status: Acute - Plan Continue with plan of care as mentioned below: 1. Continue with IV antibiotics and IV steroids; increase free water because of elevated sodium but have decreased it as sodium has improved; remains on high- dose [id number] 125 mg IV Q 8 hr; this was tapered down from prior dosing of 250 mg IV Q 8 2. status post remdesivir treatment 3. Amiodarone drip; appreciate Cardiology assistance; monitor LFTs 4. Ventilation management per Pulmonary 5. Attempted transfer [facility] but they are at capacity as are all of their facilities 6. Will continue with neb treatments as tolerated 7. Monitor renal function closely 8. Monitor inflammatory markers & additional studies to monitor patient's clinical picture closely 9. Chest x-ray with no substantial improvement 10. GI and DVT prophylaxis - Advance Directives Does patient have a Living Will: No Does patient have a Durable POA for Healthcare: No - Code Status/Comfort Care Code Status: Full Code
[2020-04-03 11:08] LABS: HIV AG/AB 4TH GEN Non-reactive (Non-reactive)
--- NOTE | 2020-04-03 11:31 | P.PN ---
Subjective Date of Service: 04/04/20 Primary Care Provider: Blake Chief Complaint: Respiratory failure Ms. slight improvement in patient's oxygenation the cutaneous emphysema seems to have decreased tolerating prone position ventilation Review of Systems Unremarkable Physical Examination - Vital Signs Temperature: 97.4 F Blood Pressure: 112/46 Pulse: 51 Respirations: 27 Pulse Ox (%): 93 - Physical Exam General: Unresponsive Respiratory: Other (Patient has significant subcutaneous emphysema) Other Physical/Emotional Findings: Patient remains intubated - Studies Medications List Reviewed: Yes Assessment & Plan - Problems (Diagnosis) (1) Pneumonia due to COVID-19 virus Current Visit: Yes Status: Acute Plan: Respiratory failure continue prone positioning patient has permissive hypercapnia is requiring paralytics and sedation change to IV Diamox Dc Lasix patient still has thrombocytopenia sputum cultures negative patient is on Rocephin and doxycycline peep of 10 unable to increase due to worsening of subcutaneous emphysema labs blood gases all reviewed
--- NOTE | 2020-04-03 15:18 | PN ---
Date of Progress Note: 04/03/2020 Subjective: The patient was admitted with COVID pneumonia, respiratory failure. The patient is on vent. The patient in anasarca. The patient in prone position. Physical Examination: Vital Signs: Blood pressure 112/46, pulse of 56, afebrile. The patient had urine output of 2000, negative of 300. Chest: Crackles bilateral. Subcutaneous emphysema. Extremities: Edema, upper extremity subcutaneous emphysema. Neuro: The patient is on vent, sedated, prone position. Laboratory Data: WBC 7.5, H and H 9.3/27.6, platelet 18. Sodium 138, potassium 4.1, bicarb 40, BUN 76, creatinine 0.8. Glucose 262, phosphorus 4. Ferritin 1489. BNP 1820. Chest x-ray done today showing interstitial infiltration, subcutaneous emphysema. Current Medications: The patient on include; 1. Ceftriaxone. 2. Doxycycline. 3. Atorvastatin. 4. Metoprolol. 5. Lasix 40 daily. 6. Insulin. 7. Melatonin. Assessment And Plan: 1. Acute kidney injury secondary to COVID nephropathy, recovered, still on the over volume side. We will continue diuresis. We will give extra dose of Lasix. I am going to decrease free water. 2. Hypernatremia, resolved. Currently, hyponatremia. I am going to decrease the free water to 50 every 6 hours. Continue diuresis. 3. Hypertension, controlled, optimal. 4. Hypocalcemia. We will send for PTH, vitamin D. Currently corrected calcium on the normal side 9.6. We will continue supplement. 5. COVID pneumonia. Continue follow up with Pulmonary. Continue vent support. 6. Alkalosis secondary to hypercapnic respiratory acidosis. We will continue to monitor. Time spent discussing with the patient, [id number], using the translation, discussing with the staff and placing an order, discussing with over subspecialty and hospitalist 45 minutes. DYLAN Voice ID: [id number] Report ID: [id number] GABRIELA
[2020-04-03 17:32] LABS: Arterial Blood Carboxyhemoglob 2.3 % (0-1.5); Blood Gas Oxyhemoglobin 84.5 % (94-97); Blood O2 Saturation 87.6 % (92-98.5)
[2020-04-03] MEDS: ATORVASTATIN 20 MG TAB PO SCH (20:19)
[2020-04-03] MEDS: MELATONIN 3 MG TABLET PO SCH (20:22)
[2020-04-04] MEDS: INSULIN -REGULAR HUMAN 50 UNIT/0.5 ML ML SQ SCH ×4 (00:27→17:49)
[2020-04-04] MEDS: propofoL 1,000 MG/100 ML VIAL IV PRN ×5 (02:00→21:09)
[2020-04-04 05:31] LABS: Absolute Lymphocytes (CBC) 0.1 K/uL (0.7-4.9); Basophils % 0.1 % (0-1.3); Hematocrit 26.8 % (39.6-49.0); Lymphocytes % 1.1 % (15.3-44.8); MPV 9.7 fL (7.6-11.3); RBC Red Blood Cell Count 2.83 M/uL (4.33-5.43)
[2020-04-04 05:41] LABS: Blood O2 Saturation 86.5 % (92-98.5)
[2020-04-04 05:42] LABS: Arterial Blood Carboxyhemoglob 2.1 % (0-1.5); Blood Gas Oxyhemoglobin 83.7 % (94-97); Uric Acid 2.9 mg/dL (3.5-7.2)
[2020-04-04 05:46] LABS: ALT/SGPT 58 U/L (12-78); AST/SGOT 38 U/L (15-37); Albumin 2.2 g/dL (3.4-5.0); Alkaline Phosphatase 87 U/L (45-117); BUN Blood Urea Nitrogen 86 mg/dL (7-18); Bilirubin Total 1.1 mg/dL (0.2-1.0); Ferritin 1576.8 ng/mL (26-388); Glucose Level 254 mg/dL (74-106); Magnesium 2.5 mg/dL (1.8-2.4); Potassium 3.9 mmol/L (3.5-5.1); Protein, Total 4.7 g/dL (6.4-8.2); Sodium Level 139 mmol/L (136-145)
[2020-04-04 05:49] VITALS: BMI 28.9
[2020-04-04 05:53] LABS: Bicarbonate 43 mmol/L (21-32)
[2020-04-04] MEDS: LEVOTHYROXINE SOD 0.1 MG TAB PO SCH (05:56)
--- NOTE | 2020-04-04 08:57 | RAD REPORT ---
EXAM DESCRIPTION: RAD - Chest Single View - 04/04/2020 6:54 am CLINICAL HISTORY: covid Chest pain. COMPARISON: Chest Single View dated 04/03/2020; Abdomen 1 View (KUB) dated 04/02/2020; Chest Single Vi ew dated 04/02/2020; Chest Single View dated 04/01/2020 FINDINGS: Portable technique limits examination quality. Extensive bilateral pulmonary opacities are again seen, slightly progressive since the comparative st udy. Tip of the endotracheal tube is above the david. Enteric tube descends into the stomach. Right- sided PICC line is stable in position. Extensive subcutaneous emphysema again noted. Mild pneumoperit oneum, stable. IMPRESSION: Slight progression in bilateral pulmonary opacities since 04/03/2020.
--- NOTE | 2020-04-04 09:29 | P.PN ---
Subjective Date of Service: 04/03/20 Patient prognosis remains poor. Significant subcutaneous emphysema to the chest arms and neck region. Patient continues to have significant thrombocytopenia. Arterial oxygen has been very low. Waiting for patient's oxygenation to improve so trach can possibly be placed. Platelets on hold. Chest x-ray does not show any significant improvement. Patient remains edematous. Continue with diuresing. Continue with antibiotics. Monitor albumin level. Review of Systems is unable to be obtained Physical Examination - Vital Signs Temperature: 97.0 F Blood Pressure: 105/43 Pulse: 58 Respirations: 16 Pulse Ox (%): 92 - Physical Exam General: Confused, Other (Intubated and sedated) Respiratory: Diminished, Expiratory wheezes Cardiovascular: Regular rate/rhythm, Normal S1 S2, No murmurs Gastrointestinal: Normal bowel sounds, Soft and benign, Non-distended, No tenderness Musculoskeletal: No clubbing, Swelling Neurological: Sensation intact, Cranial nerves 3-12 intact Other Physical/Emotional Findings: Patient remains intubated - Studies Medications List Reviewed: Yes Assessment & Plan - Problems (Diagnosis) (1) Acute respiratory failure due to COVID-19 Current Visit: Yes Status: Acute (2) Hypoxia Current Visit: Yes Status: Acute (3) Thrombocytopenia Current Visit: Yes Status: Acute (4) Leukocytosis Current Visit: Yes Status: Acute (5) Renal insufficiency Current Visit: Yes Status: Acute (6) History of minimal change disease Current Visit: Yes Status: Acute (7) Atrial fibrillation with rapid ventricular response Current Visit: Yes Status: Acute (8) Hypermagnesemia Current Visit: Yes Status: Acute (9) Pneumomediastinum Current Visit: Yes Status: Acute (10) Subcutaneous emphysema Current Visit: Yes Status: Acute - Plan Continue with plan of care as mentioned below: 1. Planning on doing a tracheostomy whenever patient stabilizes. 2. Monitor platelet count 3. Hopefully inflammation improves so his oxygenation can improve 4. Continue with gentle diuresing. Monitor metabolic alkalosis. 5. Patient's hypoxemia is not really improving. Will need to keep patient prone as much as possible 6. May need to continue with nebs as needed 7. Continue with IV steroids 8. GI and DVT prophylaxis Discharge Plan: Home Plan to discharge in: Greater than 2 days - Advance Directives Does patient have a Living Will: No Does patient have a Durable POA for Healthcare: No - Code Status/Comfort Care Code Status: Full Code Critical Care: Yes Time Spent Managing PTS Care (In Minutes): 35
[2020-04-04] MEDS: FUROSEMIDE 40 MG/4 ML VIAL IV SCH (10:14)
[2020-04-04] MEDS: THIAMINE HCL 100 MG TABLET PO SCH (10:16)
[2020-04-04] MEDS: FAMOTIDINE 20 MG TAB PO SCH ×2 (10:16→20:24)
[2020-04-04] MEDS: METHYLPREDNISOLONE 40 MG INJ IV SCH ×2 (10:16→20:26)
[2020-04-04] MEDS: VITAMIN D 1000 UNIT TAB PO SCH (10:16)
[2020-04-04] MEDS: LACTOBACILLUS/ACIDOPHILUS TAB PO SCH ×3 (10:16→20:23)
[2020-04-04] MEDS: ASCORBIC ACID 500 MG TABLET PO SCH (10:17)
[2020-04-04] MEDS: INSULIN GLARGINE 100 UNITS/ML SQ SCH ×2 (10:17→20:25)
[2020-04-04] MEDS: CEFTRIAXONE/SWI 1gm 1 GM/10 ML SYR IV SCH (10:17)
[2020-04-04] MEDS: JUVEN PACKET PO SCH ×2 (10:17→20:25)
[2020-04-04] MEDS: METOPROLOL TAR 25 MG TAB PO SCH (10:18)
[2020-04-04] MEDS: DOXYCYCLINE 100 MG CAP PO SCH ×2 (10:19→20:24)
--- NOTE | 2020-04-04 13:22 | PN ---
Date of Progress Note: 04/04/2020 Subjective: Patient was admitted with COVID pneumonia, complicated with respiratory failure, subcutaneous emphysema. Patient on vent, require high FiO2. Patient in prone position. Patient had hypernatremia; currently, hyponatremia. Patient has been on diuresis even balance in the last few days. Physical Examination: Vital Signs: Blood pressure 112/46, pulse of 51. The patient had urine output of 2 L positive balance is of 200. Chest because of the subcutaneous emphysema, crepitus bilateral abdomen could not be exam as the patient on: Position extremity plus edema. Subcutaneous emphysema on the upper extremity. Laboratory Data: WBC 5.2, H and H 8.6/26.8, platelet down 219. Sodium 139, potassium 3.9, bicarb 43, BUN 86, creatinine 0.8, calcium 8.9, ferritin 1600. Albumin is 2.1. PTH 29. Chest x-ray done today showing congestion, subcutaneous emphysema. Compared to previous chest x-ray slightly better. Current Medications: The patient on its include, 1. Doxycycline. 2. Ceftriaxone. 3. Tylenol. 4. Haloperidol. 5. Tube feeding. 6. Lasix as needed. 7. Patient was started on acetazolamide today. 8. Solu-Medrol 40 b.i.d. Assessment And Plan: 1. Acute kidney injury secondary to poor perfusion, acute tubular necrosis, recovered. 2. Hypernatremia, resolved. 3. Hyponatremia. Sodium is trending up. I am going to go ahead and decrease free water to 25 q.6. We will consult with pharmacy to concentrate fluid. I am going to go ahead and increase his insulin to avoid diuresis. 4. Hypertension, controlled optimal. 5. COVID pneumonia, respiratory failure by Pulmonary. We will diurese p.r.n. 6. Anasarca, subcutaneous emphysema. Continue supportive care. Follow up with Pulmonary. We will continue p.r.n. diuresis. 7. Alkalosis secondary to hypercapnic respiratory acidosis. Patient was started on acetazolamide. We will follow up. Time spent discussing with the patient, [id number], using the translation, discussing with the staff and placing an order, discussing with over subspecialty and hospitalist 45 minutes. DYLAN Voice ID: [id number] Report ID: [id number] MTDD
[2020-04-04] MEDS: ATORVASTATIN 20 MG TAB PO SCH (20:23)
[2020-04-04] MEDS: ALBUMIN HUMAN 25% 100 ML IV SCH (20:25)
[2020-04-05] MEDS: propofoL 1,000 MG/100 ML VIAL IV PRN ×5 (03:56→23:29)
[2020-04-05] MEDS: LEVOTHYROXINE SOD 0.1 MG TAB PO SCH (06:00)
[2020-04-05 06:22] LABS: Arterial Blood Carboxyhemoglob 2.4 % (0-1.5); Blood Gas Oxyhemoglobin 88.1 % (94-97); Blood O2 Saturation 91.5 % (92-98.5)
[2020-04-05 06:36] LABS: Protime INR 0.96
[2020-04-05] MEDS: INSULIN -REGULAR HUMAN 50 UNIT/0.5 ML ML SQ SCH ×4 (06:45→17:50)
[2020-04-05 07:19] LABS: Albumin 2.1 g/dL (3.4-5.0); Bilirubin Total 0.9 mg/dL (0.2-1.0); C-Reactive Protein 93.6 mg/L (<3.00); Ferritin 1904.1 ng/mL (26-388); Magnesium 2.5 mg/dL (1.8-2.4); Protein, Total 4.4 g/dL (6.4-8.2)
[2020-04-05] MEDS: JUVEN PACKET PO SCH ×2 (08:34→21:00)
[2020-04-05] MEDS: LACTOBACILLUS/ACIDOPHILUS TAB PO SCH ×3 (08:34→21:00)
[2020-04-05] MEDS: INSULIN GLARGINE 100 UNITS/ML SQ SCH (08:35)
[2020-04-05] MEDS: FAMOTIDINE 20 MG TAB PO SCH ×2 (08:36→21:00)
[2020-04-05] MEDS: CEFTRIAXONE/SWI 1gm 1 GM/10 ML SYR IV SCH (08:36)
[2020-04-05] MEDS: METHYLPREDNISOLONE 40 MG INJ IV SCH (08:37)
[2020-04-05] MEDS: VITAMIN D 1000 UNIT TAB PO SCH (08:38)
[2020-04-05] MEDS: DOXYCYCLINE 100 MG CAP PO SCH ×2 (08:42→21:00)
[2020-04-05] MEDS ORDERED: ALBUMIN HUMAN 25% 50 ML IV ONE (08:42)
[2020-04-05] MEDS: THIAMINE 200 MG/2 ML INJ IVP SCH ×2 (08:44→21:00)
--- NOTE | 2020-04-05 08:46 | RAD REPORT ---
EXAM DESCRIPTION: RAD - Chest Single View - 04/05/2020 6:11 am CLINICAL HISTORY: covid Chest pain. COMPARISON: Chest Single View dated 04/04/2020; Chest Single View dated 04/03/2020; Abdomen 1 View ([facility]) dated 04/02/2020; Chest Single View dated 04/02/2020 FINDINGS: Portable technique limits examination quality. Tip of the endotracheal tube is above the david. Enteric tube descends into the upper abdomen. Right -sided PICC line is unchanged. Extensive bilateral pulmonary opacities are stable.Significant subcuta neous emphysema is unchanged. IMPRESSION: Stable chest since 04/04/2020.
[2020-04-05] MEDS ORDERED: ZINC SULFATE 220 MG CAP PO SCH (09:00)
[2020-04-05] MEDS ORDERED: ACETAZOLAMIDE 500 MG IV IV SCH (09:00)
[2020-04-05] MEDS: ALBUMIN HUMAN 25% 100 ML IV SCH (09:00)
[2020-04-05] MEDS ORDERED: FUROSEMIDE 20 MG/ 2ML VIAL IV SCH (09:00)
[2020-04-05] MEDS ORDERED: FUROSEMIDE 40 MG/4 ML VIAL IV ONE (11:42)
--- NOTE | 2020-04-05 12:38 | PN ---
Date of Progress Note: 04/05/2020 Subjective: The patient was admitted with COVID pneumonia. Has respiratory failure. The patient was placed on vent, high PEEP, high FiO2. The patient developed subcutaneous emphysema. The patient had having anasarca yesterday. We added albumin to try to establish negative fluid status. Physical Examination: Vital Signs: Blood pressure 96/38, pulse of 62. The patient had good urine output of 1600, improving from yesterday. Chest: Crackles bilateral. Emphysematous crepitus. Heart: S1, S2. Abdomen: The patient in prone position. Extremities: Subcutaneous emphysema of both upper extremities, +1 on the lower. Laboratory Data: WBC 5.2, H and H 8.6/26.8, platelets 119. Sodium 139, potassium 4, bicarb 42, BUN 95, creatinine 0.8, calcium 9.2. Current Medications: The patient on include; 1. Ceftriaxone. 2. Doxycycline. 3. Zinc sulfate. 4. Pepcid. 5. Levothyroxine. 6. Solu-Medrol. 7. Cholecalciferol. 8. Thiamin. Assessment And Plan: 1. Acute kidney injury secondary to toxic acute tubular necrosis, COVID nephropathy, on the recovery, still overall volume. I am going to give the albumin again today. We will give single dose of Lasix to try to mobilize the fluid from the third space. Keep minimal free water and we will follow up. 2. Hypertension, currently on the lower side. We will continue to monitor. 3. Sepsis/septic shock. Continue current supportive care. 4. Respiratory failure secondary to COVID pneumonia. Continue vent. Follow up with Pulmonary. 5. Thrombocytopenia secondary to sepsis. DIC has been ruled out. We will follow up with the primary. Time spent discussing with the patient, [id number], using the translation, discussing with the staff and placing an order, discussing with over subspecialty and hospitalist 45 minutes. CLIFF/JANNA Voice ID: [id number] Report ID: [id number] GABRIELA
--- NOTE | 2020-04-05 12:50 | P.PN ---
Subjective Date of Service: 04/05/20 Primary Care Provider: Blake Chief Complaint: Respiratory failure patient is not doing well still on significant amount of oxygen he has extensive bilateral infiltrates subcutaneous emphysema is improving Review of Systems is unable to be obtained Physical Examination - Vital Signs Temperature: 97.6 F Blood Pressure: 96/38 Pulse: 62 Respirations: 30 Pulse Ox (%): 90 - Physical Exam General: Unresponsive Respiratory: Other ( significant decrease in subcutaneous emphysema) Cardiovascular: Edema Other Physical/Emotional Findings: Patient remains intubated - Studies Medications List Reviewed: Yes Assessment & Plan - Problems (Diagnosis) (1) Pneumonia due to COVID-19 virus Current Visit: Yes Status: Acute Plan: respiratory failure still requiring significant amount of oxygen hypoxic hypercapnic extensive bilateral infiltrates increased dose of Solu-Medrol 1 dose of ivermectin again blood sugars elevated bicarbonate elevated currently on maximum therapy ferritin levels have increased again
[2020-04-05] MEDS ORDERED: FUROSEMIDE 40 MG in NA CHLORIDE 0.9% 100 ML IV ONE (13:00)
[2020-04-05] MEDS: ASCORBIC ACID 500 MG TABLET PO SCH ×2 (14:00→21:00)
[2020-04-05] MEDS: IVERMECTIN 3 MG TABLETS PO ONE (15:28)
--- NOTE | 2020-04-05 16:05 | P.PN ---
Subjective Date of Service: 04/04/20 Patient with no new changes. Patient declining. Review of Systems 10-point ROS is otherwise unremarkable Physical Examination - Vital Signs Temperature: 97.6 F Blood Pressure: 95/35 Pulse: 68 Respirations: 30 Pulse Ox (%): 77 - Physical Exam General: Alert, In no apparent distress, Oriented x3 Respiratory: Diminished, Crackles/rales Cardiovascular: Regular rate/rhythm, Normal S1 S2, No murmurs Gastrointestinal: Normal bowel sounds, Soft and benign, Non-distended, No tenderness Musculoskeletal: No clubbing, No swelling Neurological: Sensation intact, Cranial nerves 3-12 intact Other Physical/Emotional Findings: Patient remains intubated - Studies Medications List Reviewed: Yes Assessment & Plan - Problems (Diagnosis) (1) Acute respiratory failure due to COVID-19 Current Visit: Yes Status: Acute (2) Hypoxia Current Visit: Yes Status: Acute (3) Thrombocytopenia Current Visit: Yes Status: Acute (4) Leukocytosis Current Visit: Yes Status: Acute (5) Renal insufficiency Current Visit: Yes Status: Acute (6) History of minimal change disease Current Visit: Yes Status: Acute (7) Atrial fibrillation with rapid ventricular response Current Visit: Yes Status: Acute (8) Hypermagnesemia Current Visit: Yes Status: Acute (9) Pneumomediastinum Current Visit: Yes Status: Acute (10) Subcutaneous emphysema Current Visit: Yes Status: Acute - Plan Continue with plan of care as mentioned below: 1. Patient continues to do poorly. Remains hypoxic. Not oxygenating well. Poor prognosis 2. Monitor platelet count; thrombocytopenic 3. Inflammatory markers stable 4. Continue with gentle diuresing. Monitor metabolic alkalosis. 5. Patient's hypoxemia is not really improving. Will need to keep patient prone as much as possible 6. May need to continue with nebs as needed 7. Continue with IV steroids 8. GI and DVT prophylaxis Discharge Plan: Home Plan to discharge in: Greater than 2 days - Advance Directives Does patient have a Living Will: No Does patient have a Durable POA for Healthcare: No - Code Status/Comfort Care Code Status: Full Code Critical Care: Yes Time Spent Managing PTS Care (In Minutes): 35
[2020-04-05 16:38] LABS: HBsAG Nonreactive (Nonreactive)
[2020-04-05] MEDS: CISATRACURIUM BESYLATE 40 MG in NA CHLORIDE 0.9% 80 ML IV PRN ×2 (16:39→20:18)
[2020-04-05 16:40] LABS: Arterial Blood Carboxyhemoglob 2.4 % (0-1.5); Blood Gas Oxyhemoglobin 76.2 % (94-97); Blood O2 Saturation 78.9 % (92-98.5)
--- NOTE | 2020-04-05 16:41 | RAD REPORT ---
EXAM DESCRIPTION: Latanya Single View04/05/2020 4:34 pm CLINICAL HISTORY: Shortness of breath/hypoxia COMPARISON: April 05 FINDINGS: No significant change in the pneumomediastinum, subcutaneous emphysema in bilateral pulmo nary opacities Endotracheal and feeding tubes in good position. PICC line is present IMPRESSION: No significant change since an earlier film on the same date
[2020-04-05] MEDS: METHYLPREDNISOLONE 125 MG INJ IV SCH (17:55)
[2020-04-05] MEDS: ATORVASTATIN 20 MG TAB PO SCH (21:00)
[2020-04-05] MEDS ORDERED: INSULIN GLARGINE 100 UNITS/ML SQ SCH (21:00)
[2020-04-06] MEDS: INSULIN -REGULAR HUMAN 50 UNIT/0.5 ML ML SQ SCH
[2020-04-06] MEDS: CISATRACURIUM BESYLATE 40 MG in NA CHLORIDE 0.9% 80 ML IV PRN (00:23)
[2020-04-06] MEDS: METHYLPREDNISOLONE 125 MG INJ IV SCH (01:00)
[2020-04-06 05:04] VITALS: O2SAT 44
[2020-04-06 11:55] VITALS: BP 121/66; TEMP 97.5
[2020-04-07 13:02] LABS: Vitamin D 1,25-Dihydroxy Total 54 pg/mL (18-72); Vitamin D,1,25-OH2, D2 <8 pg/mL
--- NOTE | 2020-04-11 04:20 | P.PN ---
Date of Service: 04/05/20 Subjective Patient with no new changes. Patient Continued to decline. Notified family. They will make her a DNR. They will come the bedside to visit with their dad. Review of Systems 10-point ROS is otherwise unremarkable Physical Examination - Vital Signs Reviewed - Physical Exam General: Intubated and sedated. Respiratory: Diminished, Crackles/rales Cardiovascular: Regular rate/rhythm, Normal S1 S2, No murmurs Gastrointestinal: Normal bowel sounds, Soft and benign, Non-distended, No tenderness Musculoskeletal: No clubbing, No swelling Neurological: Sensation intact, Cranial nerves 3-12 intact Other Physical/Emotional Findings: Patient remains intubated - Studies Medications List Reviewed: Yes Assessment & Plan - Problems (Diagnosis) (1) Acute respiratory failure due to COVID-19 Current Visit: Yes Status: Acute (2) Hypoxia Current Visit: Yes Status: Acute (3) Thrombocytopenia Current Visit: Yes Status: Acute (4) Leukocytosis Current Visit: Yes Status: Acute (5) Renal insufficiency Current Visit: Yes Status: Acute (6) History of minimal change disease Current Visit: Yes Status: Acute (7) Atrial fibrillation with rapid ventricular response Current Visit: Yes Status: Acute (8) Hypermagnesemia Current Visit: Yes Status: Acute (9) Pneumomediastinum Current Visit: Yes Status: Acute (10) Subcutaneous emphysema Current Visit: Yes Status: Acute - Plan Continue with plan of care as mentioned below: 1. Patient continues to do poorly. Remains hypoxic. Not oxygenating well. Poor prognosis 2. Monitor platelet count; thrombocytopenic 3. Inflammatory markers stable 4. Continue with gentle diuresing. Monitor metabolic alkalosis. 5. Patient's hypoxemia is not really improving. Will need to keep patient prone as much as possible 6. May need to continue with nebs as needed 7. Continue with IV steroids 8. GI and DVT prophylaxis Discharge Plan: Home Plan to discharge in: Greater than 2 days Critical Care: Yes Time Spent Managing PTS Care (In Minutes): 35
--- NOTE | 2020-04-11 04:23 | P.DS ---
Discharge Date: 04/06/20 Primary Care Provider: Blake Disposition: Discharge Condition: Reason for Admission: Respiratory failure - Problems (1) Acute respiratory failure due to COVID-19 Status: Acute (2) Hypoxia Status: Acute (3) Thrombocytopenia Status: Acute (4) Leukocytosis Status: Acute (5) Renal insufficiency Status: Acute (6) History of minimal change disease Status: Acute (7) Atrial fibrillation with rapid ventricular response Status: Acute (8) Hypermagnesemia Status: Acute (9) Pneumomediastinum Status: Acute (10) Subcutaneous emphysema Status: Acute Brief History of Present Illness: This is a 74 y/o M with history of hypothyroidism, hyperlipidemia, and nephrotic syndrome who present to the ED via EMS today after being called out for increased shortness of breath that started about 3 days ago. Patient stated that him and his started to present with s/s of COVID last week. Was recently tested this past Thursday and resulted positive. Stated that he had been doing ok until the shortness of breath worsened. Patient hypoxic in the 80s per EMS. Was put on oxygen in the ED and worked up for dyspnea including having CT showing signs consistent with COVID pneumonia. Patient had stable labs otherwise. Medicine consulted at that time for admission for COVID pneumonia with hypoxia Hospital Course: Patient fought hard throughout the course of 2-3 weeks. Patient's condition weekend. Patient required period lytics and sedation. Patient had a complicated stay in the intensive care unit. Eventually patient's condition worsened and Dee ayers made a decision to keep him comfortable. Patient on the morning of April 06, 2020. Other Physical/Emotional Findings: Patient remains intubated Laboratory Data at Discharge: WBC 5.2 K/uL (4.3-10.9) D 04/04/20 05:00 Hgb 8.6 g/dL (13.6-17.9) L 04/04/20 05:00 Hct 26.8 % (39.6-49.0) L 04/04/20 05:00 Plt Count 19 K/uL (152-406) L* 04/04/20 05:00 PT 11.3 SECONDS (9.5-12.5) 04/05/20 06:00 INR 0.96 04/05/20 06:00 APTT 23.5 SECONDS (24.3-36.9) L 04/05/20 06:00 Sodium Cancelled 04/06/20 05:00 Potassium Cancelled 04/06/20 05:00 BUN Cancelled 04/06/20 05:00 Creatinine Cancelled 04/06/20 05:00 Glucose Cancelled 04/06/20 05:00 Uric Acid 2.9 mg/dL (3.5-7.2) L 04/04/20 05:00 Phosphorus 4.0 mg/dL (2.5-4.9) 04/03/20 05:45 Magnesium Cancelled 04/06/20 05:00 Total Bilirubin Cancelled 04/06/20 05:00 AST Cancelled 04/06/20 05:00 ALT Cancelled 04/06/20 05:00 Alkaline Phosphatase Cancelled 04/06/20 05:00 Troponin I 0.25 ng/mL (0.0-0.045) H 03/22/20 04:33 Lipase 112 U/L (73-393) 03/19/20 16:38 Home Medications: RX: Atorvastatin Calcium [Lipitor*] 20 mg PO BEDTIME 11/01/13 RX: Levothyroxine [Synthroid*] 100 mcg PO [id number] 11/01/13 Amoxicillin/Potassium Clav [Amox-Clav 875-125 mg Tablet] 1 each PO Q12HR 03/08/20 Patient Discharge Instructions: Patient on April 06, 2020. Followup: Unknown,U [Primary Care Provider] - Time spent managing pt's care (in minutes): 35
== END 2020-04-06 07:05 | disposition expired | DRG 870 ==
LOC: ER 00:46 → ERHOLD 03:47 → 4TH 05:19 → 3RD-ICU 17:47
PROVIDERS: ADMIT Hospitalist; ATTEND Hospitalist
PROC: XW033E5 Introduction of Remdesivir Anti-infective into Peripheral Vein, Percutaneous Approach, New Technology Group 5 (ICD-10-PCS; 2020-03-08)
PROC: 30233L1 Transfusion of Nonautologous Fresh Plasma into Peripheral Vein, Percutaneous Approach (ICD-10-PCS; 2020-03-16)
PROC: 5A1955Z Respiratory Ventilation, Greater than 96 Consecutive Hours (ICD-10-PCS; principal; 2020-03-18)
PROC: 0BH17EZ Insertion of Endotracheal Airway into Trachea, Via Natural or Artificial Opening (ICD-10-PCS; 2020-03-18)
PROC: 02HV33Z Insertion of Infusion Device into Superior Vena Cava, Percutaneous Approach (ICD-10-PCS; 2020-04-01)
PROC: 30233N1 Transfusion of Nonautologous Red Blood Cells into Peripheral Vein, Percutaneous Approach (ICD-10-PCS; 2020-04-02)
DX: A41.89 Other specified sepsis (principal); U07.1 COVID-19; J12.82 Pneumonia due to coronavirus disease 2019; J96.01 Acute respiratory failure with hypoxia; G92 Toxic encephalopathy; E87.0 Hyperosmolality and hypernatremia; N04.9 Nephrotic syndrome with unspecified morphologic changes; T79.7XXA Traumatic subcutaneous emphysema, initial encounter; E87.3 Alkalosis; E87.1 Hypo-osmolality and hyponatremia; E87.2 Acidosis; N17.9 Acute kidney failure, unspecified; E44.1 Mild protein-calorie malnutrition; E78.5 Hyperlipidemia, unspecified; E03.9 Hypothyroidism, unspecified; R94.5 Abnormal results of liver function studies; D69.6 Thrombocytopenia, unspecified; I48.0 Paroxysmal atrial fibrillation; E83.41 Hypermagnesemia; J43.8 Other emphysema; R31.29 Other microscopic hematuria; R80.9 Proteinuria, unspecified; E83.51 Hypocalcemia; R73.01 Impaired fasting glucose; R60.0 Localized edema; R73.9 Hyperglycemia, unspecified; R73.03 Prediabetes; Z66 Do not resuscitate; Z68.28 Body mass index [BMI] 28.0-28.9, adult; Z88.8 Allergy status to other drugs, medicaments and biological substances; Z79.899 Other long term (current) drug therapy; Z79.890 Hormone replacement therapy
CPT/HCPCS: 36415; 36569; 71045; 71275; 74018; 80048; 80053; 80069; 80076; 80202; 81001; 82248; 82550; 82565; 82570; 82652; 82728; 82805; 82947; 83010; 83036; 83605; 83615; 83690; 83735; 83880; 83970; 84100; 84145; 84156; 84165; 84439; 84443; 84484; 84550; 85014; 85018; 85025; 85044; 85379; 85384; 85610; 85730; 86021; 86038; 86140; 86160; 86225; 86317; 86430; 86704; 86706; 86850; 86900; 86901; 86927; 87040; 87070; 87077; 87086; 87088; 87186; 87205; 87340; 87389; 87522; 93005; 93306; 94002; 94003; 94010; 94660; 94760; 96361; 96374; 99283; 99285; J0282; J0330; J0460; J0692; J0696; J1100; J1170; J1450; J1630; J1650; J1815; J1940; J2185; J2250; J2704; J2920; J2930; J3010; J3370; J3411; J7030; J7040; J7050; J7060; J7799; P9016; P9047; Q9967; U0003